=== PATIENT | male | born 1995 | race Caucasian/White ===

== ENCOUNTER 2017-06-22 08:19 | Emergency (ER) | payer OTHER, SELFPAY ==
[2017-06-22 08:21] VITALS: BP 149/80; PULSE 102; RESP 18; TEMP 36.6; O2SAT 97; BMI 40.6
--- NOTE | 2017-06-22 08:32 | XR_ITS ---
XR chest 2V Ordering Physician: Tamara Mason MD Patient Age: 22 years: Male HISTORY: ITS.REASON: chest pain, coughchest pain. Cough. Fever. TECHNIQUE: PA and lateral chest COMPARISON :Previous chest film 10/21/2015 FINDINGS The lungs are well expanded and clear with nothing definitely acute. Heart, john, mediastinal structures are satisfactory chest wall T-spine unremarkable. tram driver leads in place. IMPRESSION: Stable chest No active disease Lungs clear.
--- NOTE | 2017-06-22 08:40 | CA_ITS ---
PROCEDURE: 2-D M-mode and color Doppler study INDICATIONS FOR THE TEST: Chest pain+ COPD Heart Murmur Tobacco Smoking Palpitations Fatigue Syncope Edema Hypertension +Diabetes Mellitus Rheumatic Fever SOB TORRES Obesity+Hyperlipidemia Family History HD Additional History smokeless tobacco PATIENT INFORMATION HEIGHT: 74 WEIGHT: 317 GENDER: Male B/P:121/74 2-D/M-MODE INTERPRETATION: 2-D MEASUREMENTS OBSERVED VALUES IN CMS Right Ventricular Dimension (RVDd) 3.0 Interventricular Septum (Thickness)(IVsd) 1.2 Left Ventricular Internal Dimensions(LVIDd) 5.2 Left Ventricular Posterior Wall (Thickness)(LVPWd) 1.1 Aortic Root 2.8 Aortic Cusp Separation 2.1 Left Atrial Dimensions (LAD) 3.8 2D 1. Left atrium is upper limit of the normal size, left ventricle is normal size, there is no concentric left ventricular hypertrophy, visually estimated ejection fraction 55% with no obvious regional wall motion abnormality. 2.The right atrium is normal size, right ventricle is qualitatively mildly enlarged with normal contractility. 3. The aortic, mitral and tricuspid valve are structurally normal. 4. The pulmonic valve is poorly visualized. 6. No significant pericardial effusion noted. DOPPLER INTERROGATION: Doppler interrogation of the aortic, mitral and tricuspid valvular presence of mild mitral and tricuspid regurgitation, tricuspid and jet velocity insufficient for calculation of the right ventricular systolic pressure, diastolic parameters are within normal range. CONCLUSION: 1. Normal left ventricular size, preserved left ventricular systolic function, visually estimated ejection fraction 55% with no obvious regional wall motion abnormality, diastolic parameters are within normal range. 2. Mild mitral and tricuspid regurgitation. 3. No significant pericardial effusion noted.
--- NOTE | 2017-06-22 08:43 | HMH.EDCP ---
ED Disposition Clinical Impression: Atypical chest pain URI (upper respiratory infection) Qualifiers: URI type: acute pharyngitis Pharyngitis/tonsillitis etiology: unspecified etiology Qualified Code(s): J02.9 - Acute pharyngitis, unspecified Disposition: Home, Self-Care Condition on Discharge: Good Additional Instructions: Take daily low dose aspirin until otherwise specified by cardiology service; see your dependency director in one to two days; call for appointment. Drink lots of fluids, take Tylenol as needed. Continue all current medications. See Davon for follow up on your cough and sore throat next week for recheck, sooner if not improving. Referrals: Davon Concepcion APRN [Primary Care Provider] - - Critical Care Critical Care Time: No Attestation: On , the high probability of a clinically significant, sudden or life threatening deterioration of the following system(s) required my full and direct attention, intervention and personal management. The time I documented below is in addition to time spent performing reported procedures but includes the following listed in this critical care notation. Medical Decision Making - Medical Records Medical records reviewed: Yes: I reviewed the patient's medical records. Vital Signs: 06/22/17 08:21 06/22/17 09:26 Temperature 97.9 F Temperature Source Oral Pulse Rate [Apical] 102 H 86 Respiratory Rate 18 18 Blood Pressure [Right Arm] 149/80 115/57 Blood Pressure Mean [Right Arm] 103 76 Blood Pressure Source [Right Arm] Automatic Cuff Automatic Cuff Blood Pressure Position [Right Arm] Sitting Sitting 02 Sat by Pulse Oximetry 97 Oxygen Delivery Method Room Air - Lab Data Lab results reviewed: Yes: I reviewed the patient's lab results. Lab Results 06/22/17 08:30: WBC 5.3, RBC 5.40, Hgb 15.3, Hct 43.9, MCV 81.4, MCH 28.3, MCHC 34.8, RDW 13.0, Plt Count 255, MPV 7.4, Neut % (Auto) 67.4, Lymph % (Auto) 16.2, [place] % (Auto) 12.2 H, Eos % (Auto) 3.3, Baso % (Auto) 0.9, Neut # (Auto) 3.6, Lymph # (Auto) 0.9, [place] # (Auto) 0.7, Eos # (Auto) 0.2, Baso # (Auto) 0.1 06/22/17 08:30: Total Creatine Kinase 82, CK-MB (CK-2) < 0.5, CK-MB (CK-2) Rel Index 0.6, Troponin I < 0.02 06/22/17 08:30: Influenza Type A Ag Negative, Influenza Type B Ag Negative, Group A Strep Rapid Negative 06/22/17 08:49: Lactic Acid 0.6 ESR added on per request by Jonnathan Fisher and will be checked by Jonnathan Fisher at follow up in Cardiology office. Result diagrams: 06/22/17 08:30 Orders (Tests/Meds): ED MEDICATIONS Discontinued Medications Generic Name Dose Route Start Last Admin Trade Name Marcoq PRN Reason Stop Dose Admin Aspirin 325 mg 06/22/17 09:08 06/22/17 09:19 Aspirin 325mg Tablet PO 06/22/17 09:09 325 mg ONCE ONE Administration Carvedilol 3.125 mg 06/22/17 09:15 06/22/17 09:24 Coreg 3.125mg Tablet PO 07/22/17 09:14 3.125 mg BID SAM Administration Irbesartan 75 mg 06/22/17 09:11 06/22/17 09:24 Avapro 75mg Tablet PO 06/22/17 09:12 75 mg ONCE ONE Administration ORDERS Category Date Time Status XR chest 2V Stat Exams 06/22/17 08:32 Taken ESR [Erythrocyte Sedimentation Rate] Stat Lab 06/22/17 09:52 Ordered Blood Culture Stat Micro 06/22/17 08:49 Received Strep Screen Confirmation Stat Micro 06/22/17 08:30 Received - Radiology Data #1 Image(s): Chest Image Reviewed: Yes I reviewed the patient's radiology image Preliminary Findings: Normal/NAD, No Infiltrates Seen, Normal Lung Inflation Ricky, Normal Heart Size - US Data US Images: Other (cardiac ECHO) ED US Reviewed: Yes: I have reviewed the patient's US results Preliminary Findings: Normal/NAD (Tech states no change from prior echo. Normal, no acute findings. EF 50-55%. No valvular abnormalities. No evidence of pericarditis per my discussion with tach. Final reading is pending.) - ECG Data Tracing #1 I reviewed this ECG and interpreted as documented below: EKG NSR 94; n
--- NOTE | 2017-06-22 08:44 | PC.NURSE ---
[facility] AT [facility] STAFF NOTIFIED OF ORDERS.
[2017-06-22 08:54] LABS: Strep Scrn Group A (Rapid) Negative (Negative)
[2017-06-22 09:01] LABS: Basophils # 0.1 K/mm3 (0-0.2); Basophils % 0.9 % (0.1-2.0); Eosinophils # 0.2 K/mm3 (0.0-0.4); Eosinophils % 3.3 % (0.1-12.0); Hematocrit 43.9 % (42.0-52.0); Hemoglobin 15.3 g/dL (14.1-18.0); Lymphocytes # 0.9 K/mm3 (0.7-4.5); Lymphocytes % 16.2 K/mm3 (10-50); Mean Corpuscular HGB Conc 34.8 g/dL (31.8-35.4); Mean Corpuscular Hemoglobin 28.3 pg (27.0-31.2); Mean Corpuscular Volume 81.4 fl (80-94); Mean Platelet Volume 7.4 fl (7.4-10.4); Monocytes # 0.7 K/mm3 (0.1-1.0); Monocytes % 12.2 % (1.7-9.3); Neutrophils # 3.6 K/mm3 (1.8-7.8); Neutrophils % 67.4 % (37.0-80.0); Platelet Count 255 K/mm3 (142-424); White Blood Count 5.3 K/mm3 (4.8-10.8)
[2017-06-22 09:18] LABS: Lactic Acid 0.6 mmol/L (0.4-2.0)
[2017-06-22 09:26] VITALS: BP 115/57; PULSE 86; RESP 18
[2017-06-22 09:33] LABS: Creatine Kinase 82 U/L (39-308); Troponin I < 0.02 ng/ml (0.00-0.06)
[2017-06-22 09:35] LABS: CKMB Relative Index 0.6 U/L (0-4.0); Creatine Kinase MB < 0.5 mg/ml (0.0-3.6)
--- NOTE | 2017-06-22 09:47 | PC.NURSE ---
GINA casillas contacting AARON BATEMAN
[2017-06-22 10:04] VITALS: BP 108/60; PULSE 90; RESP 18; O2SAT 97
[2017-06-22 10:42] LABS: Erythrocyte Sedimentation Rate 22 mm/hr (0-15)
== END 2017-06-22 10:14 | disposition home or self-care (01) ==
PROVIDERS: Emergency Provider Emergency Medicine; PCP Nurse Practitioner Family
DX: R07.89 Other chest pain (principal); J02.9 Acute pharyngitis, unspecified; I42.9 Cardiomyopathy, unspecified; I10 Essential (primary) hypertension; F17.220 Nicotine dependence, chewing tobacco, uncomplicated; E78.5 Hyperlipidemia, unspecified; Z82.49 Family history of ischemic heart disease and other diseases of the circulatory system; Z79.899 Other long term (current) drug therapy
CPT/HCPCS: 36415; 71046; 82550; 82553; 83605; 84484; 85025; 85651; 87040; 87275; 87276; 87430; 93005; 93041; 93306; 99285

== ENCOUNTER 2017-07-26 17:35 | Emergency (ER) | payer OTHER, SELFPAY ==
[2017-07-26 17:44] VITALS: BP 140/67; PULSE 81; RESP 18; TEMP 37.3; O2SAT 96; BMI 42.2
--- NOTE | 2017-07-26 18:03 | HMH.EDABDPAI ---
ED Disposition Clinical Impression: Abdominal pain of unknown cause Disposition: Home, Self-Care Condition on Discharge: Good Instructions: DI for Acute Abdomen Additional Instructions: 1- clear liquids and soft diet. 2- bentyl 10 mg po q 8 PRN cramps. 3- follow up with Marialuisa Concepcion for a stool studies as an outpatient. 4- to return for fever, vomiting or worse pain. Prescriptions: Dicyclomine HCl [Bentyl 10mg capsule] 10 mg PO Q60MIN PRN #15 cap PRN Reason: Cramping Referrals: Davon Concepcion APRN [Primary Care Provider] - - Critical Care Critical Care Time: No Attestation: On 07/26/17, the high probability of a clinically significant, sudden or life threatening deterioration of the following system(s) required my full and direct attention, intervention and personal management. The time I documented below is in addition to time spent performing reported procedures but includes the following listed in this critical care notation. Medical Decision Making Vital Signs: 07/26/17 17:44 Temperature 99.1 F Temperature Source Oral Pulse Rate [Left Radial] 81 Respiratory Rate 18 Blood Pressure [Right Arm] 140/67 Blood Pressure Mean [Right Arm] 91 Blood Pressure Source [Right Arm] Arterial Line Blood Pressure Position [Right Arm] Sitting 02 Sat by Pulse Oximetry 96 Oxygen Delivery Method Room Air - Lab Data Lab Results 07/26/17 19:15: WBC 10.0, RBC 5.35, Hgb 14.8, Hct 44.3, MCV 82.7, MCH 27.6, MCHC 33.3, RDW 13.5, Plt Count 319, MPV 6.9 L, Neut % (Auto) 68.9, Lymph % (Auto) 20.4, [place] % (Auto) 5.5, Eos % (Auto) 4.7, Baso % (Auto) 0.5, Neut # (Auto) 6.9, Lymph # (Auto) 2.0, [place] # (Auto) 0.6, Eos # (Auto) 0.5 H, Baso # (Auto) 0.1 07/26/17 19:15: Sodium 139, Potassium 3.9, Chloride 102, Carbon Dioxide 30, Anion Gap 10.9, BUN 12, Creatinine 0.93, Estimated Creat Clear 142, Estimated GFR 103, Est GFR ( Amer) 124, Glucose 88, Calcium 8.9, Total Bilirubin 0.4, AST 14 L, ALT 34, Alkaline Phosphatase 120 H, Total Protein 8.6 H, Albumin 4.0, Globulin 4.6 H, Albumin/Globulin Ratio 0.9 L, Lipase 97 Result diagrams: 07/26/17 19:15 07/26/17 19:15 Orders (Tests/Meds): ED MEDICATIONS Discontinued Medications Generic Name Dose Route Start Last Admin Trade Name Rozina PRN Reason Stop Dose Admin Dicyclomine HCl 10 mg 07/26/17 18:09 07/26/17 19:50 Bentyl 10mg Capsule PO 07/26/17 18:10 10 mg ONCE ONE Administration ORDERS Category Date Time Status CT abdomen pelvis wo con Stat Cat Scan 07/26/17 18:08 Taken Urinalysis and Microscopic Stat Lab 07/26/17 18:08 Ordered - Daniel Inquiry Pt receiving controlled substance: No Daniel was queried for this patient: No Medical Decision Making Narrative: Patient underwent negative CT scan normal CBC and CMP negative lipase. I discussed with him the discharge plan. He is to go on clear liquids and soft diet. Will not use antibiotics for the time being. His Bentyl for symptomatic treatment. Up with his PCP Marialuisa Concepcion for outpatient stool studies. He verbalized understanding. Abdominal Pain HPI - General Chief Complaint: Abdominal Pain Stated Complaint: stomach pain Mode of Arrival: Ambulatory Limitations: No Limitations Description of Symptoms (Recalled from ER Triage Doc. by RN): Abd Pain x 4 days, did not take anything , loose mucous like stool - History of Present Illness HPI narrative: 22 years old white male with with the prior cardiac history of dysrhythmia. He developed sudden onset diffuse abdominal pain that is is stabbing/crampy in character involve different quadrants in the abdomen. He denies fever chills nausea vomiting or diarrhea. Hematemesis coffee-ground emesis bleeding per rectum or melanotic stool. He denies having dysuria hematuria frequency. Denies having back pain. He denies being short of breath having palpitations or chest. MD complaint: abdominal pain Onset (ago): day(s) (4 days .)
--- NOTE | 2017-07-26 18:07 | ED_ITS ---
ED Disposition Clinical Impression: Abdominal pain of unknown cause Disposition: Home, Self-Care Condition on Discharge: Good Instructions: DI for Acute Abdomen Additional Instructions: 1- clear liquids and soft diet. 2- bentyl 10 mg po q 8 PRN cramps. 3- follow up with Marialuisa Concepcion for a stool studies as an outpatient. 4- to return for fever, vomiting or worse pain. Prescriptions: Dicyclomine HCl [Bentyl 10mg capsule] 10 mg PO Q60MIN PRN #15 cap PRN Reason: Cramping Referrals: Davon Concepcion APRN [Primary Care Provider] - - Critical Care Critical Care Time: No Attestation: On 07/26/17, the high probability of a clinically significant, sudden or life threatening deterioration of the following system(s) required my full and direct attention, intervention and personal management. The time I documented below is in addition to time spent performing reported procedures but includes the following listed in this critical care notation. Medical Decision Making Vital Signs: 07/26/17 17:44 Temperature 99.1 F Temperature Source Oral Pulse Rate [Left Radial] 81 Respiratory Rate 18 Blood Pressure [Right Arm] 140/67 Blood Pressure Mean [Right Arm] 91 Blood Pressure Source [Right Arm] Arterial Line Blood Pressure Position [Right Arm] Sitting 02 Sat by Pulse Oximetry 96 Oxygen Delivery Method Room Air - Lab Data Lab Results 07/26/17 19:15: WBC 10.0, RBC 5.35, Hgb 14.8, Hct 44.3, MCV 82.7, MCH 27.6, MCHC 33.3, RDW 13.5, Plt Count 319, MPV 6.9 L, Neut % (Auto) 68.9, Lymph % (Auto ) 20.4, [place] % (Auto) 5.5, Eos % (Auto) 4.7, Baso % (Auto) 0.5, Neut # (Auto) 6.9, Lymph # (Auto) 2.0, [place] # (Auto) 0.6, Eos # (Auto) 0.5 H, Baso # (Auto) 0.1 07/26/17 19:15: Sodium 139, Potassium 3.9, Chloride 102, Carbon Dioxide 30, Anion Gap 10.9, BUN 12, Creatinine 0.93, Estimated Creat Clear 142, Estimated GFR 103, Est GFR ( Amer) 124, Glucose 88, Calcium 8.9, Total Bilirubin 0.4, AST 14 L, ALT 34, Alkaline Phosphatase 120 H, Total Protein 8.6 H, Albumin 4.0, Globulin 4.6 H, Albumin/Globulin Ratio 0.9 L, Lipase 97 Result diagrams: 07/26/17 19:15 07/26/17 19:15 Orders (Tests/Meds): ED MEDICATIONS Discontinued Medications Generic Name Dose Route Start Last Admin Trade Name Freq PRN Reason Stop Dose Admin Dicyclomine HCl 10 mg 07/26/17 18:09 07/26/17 19:50 Bentyl 10mg Capsule PO 07/26/17 18:10 10 mg ONCE ONE Administration ORDERS Category Date Time Status CT abdomen pelvis wo con Stat Cat Scan 07/26/17 18:08 Taken Urinalysis and Microscopic Stat Lab 07/26/17 18:08 Ordered - Daniel Inquiry Pt receiving controlled substance: No Daniel was queried for this patient: No Medical Decision Making Narrative: Patient underwent negative CT scan normal CBC and CMP negative lipase. I discussed with him the discharge plan. He is to go on clear liquids and soft diet. Will not use antibiotics for the time being. His Bentyl for symptomatic treatment. Up with his PCP Marialuisa Concepcion for outpatient stool studies. He verbalized understanding. Abdominal Pain HPI - General Chief Complaint: Abdominal Pain Stated Complaint: stomach pain Mode of Arrival: Ambulatory Limitations: No Limitations Description of Symptoms (Recalled from ER Triage Doc. by RN): Abd Pain x 4 days , did not take
--- NOTE | 2017-07-26 18:08 | CT_ITS ---
CT abdomen pelvis wo con CLINICAL INDICATION: Generalized abdominal pain, diffuse abdominal pain ITS.REASON: abdominal pain ORDERING PHYSICIAN: Jus Thomas MD PATIENT AGE: 22 years COMPARISON: None TECHNIQUE: Axial images obtained with sagittal and coronal reformats. PROCEDURE: Oral Contrast: None IV Contrast: None . FINDINGS: Lower thorax: No acute finding ABDOMEN: Liver: No masses or biliary dilatation. Gallbladder: Nondistended. No radio opaque stones. Pancreas: No masses or peripancreatic fluid collections. Spleen: Unremarkable. Adrenals: Unremarkable Kidneys/ureters: No masses. No renal calculi. No hydronephrosis. No perinephric fluid collections. No ureteral dilatation or obvious ureteral calculi. Stomach bowel: Nondistended. No obvious mass or thickening. Appendix: No evidence of appendicitis. PELVIS: Reproductive: Unremarkable Bladder: Nondistended. No obvious stones or masses. ABDOMEN & PELVIS: Peritoneum: No abnormal fluid collections. No obvious inflammatory changes. No free air. Lymph nodes: There are few scattered nonspecific mesenteric lymph nodes. Vasculature: No evidence of abdominal aortic aneurysm. No retroperitoneal hemorrhage evident. Bones: No acute fracture IMPRESSION: No acute abdominal or pelvic findings.
[2017-07-26 19:32] LABS: Basophils # 0.1 K/mm3 (0-0.2); Basophils % 0.5 % (0.1-2.0); Eosinophils # 0.5 K/mm3 (0.0-0.4); Eosinophils % 4.7 % (0.1-12.0); Hematocrit 44.3 % (42.0-52.0); Hemoglobin 14.8 g/dL (14.1-18.0); Lymphocytes % 20.4 K/mm3 (10-50); Mean Corpuscular HGB Conc 33.3 g/dL (31.8-35.4); Mean Corpuscular Hemoglobin 27.6 pg (27.0-31.2); Mean Corpuscular Volume 82.7 fl (80-94); Mean Platelet Volume 6.9 fl (7.4-10.4); Monocytes # 0.6 K/mm3 (0.1-1.0); Monocytes % 5.5 % (1.7-9.3); Neutrophils # 6.9 K/mm3 (1.8-7.8); Neutrophils % 68.9 % (37.0-80.0); Platelet Count 319 K/mm3 (142-424); Red Blood Count 5.35 M/mm3 (4.60-6.20); Red Cell Distribution Width 13.5 % (11.5-17.5)
[2017-07-26 19:43] LABS: Alanine Aminotransferase 34 U/L (12-78); Albumin/Globulin Ratio 0.9 (1.1-1.8); Alkaline Phosphatase 120 U/L (46-116); Anion Gap 10.9 mEq/L (5-15); Aspartate Amino Transferase 14 U/L (15-37); Bilirubin,Total 0.4 mg/dL (0.2-1.0); Blood Urea Nitrogen 12 mg/dL (7-18); Calcium 8.9 mg/dL (8.5-10.1); Carbon Dioxide 30 mmol/L (21.0-32.0); Chloride 102 mmol/L (98-107); Creatinine Clearance Estimated 142 mL/min (0-300); Creatinine,Serum 0.93 mg/dL (0.70-1.30); Estimated Glomerular Filt Rate 103 ml/min (>60); GFR (African American) 124 ML/MIN (>60); Globulin 4.6 gm/dl (1.3-3.2); Glucose 88 mg/dL (74-106); Lipase 97 u/L (73-393); Potassium 3.9 mmoL/L (3.5-5.1); Sodium 139 mmol/L (136-145); Total Protein,Serum 8.6 gm/dL (6.4-8.2)
[2017-07-26 20:02] LABS: Microscopic, Urine URINE MICROSCOPIC (MICROSCOPIC)
[2017-07-26 20:04] LABS: Appearance,Urine CLEAR (Clear); Bilirubin,Urine Negative (Negative); Blood, Urine 1+ (Negative); Color,Urine YELLOW (Yellow); Glucose,Urine (UA) Negative (Negative); Ketones,Urine Negative (Negative); Leukocyte Esterase,Urine Negative (Negative); Nitrate,Urine Negative (Negative); Protein,Urine Negative (Negative); Specific Gravity, Urine 1.015 (1.005-1.030); Urobilinogen,Urine 0.2 EU/dl (0.2)
[2017-07-26 20:18] VITALS: BP 129/91; PULSE 80; RESP 16; TEMP 36.9; O2SAT 100
[2017-07-26 20:48] LABS: WBC,Urine Occasional #/hpf (0-3)
[2017-07-26 20:49] LABS: Bacteria,Urine Trace /lpf; Squamous Epithelial Cell,Urine Occasional #/hpf (0-5)
== END 2017-07-26 20:19 | disposition home or self-care (01) ==
PROVIDERS: Emergency Provider Emergency Medicine; PCP Nurse Practitioner Family
DX: R10.9 Unspecified abdominal pain (principal); E78.5 Hyperlipidemia, unspecified; I10 Essential (primary) hypertension
CPT/HCPCS: 74176; 80053; 81001; 83690; 85025; 99282

== ENCOUNTER → 2017-09-22 10:05 | Outpatient (CLI) | payer OTHER, SELFPAY ==
[2017-09-22 14:25] LABS: Basophils # 0.1 K/mm3 (0-0.2); Basophils % 0.7 % (0.1-2.0); Eosinophils # 0.4 K/mm3 (0.0-0.4); Eosinophils % 6.5 % (0.1-12.0); Hematocrit 47.5 % (42.0-52.0); Lymphocytes # 1.9 K/mm3 (0.7-4.5); Lymphocytes % 27.6 K/mm3 (10-50); Mean Corpuscular HGB Conc 33.6 g/dL (31.8-35.4); Mean Corpuscular Hemoglobin 29.2 pg (27.0-31.2); Mean Corpuscular Volume 86.7 fl (80-94); Mean Platelet Volume 7.6 fl (7.4-10.4); Monocytes # 0.5 K/mm3 (0.1-1.0); Neutrophils % 58.1 % (37.0-80.0); Platelet Count 330 K/mm3 (142-424); Red Blood Count 5.48 M/mm3 (4.60-6.20); Red Cell Distribution Width 13.6 % (11.5-17.5); White Blood Count 6.8 K/mm3 (4.8-10.8)
[2017-09-22 14:41] LABS: Alanine Aminotransferase 34 U/L (12-78); Albumin Level 4.2 gm/dL (3.4-5.0); Alkaline Phosphatase 114 U/L (46-116); Anion Gap 14.6 mEq/L (5-15); Aspartate Amino Transferase 18 U/L (15-37); Bilirubin,Total 0.5 mg/dL (0.2-1.0); Blood Urea Nitrogen 12 mg/dL (7-18); Calcium 9.7 mg/dL (8.5-10.1); Carbon Dioxide 26 mmol/L (21.0-32.0); Chloride 106 mmol/L (98-107); Chol/HDL Ratio 4.9 (1-3.5); Cholesterol 156 mg/dL (140-200); Creatinine,Serum 0.81 mg/dL (0.70-1.30); Estimated Glomerular Filt Rate 120 ml/min (>60); GFR (African American) 146 ML/MIN (>60); Globulin 4.1 gm/dl (1.3-3.2); Glucose 89 mg/dL (74-106); HDL Cholesterol 32 mg/dL (27-67); LDL Cholesterol 93 mg/dL (0-130); Potassium 4.6 mmoL/L (3.5-5.1); Sodium 142 mmol/L (136-145); T4 (Thyroxine) 7.1 ug/dl (4.7-13.3); Thyroid Stimulating Hormone 0.58 uIU/ml (0.358-3.740); Total Protein,Serum 8.3 gm/dL (6.4-8.2); Triglycerides 157 mg/dL (30-200); VLDL Cholesterol 31 mg/dL (0-40)
[2017-09-22 14:45] LABS: Hemoglobin A1C 4.8 % (0.0-7.0)
[2017-09-23 17:42] LABS: Testosterone,Total 226 ng/dL (264-916); Vitamin D 25 Hydroxy 18.9 ng/mL (30.0-100.0)
== END ==
PROVIDERS: Visit Provider Physician Assistant
DX: I10 Essential (primary) hypertension (principal); Z83.3 Family history of diabetes mellitus
CPT/HCPCS: 80053; 80061; 82652; 83036; 84403; 84436; 84443; 85025

== ENCOUNTER → 2018-05-25 16:47 | Outpatient (CLI) | payer OTHER, SELFPAY ==
--- NOTE | 2018-05-25 16:50 | XR_ITS ---
XR abdomen min 2V HISTORY: Periumbilical pain ITS.REASON: ABDOMINAL PAIN ORDERING PHYSICIAN: AARON Garcia PATIENT AGE: 22 years COMPARISON: None FINDINGS: Upright and supine views of the abdomen show a nonspecific nonobstructive bowel gas pattern. There is mild lumbar scoliosis convex left. No acute bony anomalies or abnormal calcifications. IMPRESSION: Mild levoscoliosis otherwise negative
== END ==
PROVIDERS: PCP Physician Assistant; Visit Provider Physician Assistant
DX: R10.9 Unspecified abdominal pain (principal)
CPT/HCPCS: 74019

== ENCOUNTER → 2018-07-21 09:33 | Outpatient (CLI) | payer OTHER, SELFPAY ==
--- NOTE | 2018-07-21 09:35 | CA_ITS ---
PROCEDURE: 2-D M-mode and color Doppler study INDICATIONS FOR THE TEST: Chest pain X COPD Heart Murmur Tobacco Smoking Palpitations Fatigue Syncope Edema HypertensionXDiabetes Mellitus Rheumatic Fever SOB TORRES ObesityXHyperlipidemiaX Family History HD Additional History PATIENT INFORMATION HEIGHT: 73 WEIGHT:319 GENDER: Male B/P:107/68 2-D/M-MODE INTERPRETATION: 2-D MEASUREMENTS OBSERVED VALUES IN CMS Right Ventricular Dimension (RVDd) 2.2 Interventricular Septum (Thickness)(IVsd) .9 Left Ventricular Internal Dimensions(LVIDd) 5.4 Left Ventricular Posterior Wall (Thickness)(LVPWd) 1.2 Aortic Root 3.5 Aortic Cusp Separation 2.4 Left Atrial Dimensions (LAD) 3.1 2D 1. Left atrium is normal size, left ventricle is normal size, there is no concentric left ventricular hypertrophy, visually estimated ejection fraction 55% with no regional wall motion abnormality. 2. The right atrium and right ventricle are normal size and function. 3. The aortic, mitral and tricuspid valvular grossly normal. 4. The pulmonic valve is poorly present. 5. No significant pericardial effusion noted DOPPLER INTERROGATION: Doppler tricuspid valvular presence of mild mitral and tricuspid regurgitation, diastolic parameters are within normal range. Tricuspid regurgitation jet velocity is inadequate for calculation of the right ventricular systolic pressure. CONCLUSION: 1. Normal left ventricular size, visually estimated ejection fraction 55% with no regional wall motion abnormality, diastolic parameters are within normal range. 2. Mild mitral and tricuspid regurgitation 3. No significant pericardial effusion noted.
== END ==
PROVIDERS: PCP Emergency Medicine; Visit Provider Physician Assistant
DX: R07.9 Chest pain, unspecified (principal); I10 Essential (primary) hypertension; E66.01 Morbid (severe) obesity due to excess calories
CPT/HCPCS: 93017; 93306

== ENCOUNTER → 2019-04-11 06:51 | Outpatient (CLI) | payer OTHER, SELFPAY ==
--- NOTE | 2019-04-11 06:56 | CT_ITS ---
PROCEDURE: CT ANGIO CORONARY ARTERY CLINCAL INDICATION: chest pain Incomplete right bundle branch block, chest pain, inferior infarct age indeterminate COMPARISON: No exams were available for comparison TECHNIQUE: IV Contrast: 150 mL Optiray 350 Axial images obtained with sagittal and coronal reformats. All CT scans at the facility use one or more dose reduction, viz: automated exposure control, ma/kV adjustment per patient size (including targeted exams where dose is matched to indication, i.e. head), or iterative reconstruction technique. FINDINGS: Gated CT coronary angiogram performed. No preoperative medication needed for bradycardia. No immediate complications. The left main coronary artery has an unremarkable appearance. The LAD and circumflex and RCA are also unremarkable. RCA is the dominant supply to the inferior wall. Posterior lateral branch the left ventricle is identified with an unremarkable appearance. The most distal aspect of the coronary arteries are not well delineated due to their small size and motion and cannot be adequately assessed. IMPRESSION: Negative CT coronary arteries Dictated by: Edgar Garcia MD 04/12/2019 12:23 Electronically signed by Edgar Garcia MD in [place] 04/16/2019 10:00
--- NOTE | 2019-04-11 12:48 | PC.NURSE ---
0723- Pt to preop per radiology, scheduled for CTA. b/p 139/67, p 68, r 18. 0745- 155/71, p: 61, sao2 96% on ra. #18g angiocath inserted pt's l ac x3rd try. Radiology notified of pt's v/s and iv site. 0800- pt transferred to radiology per wheelchair accompanied per radiology staff.
== END ==
PROVIDERS: PCP Nurse Practitioner Family; Visit Provider Nurse Practitioner Family
DX: R07.89 Other chest pain (principal); R06.09 Other forms of dyspnea; E66.01 Morbid (severe) obesity due to excess calories; I10 Essential (primary) hypertension
CPT/HCPCS: 75574; Q9967

== ENCOUNTER → 2019-05-15 08:37 | Outpatient (CLI) | payer OTHER, SELFPAY ==
--- NOTE | 2019-05-15 08:38 | US_ITS ---
PROCEDURE: US ABDOMEN LIMITED CLINICAL INDICATION: RUQ Pain after eating COMPARISON: No exams were available for comparison FINDINGS: PANCREAS: Unremarkable. No obvious mass or abnormal fluid collection. No ductal dilatation LIVER: No focal liver lesions demonstrated. Homogeneous echogenicity. No intrahepatic biliary ductal dilatation evident. There is appropriate direction of blood flow within a non dilated portal vein. Overall there is increased echogenicity of the liver consistent with hepatic steatosis. RIGHT KIDNEY: Unremarkable. Normal size and echogenicity. No hydronephrosis GALLBLADDER: No gallstones, gallbladder wall thickening, pericholecystic fluid, or biliary dilatation. IMPRESSION: Fatty liver otherwise negative right upper quadrant ultrasound Dictated by: Edgar Garcia MD 05/16/2019 12:41 Electronically signed by Edgar Garcia MD in [facility] 05/16/2019 12:41
== END ==
PROVIDERS: PCP Physician Assistant; Visit Provider Physician Assistant
DX: R10.11 Right upper quadrant pain (principal)
CPT/HCPCS: 76705

== ENCOUNTER → 2020-04-21 19:04 | Outpatient (CLI) | payer OTHER, SELFPAY ==
[2020-04-21 19:18] LABS: Basophils # 0.1 K/mm3 (0-0.2); Basophils % 0.7 % (0.1-2.0); Eosinophils # 0.5 K/mm3 (0.0-0.4); Eosinophils % 5.6 % (0.1-12.0); Hemoglobin 16.1 g/dL (14.1-18.0); Lymphocytes # 2.3 K/mm3 (0.7-4.5); Mean Corpuscular HGB Conc 33.5 g/dL (31.8-35.4); Mean Corpuscular Hemoglobin 28.5 pg (27.0-31.2); Mean Corpuscular Volume 85.1 fl (80-94); Mean Platelet Volume 8.8 fl (7.4-10.4); Monocytes # 0.5 K/mm3 (0.1-1.0); Monocytes % 5.7 % (1.7-9.3); Neutrophils # 5.1 K/mm3 (1.8-7.8); Platelet Count 345 K/mm3 (142-424); Red Blood Count 5.64 M/mm3 (4.60-6.20); Red Cell Distribution Width 13.4 % (11.5-17.5); White Blood Count 8.4 K/mm3 (4.8-10.8)
[2020-04-21 19:40] LABS: Alanine Aminotransferase 22 U/L (12-78); Albumin Level 4.4 g/dl (3.5-5.0); Albumin/Globulin Ratio 1.3 (1.1-1.8); Alkaline Phosphatase 99 U/L (38-126); Anion Gap 17.4 mEq/L (5-15); Aspartate Amino Transferase 25 U/L (17-59); Bilirubin,Total 0.7 mg/dl (0.2-1.3); Blood Urea Nitrogen 13 mg/dl (9-20); Calcium 9.8 mg/dl (8.4-10.2); Carbon Dioxide 23 mmol/L (22.0-30.0); Chloride 104 mmol/L (98-107); Chol/HDL Ratio 5.1 (1-3.5); Cholesterol 158 mg/dl (140-200); Estimated Glomerular Filt Rate 120 ml/min (>60); GFR (African American) 145 ML/MIN (>60); Globulin 3.3 g/dL (1.3-3.2); Glucose 111 mg/dl (74-100); HDL Cholesterol 31 mg/dl (40-60); Potassium 4.4 mmoL/L (3.5-5.1); Sodium 140 mmol/L (136-145); Total Protein,Serum 7.7 g/dl (6.3-8.2); Triglycerides 154 mg/dl (30-150); VLDL Cholesterol 31 mg/dL (0-40)
[2020-04-21 19:51] LABS: Direct LDL Cholesterol 105.71 mg/dL (100-129)
[2020-04-21 19:57] LABS: Free T4 (Free Thyroxine) 1.18 ng/dl (0.78-2.19)
[2020-04-21 19:58] LABS: 25-OH Vitamin D, Total 29.5 ng/mL (30-100)
[2020-04-21 20:10] LABS: Thyroid Stimulating Hormone 0.55 uIU/mL (0.465-4.68)
== END ==
PROVIDERS: Visit Provider Physician Assistant
DX: I10 Essential (primary) hypertension (principal); E55.9 Vitamin D deficiency, unspecified; E66.01 Morbid (severe) obesity due to excess calories
CPT/HCPCS: 80053; 80061; 82306; 84439; 84443; 85025

== ENCOUNTER 2020-08-14 23:51 | Emergency (ER) | payer OTHER, SELFPAY ==
[2020-08-14 23:52] VITALS: BP 142/83; PULSE 97; RESP 18; TEMP 36.6; O2SAT 97; BMI 40.8
--- NOTE | 2020-08-15 00:21 | HMH.EDGENADL ---
ED Disposition Clinical Impression: Kidney stone Disposition: Home, Self-Care Condition on Discharge: Good Instructions: Kidney Stones -- Adult Prescriptions: Ketorolac Tromethamine [Toradol 10mg tablet] 10 mg PO Q6H 5 Days #20 tab Transmission Status: Pending to [id number] Ondansetron [Zofran 4mg ODT] 4 mg PO TIDP PRN #15 tab PRN Reason: Nausea Transmission Status: Pending to [id number] Referrals: Davon Concepcion APRN [Primary Care Provider] - - Critical Care Critical Care Time: No Attestation: On 08/14/20, the high probability of a clinically significant, sudden or life threatening deterioration of the following system(s) required my full and direct attention, intervention and personal management. The time I documented below is in addition to time spent performing reported procedures but includes the following listed in this critical care notation. Medical Decision Making - Medical Records Medical records reviewed: Yes: I reviewed the patient's medical records. - Daniel Inquiry Pt receiving controlled substance: No Vital Signs: 08/14/20 23:52 Temperature 97.9 F Temperature Source Oral Pulse Rate [Right Radial] 97 H Respiratory Rate 18 Blood Pressure [Right Arm] 142/83 H Blood Pressure Mean [Right Arm] 102 Blood Pressure Source [Right Arm] Automatic Cuff Blood Pressure Position [Right Arm] Sitting 02 Sat by Pulse Oximetry 97 Oxygen Delivery Method Room Air - Lab Data Lab Results 08/15/20 00:22: Urine Color Yellow, Urine Appearance Clear, Urine pH 6.0, Ur Specific [place] >= 1.030, Urine Protein Negative, Urine Glucose (UA) Negative, Urine Ketones Negative, Urine Blood 3+, Urine Nitrate Negative, Urine Bilirubin Negative, Urine Urobilinogen 0.2, Ur Leukocyte Esterase Negative 08/15/20 00:22: Sodium 141, Potassium 4.1, Chloride 107, Carbon Dioxide 27, Anion Gap 11.1, BUN 17, Creatinine 1.00, Estimated Creat Clear 227, Estimated GFR 92, Est GFR ( Amer) 111, Glucose 92, Calcium 9.5 Result diagrams: 08/15/20 00:22 Orders (Tests/Meds): ED MEDICATIONS Generic Name Dose Route Start Last Admin Trade Name Freq PRN Reason Stop Dose Admin Sodium Chloride 1,000 mls @ 999 mls/hr 08/15/20 00:15 08/15/20 00:15 Sod Chlor 0.9% 1000ml Bag IV 08/15/20 01:15 999 mls/hr .Q1H1M SAM Administration Discontinued Medications Generic Name Dose Route Start Last Admin Trade Name Marcoq PRN Reason Stop Dose Admin Ketorolac Tromethamine 30 mg 08/15/20 00:08 08/15/20 00:15 Ketorolac 30mg/Ml Vial IV 08/15/20 00:09 30 mg ONCE ONE Administration ORDERS Category Date Time Status Urinalysis and Microscopic Stat Lab 08/15/20 00:22 Results Medical Decision Narrative: 25-year-old male presents with right-sided abdominal pain. Bedside ultrasound does not show any evidence of cholelithiasis or acute cholecystitis with normal anterior wall. He has no Carlson sign or tenderness over the gallbladder as well. No concern for perforation or ischemia as he does not have acute abdomen on exam. No concern for obstruction either. The pain is possibly related to an acute kidney stone, urinalysis and laboratory evaluation obtained. Plan to assess with renal ultrasound as well. Bedside renal ultrasound shows mild hydronephrosis with no obstructing stone. Creatinine was within normal limits and urinalysis showed hematuria. Exam history and labs consistent with kidney stone. Given strict return precautions for worsening pain vomiting or any other concerns and discharged General Adult HPI - General Chief complaint: PAIN Stated complaint: Sharp pain in right side bottom of rib cage Time Seen by Provider: 08/15/20 00:10 Mode of Arrival: Ambulatory Limitations: No Limitations Description of Symptoms (Recalled from ER Triage Doc. by RN): Pt c/o right side rib pain, sharp in nature. He states it started around 5pm while driving home. Pt denies injury or any other
[2020-08-15 00:35] LABS: Microscopic, Urine URINE MICROSCOPIC (MICROSCOPIC)
[2020-08-15 00:41] LABS: Chloride 107 mmol/L (98-107); Potassium 4.1 mmoL/L (3.5-5.1); Sodium 141 mmol/L (136-145)
[2020-08-15 00:44] LABS: Anion Gap 11.1 mEq/L (5-15); Blood Urea Nitrogen 17 mg/dl (9-20); Calcium 9.5 mg/dl (8.4-10.2); Carbon Dioxide 27 mmol/L (22.0-30.0); Creatinine Clearance Estimated 227 mL/min (50-200); Estimated Glomerular Filt Rate 92 ml/min (>60); GFR (African American) 111 ML/MIN (>60); Glucose 92 mg/dl (74-100)
[2020-08-15 00:50] LABS: Appearance,Urine CLEAR (Clear); Bilirubin,Urine Negative (Negative); Blood, Urine 3+ (Negative); Color,Urine YELLOW (Yellow); Glucose,Urine (UA) Negative (Negative); Ketones,Urine Negative (Negative); Leukocyte Esterase,Urine Negative (Negative); Nitrate,Urine Negative (Negative); Protein,Urine Negative (Negative); Specific Gravity, Urine >= 1.030 (1.005-1.030); Urobilinogen,Urine 0.2 EU/dl (0.2)
[2020-08-15 01:00] LABS: Bacteria,Urine 1+ /lpf; Mucus,Urine 1+ /lpf
[2020-08-15 01:07] VITALS: BP 128/72; PULSE 82; RESP 16; TEMP 36.4; O2SAT 99
== END 2020-08-15 01:11 | disposition home or self-care (01) ==
PROVIDERS: Emergency Provider Emergency Medicine; PCP Nurse Practitioner Family
DX: N20.0 Calculus of kidney (principal); E78.5 Hyperlipidemia, unspecified; I10 Essential (primary) hypertension; F17.290 Nicotine dependence, other tobacco product, uncomplicated
CPT/HCPCS: 80048; 81001; 96365; 96375; 99282

== ENCOUNTER → 2020-08-25 14:04 | Outpatient (CLI) | payer OTHER, SELFPAY | PROVIDERS: Visit Provider Emergency Medicine | DX: R82.90 Unspecified abnormal findings in urine (principal) | CPT/HCPCS: 87086 ==

== ENCOUNTER → 2020-08-29 09:05 | Outpatient (CLI) | payer OTHER, SELFPAY ==
--- NOTE | 2020-08-29 09:05 | CT_ITS ---
PROCEDURE: CT ABDOMEN PELVIS WO CON CLINICAL INDICATION: renal calculus Bilateral flank pain COMPARISON: CT ABDPELWO CT abdomen pelvis wo con from 06/08/2018 TECHNIQUE: Axial images obtained with sagittal and coronal reformats. All CT scans at the facility use one or more dose reduction, viz: automated exposure control, ma/kV adjustment per patient size (including targeted exams where dose is matched to indication, i.e. head), or iterative reconstruction technique. FINDINGS: LOWER THORAX: No acute finding ABDOMEN & PELVIS: The liver has an unremarkable appearance. There is borderline splenomegaly at 14 cm. No radiopaque gallstones apparent. Adrenal glands are unremarkable. In the pancreatic tail there is a solid-appearing nodular region measuring 2.6 cm. There are mesenteric lymph nodes. Small lymph node is present along the head of the pancreas at 14 mm unchanged. Kidneys: No renal or ureteral calculi. No hydronephrosis. No obvious renal mass. Evaluation of the kidneys limited without IV contrast. Unremarkable appendix. No intestinal obstruction or free air. Mild degenerative changes lumbar spine and thoracic spine. There is a tiny umbilical hernia containing fat IMPRESSION: 1. No evidence of renal or ureteral calculi. 2. There is fullness of the pancreatic tail having a solid appearance measuring 2.6 cm. This is probably not significantly changed however, further evaluation with MRI is suggested to confirm the presence or absence of a true lesion. There are few small peripancreatic lymph nodes which are nonspecific and not significantly changed. Small nodes are present also in the mesenteries. Dictated by: Edgar Garcia MD 08/30/2020 11:12 Edgar Garcia MD in [place] 08/30/2020 11:12
== END ==
PROVIDERS: PCP Nurse Practitioner Family; Visit Provider Emergency Medicine
DX: N20.0 Calculus of kidney (principal)
CPT/HCPCS: 74176

== ENCOUNTER 2020-11-24 08:03 | Emergency (ER) | payer OTHER, SELFPAY ==
[2020-11-24 08:04] VITALS: BP 119/74; PULSE 82; RESP 16; TEMP 37; O2SAT 98; BMI 41.1
[2020-11-24 08:55] LABS: Strep Scrn Group A (Rapid) Negative (Negative)
--- NOTE | 2020-11-24 08:58 | HMH.EDGENADL ---
ED Disposition Clinical Impression: Acute viral syndrome Pharyngitis Qualifiers: Pharyngitis/tonsillitis etiology: other specified organisms Qualified Code(s): J02.8 - Acute pharyngitis due to other specified organisms Disposition: Home, Self-Care Condition on Discharge: Good Instructions: DI for Viral Pharyngitis Prescriptions: Ibuprofen [Ibuprofen 800mg Tablet] 800 mg PO TIDP PRN #20 tab PRN Reason: Moderate Pain Transmission Status: Pending to [facility] Referrals: Karyn Rivera PA [Primary Care Provider] - - Critical Care Critical Care Time: No Attestation: On 11/24/20, the high probability of a clinically significant, sudden or life threatening deterioration of the following system(s) required my full and direct attention, intervention and personal management. The time I documented below is in addition to time spent performing reported procedures but includes the following listed in this critical care notation. Medical Decision Making - Medical Records Medical records reviewed: Yes: I reviewed the patient's medical records. - Daniel Inquiry Pt receiving controlled substance: No Vital Signs: 11/24/20 08:04 Temperature 98.6 F Temperature Source Oral Pulse Rate [Radial] 82 Respiratory Rate 16 Blood Pressure [Right Arm] 119/74 Blood Pressure Mean [Right Arm] 89 Blood Pressure Position [Right Arm] Sitting 02 Sat by Pulse Oximetry 98 - Lab Data Lab Results 11/24/20 08:00: Group A Strep Rapid Negative Orders (Tests/Meds): ED MEDICATIONS Discontinued Medications Generic Name Dose Route Start Last Admin Trade Name Freq PRN Reason Stop Dose Admin Ketorolac Tromethamine 30 mg 11/24/20 08:24 11/24/20 09:08 Ketorolac 30mg/Ml Vial IM 11/24/20 08:25 30 mg ONCE ONE Administration Lidocaine HCl 15 ml 11/24/20 08:25 11/24/20 09:08 Lidocaine 2% Viscous Roxana 15ml Udc PO 11/24/20 08:26 15 ml ONCE ONE Administration ORDERS Category Date Time Status Strep Screen Confirmation Stat Micro 11/24/20 08:00 Received - Reevaluation(s) Time: 09:35 Reevaluation #1: On reevaluation, patient is feeling better. Repeat exam is benign. Patient is tolerating oral intake. Strep was negative. Patient will be provided symptomatic management. Need to follow-up with PCP in 48 hours. Given strict return precautions. Verbalized understanding. Medical Decision Narrative: 25-year-old male presented to the emergency department with some sore throat. Findings are consistent with pharyngitis. Swab obtained. Patient treated symptomatically. General Adult HPI - General Chief complaint: PAIN Stated complaint: sore throat Time Seen by Provider: 11/24/20 08:10 Mode of Arrival: Ambulatory Limitations: No Limitations Description of Symptoms (Recalled from ER Triage Doc. by RN): to ed per pvt car with c/o sorethroat x 3 days. denies fever, chills, nause - History of Present Illness HPI narrative: Is a 25-year-old male presented to the emergency department with some sore throat. Patient has had the symptoms for the last 3 days. States that he had positive sick contact for his nephew who had similar symptoms. Patient states that the pain is worse when he swallows. He has not had any associated cough. Nonproductive nature hemoptysis. Patient denies any neck pain. No fevers or chills. Not have any headache or change in vision. No focal weakness. No abdominal pain or vomiting. No diarrhea. - Related Data Previous Rx's Medication Instructions Recorded amoxicillin 500 mg tablet 500 mg PO BID 10 Days #20 tab 10/23/20 benzonatate 100 mg capsule 100 mg PO TID PRN #14 cap 10/25/20 Ibuprofen [Ibuprofen 800mg 800 mg PO TIDP PRN #20 tab 11/24/20 Tablet] Allergies Allergy/AdvReac Type Severity Reaction Status Date / Time STRAWBERRIES (FOOD) Allergy Unknown I-HIVES Uncoded 10/23/20 13:48 [facility] History - Hepatitis A Screen Drug u
[2020-11-24 09:59] VITALS: BP 110/78; PULSE 78; RESP 16; TEMP 36.6; O2SAT 98
== END 2020-11-24 10:03 | disposition home or self-care (01) ==
PROVIDERS: Emergency Provider Emergency Medicine; PCP Physician Assistant
DX: B34.9 Viral infection, unspecified (principal); J02.8 Acute pharyngitis due to other specified organisms
CPT/HCPCS: 87430; 99282

== ENCOUNTER 2020-12-07 10:55 | Emergency (ER) | payer OTHER, SELFPAY ==
[2020-12-07 10:55] VITALS: BP 120/91; PULSE 80; RESP 18; TEMP 36.5; O2SAT 96; BMI 42.2
--- NOTE | 2020-12-07 11:08 | HMH.EDUTC ---
[facility] [place] Clinical Impression: Otitis media Qualifiers: Otitis media type: unspecified Laterality: bilateral Qualified Code(s): H66.93 - Otitis media, unspecified, bilateral Disposition: Home, Self-Care Condition on Discharge: Good Instructions: Middle Ear Infection, Ear Infections (Alternative Therapy), Amoxicillin, Prednisone Additional Instructions: *Monitor Temp, Over the counter Motrin or Tylenol as directed/as needed Tylenol every 4 hours and Motrin every 6 hours (as long as your family doctor has told you that you can take it) for fever or pain. and straight to ER if unable to lower temp less than 101.0 after medication given *Warm fluids like tea with honey may help to soothe the throat and open up nasal passages and allow fluid to drain *Sleep elevated *Humidifier/Vaporizer *Flonase 2 sprays in each nostril daily but be aware that it may take 2-3 days before you notice improvement Take antibiotics as prescribed Follow up IMMEDIATELY for new or worsening symptoms or no Noticeable improvement over the next 48-72 hours. 911 for difficulty breathing or swallowing Prescriptions: Amoxicillin [Amoxicillin 875MG Tab] 875 mg PO Q12H #20 tab Transmission Status: [facility] Fluticasone Propionate [Flonase 50mcg nasal spray 16gm] 1 spr NS DAILY #1 bottle Transmission Status: [facility] predniSONE [Prednisone 20mg Tab] 20 mg PO BID 5 Days #10 tab Transmission Status: [facility] Referrals: Karyn Rivera PA [Primary Care Provider] - As needed Time of Disposition: 11:16 Medical Decision Making - Daniel Inquiry Pt receiving controlled substance: No Daniel was queried for this patient: No Vital Signs: 12/07/20 10:55 Temperature 97.7 F Temperature Source Oral Pulse Rate [Right Brachial] 80 Respiratory Rate 18 Blood Pressure [Right Arm] 120/91 H Blood Pressure Mean [Right Arm] 100 Blood Pressure Source [Right Arm] Automatic Cuff Blood Pressure Position [Right Arm] Sitting 02 Sat by Pulse Oximetry 96 Oxygen Delivery Method Room Air [facility] [place] - General Stated complaint: pressure/cant hear out of R ear pain L ear Time Seen by Provider: 12/07/20 11:08 Mode of Arrival: Ambulatory Source of Information: Patient Limitations: No Limitations Description of Symptoms (Recalled from Triage Doc. by RN): PATIENT C/O BILATERAL EAR PAIN WITH DECREASED HEARING IN RIGHT EAR X 1 WEEK HEENT Symptoms (Recalled from RN notes): Yes Resp Symptoms (Recalled from RN notes): No Skin Symptoms (Recalled from RN notes): No MS Symptoms (Recalled from RN notes): No Functional Status (Recalled from RN notes): WNL - History of Present Illness Provider Complaint: Patient states that he has been having pain in both ears for over a week and having decreased hearing and feeling of fullness in his right ear States that he has tries warm water and everything to get it to open up but it wont and today it was hurting worse so he came in to get it checked - Related Data Previous Rx's Medication Instructions Recorded Amoxicillin [Amoxicillin 875MG 875 mg PO Q12H #20 tab 12/07/20 Tab] Fluticasone Propionate [Flonase 1 spr NS DAILY #1 bottle 12/07/20 50mcg nasal spray 16gm] predniSONE [Prednisone 20mg 20 mg PO BID 5 Days #10 tab 12/07/20 Tab] Allergies Allergy/AdvReac Type Severity Reaction Status Date / Time STRAWBERRIES (FOOD) Allergy Unknown I-HIVES Uncoded 10/23/20 13:48 - Worker's Comp Is this a Worker's Comp case?: No [facility] History - Hepatitis A Screen Drug use history?: No High risk sexual behaviors?: No History of sexually transmitted infection?: No Currently employed?: No Childcare worker?: No Do you have indoor plumbing?: Yes Do you have electricity?: Yes Attestation statement:: This patient has been screened for Hepatitis A risk factors. I have reviewed the patient's past medical history: Yes Medical History: Rep
[2020-12-07 11:11] VITALS: BP 120/91; PULSE 80; RESP 18; TEMP 36.5; O2SAT 96
== END 2020-12-07 11:25 | disposition home or self-care (01) ==
PROVIDERS: Emergency Provider Nurse Practitioner; PCP Physician Assistant
DX: H66.93 Otitis media, unspecified, bilateral (principal); E78.5 Hyperlipidemia, unspecified; I10 Essential (primary) hypertension
CPT/HCPCS: 99202; G0463

== ENCOUNTER → 2020-12-22 12:43 | Outpatient (POV) | payer OTHER, SELFPAY | PROVIDERS: Visit Provider Nurse Practitioner Family | DX: Z00.00 Encounter for general adult medical examination without abnormal findings (principal) ==

== ENCOUNTER → 2020-12-22 14:28 | Outpatient (CLI) | payer OTHER, SELFPAY ==
[2020-12-22 14:44] LABS: Basophils # 0.1 K/mm3 (0-0.2); Basophils % 0.8 % (0.1-2.0); Eosinophils # 0.5 K/mm3 (0.0-0.4); Eosinophils % 4.7 % (0.1-12.0); Hematocrit 44.2 % (42.0-52.0); Lymphocytes # 2.5 K/mm3 (0.7-4.5); Lymphocytes % 23.9 % (10-50); Mean Corpuscular Hemoglobin 27.9 pg (27.0-31.2); Mean Platelet Volume 7.2 fl (7.4-10.4); Monocytes # 0.5 K/mm3 (0.1-1.0); Monocytes % 4.5 % (1.7-9.3); Neutrophils # 6.9 K/mm3 (1.8-7.8); Neutrophils % 66.1 % (37.0-80.0); Platelet Count 334 K/mm3 (142-424); Red Blood Count 5.38 M/mm3 (4.60-6.20); Red Cell Distribution Width 13.9 % (11.5-17.5); White Blood Count 10.4 K/mm3 (4.8-10.8)
[2020-12-22 16:31] LABS: Triiodothryronine (T3) Uptake 33 % (23.5-40.5)
[2020-12-22 16:32] LABS: T4 (Thyroxine) 9.8 ug/dl (5.53-11.0)
[2020-12-22 16:48] LABS: Thyroid Stimulating Hormone 0.45 uIU/mL (0.465-4.68)
[2020-12-22 19:21] LABS: Free Thyroxine Index 3.2 ug/dL (5.93-13.13)
[2020-12-22 20:08] LABS: Alanine Aminotransferase 44 U/L (12-78); Albumin Level 4.6 g/dl (3.5-5.0); Albumin/Globulin Ratio 1.4 (1.1-1.8); Alkaline Phosphatase 97 U/L (38-126); Amylase 49 U/L (30-110); Anion Gap 16.1 mEq/L (5-15); Aspartate Amino Transferase 30 U/L (17-59); Bilirubin,Total 0.4 mg/dl (0.2-1.3); Blood Urea Nitrogen 14 mg/dl (9-20); Calcium 9.2 mg/dl (8.4-10.2); Carbon Dioxide 27 mmol/L (22.0-30.0); Chloride 104 mmol/L (98-107); Estimated Glomerular Filt Rate 119 ml/min (>60); GFR (African American) 144 ML/MIN (>60); Globulin 3.3 g/dL (1.3-3.2); Glucose 84 mg/dl (74-100); Lipase 62 U/L (23-300); Potassium 5.1 mmoL/L (3.5-5.1); Sodium 142 mmol/L (136-145); Total Protein,Serum 7.9 g/dl (6.3-8.2)
[2020-12-24 09:01] LABS: CA 19-9 <2 U/mL (0-35)
== END ==
PROVIDERS: Nurse Practitioner Family; Visit Provider Urology
DX: I10 Essential (primary) hypertension (principal); K21.9 Gastro-esophageal reflux disease without esophagitis; E66.01 Morbid (severe) obesity due to excess calories; R06.09 Other forms of dyspnea; R07.89 Other chest pain
CPT/HCPCS: 36415; 80053; 82150; 83690; 84436; 84443; 84479; 85025; 86316

== ENCOUNTER → 2021-01-15 08:22 | Outpatient (CLI) | payer OTHER, SELFPAY ==
[2021-01-15 08:41] LABS: Basophils # 0.1 K/mm3 (0-0.2); Eosinophils # 0.5 K/mm3 (0.0-0.4); Eosinophils % 6.3 % (0.1-12.0); Hematocrit 44.9 % (42.0-52.0); Hemoglobin 15.2 g/dL (14.1-18.0); Lymphocytes % 26.5 % (10-50); Mean Corpuscular HGB Conc 33.9 g/dL (31.8-35.4); Mean Corpuscular Hemoglobin 27.5 pg (27.0-31.2); Monocytes # 0.6 K/mm3 (0.1-1.0); Monocytes % 8.3 % (1.7-9.3); Neutrophils # 4.2 K/mm3 (1.8-7.8); Neutrophils % 57.9 % (37.0-80.0); Platelet Count 298 K/mm3 (142-424); Red Blood Count 5.54 M/mm3 (4.60-6.20); Red Cell Distribution Width 14.2 % (11.5-17.5); White Blood Count 7.3 K/mm3 (4.8-10.8)
[2021-01-15 09:10] LABS: Chloride 105 mmol/L (98-107); Potassium 4.7 mmoL/L (3.5-5.1); Sodium 140 mmol/L (136-145)
[2021-01-15 09:13] LABS: Alanine Aminotransferase 29 U/L (12-78); Albumin Level 4.5 g/dl (3.5-5.0); Albumin/Globulin Ratio 1.4 (1.1-1.8); Alkaline Phosphatase 103 U/L (38-126); Anion Gap 13.7 mEq/L (5-15); Aspartate Amino Transferase 28 U/L (17-59); Bilirubin,Total 0.4 mg/dl (0.2-1.3); Blood Urea Nitrogen 16 mg/dl (9-20); Carbon Dioxide 26 mmol/L (22.0-30.0); Estimated Glomerular Filt Rate 104 ml/min (>60); GFR (African American) 125 ML/MIN (>60); Globulin 3.2 g/dL (1.3-3.2); Total Protein,Serum 7.7 g/dl (6.3-8.2)
[2021-01-15 09:14] LABS: Calcium 9.5 mg/dl (8.4-10.2); Glucose 91 mg/dl (74-100)
[2021-01-15 09:31] LABS: T4 (Thyroxine) 9.1 ug/dl (5.53-11.0)
[2021-01-15 09:44] LABS: Thyroid Stimulating Hormone 0.39 uIU/mL (0.465-4.68)
[2021-01-16 09:15] LABS: Testosterone,Total 232 ng/dL (264-916); Thyroid Peroxidase Antibodies 9 IU/mL (0-34)
[2021-01-19 17:09] LABS: Thyroid Stimulating Immunoglob <0.10 IU/L (0.00-0.55)
== END ==
PROVIDERS: Visit Provider Physician Assistant
DX: R68.82 Decreased libido (principal); R79.89 Other specified abnormal findings of blood chemistry; R93.5 Abnormal findings on diagnostic imaging of other abdominal regions, including retroperitoneum
CPT/HCPCS: 80053; 84403; 84436; 84443; 84445; 85025; 86376

== ENCOUNTER → 2021-01-20 08:45 | Outpatient (CLI) | payer OTHER, SELFPAY | PROVIDERS: PCP Physician Assistant; Visit Provider Nurse Practitioner Family | DX: K86.89 Other specified diseases of pancreas (principal) ==

== ENCOUNTER → 2021-01-23 12:32 | Outpatient (CLI) | payer OTHER, SELFPAY | PROVIDERS: PCP Nurse Practitioner Family; Visit Provider Emergency Medicine | DX: Z20.822 Contact with and (suspected) exposure to COVID-19 (principal) | CPT/HCPCS: U0003 ==

== ENCOUNTER 2021-03-22 09:09 | Emergency (ER) | payer OTHER, SELFPAY ==
[2021-03-22 09:23] VITALS: BP 125/80; PULSE 86; RESP 16; TEMP 36.6; O2SAT 98; BMI 42.2
[2021-03-22 09:27] VITALS: BP 125/80; PULSE 86; RESP 16; TEMP 36.6
[2021-03-22 09:29] LABS: UTC Strep Screen (Rapid) Positive (Negative)
--- NOTE | 2021-03-22 09:46 | HMH.EDUTC ---
[facility] [place] Impression: Strep throat Disposition: Home, Self-Care Condition on Discharge: Good Instructions: Strep Throat, DI for Strep Throat Additional Instructions: Drink plenty of fluids. Take tylenol or ibuprofen for pain or fever. Take the medications as directed. Follow up with your regular doctor. GO TO THE ER FOR ANY WORSENING SYMPTOMS Quarantine until you know the results of your covid-19 test. If it is positive, the health department should call you and give you further instructions about your length of Quarantine and other things. Notify your school or workplace of your results and follow their instructions regarding return to work/school. Prescriptions: Brompheniramine/Pseudoephed/Dm [Bromfed Dm Cough Syrup] 5 ml PO Q6HP PRN #240 ml PRN Reason: Cough Transmission Status: Received by [email or web address] Amoxicillin/Potassium Clav [Augmentin 875-125 Tablet] 1 tab PO Q12H 10 Days #20 tab Transmission Status: Received by [email or web address] predniSONE [Deltasone 10mg tablet] 10 mg PO BID 3 Days #6 tab Transmission Status: Received by [email or web address] Referrals: Davon Concepcion APRN [Primary Care Provider] - Time of Disposition: 09:50 Medical Decision Making - Medical Records Medical records reviewed: No: I reviewed the patient's medical records. - Daniel Inquiry Pt receiving controlled substance: No Vital Signs: 03/22/21 09:23 03/22/21 09:27 Temperature 97.8 F 97.8 F Temperature Source Oral Pulse Rate 86 Pulse Rate [Left] 86 Respiratory Rate 16 16 Blood Pressure 125/80 Blood Pressure [Right Arm] 125/80 Blood Pressure Mean [Right Arm] 95 02 Sat by Pulse Oximetry 98 - Lab Data Lab results reviewed: Yes: I reviewed the patient's lab results. Lab Results 03/22/21 09:25: Strep Scn Rapid Clinic Positive A [facility] [place] - General Stated complaint: sore throat,ruuny nose,congestion Time Seen by Provider: 03/22/21 09:47 Mode of Arrival: Ambulatory Source of Information: Patient Limitations: No Limitations Description of Symptoms (Recalled from Triage Doc. by RN): pt c/o a sore scratchy throat HEENT Symptoms (Recalled from RN notes): Yes (sore throat) Resp Symptoms (Recalled from RN notes): No Skin Symptoms (Recalled from RN notes): No MS Symptoms (Recalled from RN notes): No Functional Status (Recalled from RN notes): na - History of Present Illness Provider Complaint: He c/o sore throat for the past 2 days. He denies any fever or chills. He denies any exposure to covid-19. - Related Data Home Medications Medication Instructions Recorded Confirmed clomiphene citrate 50 mg tablet 50 mg PO tab 02/09/21 02/09/21 Previous Rx's Medication Instructions Recorded Amoxicillin/Potassium Clav 1 tab PO Q12H 10 Days #20 tab 03/22/21 [Augmentin 875-125 Tablet] Brompheniramine/Pseudoephed/Dm 5 ml PO Q6HP PRN #240 ml 03/22/21 [Bromfed Dm Cough Syrup] predniSONE [Deltasone 10mg tablet] 10 mg PO BID 3 Days #6 tab 03/22/21 Allergies Allergy/AdvReac Type Severity Reaction Status Date / Time STRAWBERRIES (FOOD) Allergy Unknown I-HIVES Uncoded 02/02/21 12:53 - Worker's Comp Is this a Worker's Comp case?: No [facility] History - Hepatitis A Screen Drug use history?: No High risk sexual behaviors?: No History of sexually transmitted infection?: No Currently employed?: No Childcare worker?: No Do you have indoor plumbing?: Yes Do you have electricity?: Yes Attestation statement:: This patient has been screened for Hepatitis A risk factors. I have reviewed the patient's past medical history: Yes Medical History: Reports:: Hyperlipidemia, Hypertension Denies:: Cancer, Diabetes Mellitus Type 1, Diabetes Mellitus Type 2, MRSA Other Medical History: Reports: Other Comment: myocarditis; cardiomyopathy Other Surgeries: Yes: No Previous Surgery, Other Amputation: No Fractures: Yes (right arm repaired) - Social History Cassandra
== END 2021-03-22 09:54 | disposition home or self-care (01) ==
PROVIDERS: Emergency Provider Nurse Practitioner Family; PCP Nurse Practitioner Family
DX: J02.0 Streptococcal pharyngitis (principal)
CPT/HCPCS: 87880; 99202; G0463

== ENCOUNTER → 2021-04-13 15:27 | Outpatient (CLI) | payer OTHER, SELFPAY ==
[2021-04-13 17:13] LABS: Thyroid Stimulating Hormone 0.15 uIU/mL (0.465-4.68)
[2021-04-15 12:47] LABS: Thyroid Peroxidase Antibodies 13 IU/mL (0-34)
[2021-04-16 15:10] LABS: Calcitonin <2.0 pg/mL (0.0-8.4)
[2021-04-16 17:10] LABS: Thyroid Stimulating Immunoglob <0.10 IU/L (0.00-0.55)
== END ==
PROVIDERS: Visit Provider Otolaryngology
DX: E01.0 Iodine-deficiency related diffuse (endemic) goiter (principal)
CPT/HCPCS: 36415; 82308; 84443; 84445; 86376

== ENCOUNTER → 2021-06-24 11:31 | Outpatient (CLI) | payer OTHER, SELFPAY | PROVIDERS: Visit Provider Nurse Practitioner | DX: Z20.822 Contact with and (suspected) exposure to COVID-19 (principal) | CPT/HCPCS: C9803; U0003; U0005 ==

== ENCOUNTER 2021-06-26 15:30 | Emergency (ER) | payer OTHER, SELFPAY ==
[2021-06-26 17:07] VITALS: BP 135/91; PULSE 94; RESP 18; TEMP 36.8; O2SAT 98; BMI 39.5
[2021-06-26 17:21] LABS: UTC Influenza A Antigen Negative (Negative); UTC Influenza B Antigen Negative (Negative)
[2021-06-26 17:22] LABS: UTC Strep Screen (Rapid) Negative (Negative)
--- NOTE | 2021-06-26 17:41 | HMH.EDUTC ---
[facility] [place] Disposition Clinical Impression: Pharyngitis Qualifiers: Pharyngitis/tonsillitis etiology: unspecified etiology Qualified Code(s): J02.9 - Acute pharyngitis, unspecified Disposition: Home, Self-Care Condition on Discharge: Good Instructions: DI for Strep Throat Additional Instructions: Drink plenty of fluids. Take tylenol or ibuprofen for pain or fever. Take the medications as directed. Follow up with your regular doctor. GO TO THE ER FOR ANY WORSENING SYMPTOMS Prescriptions: Brompheniramine/Pseudoephed/Dm [Bromfed Dm Cough Syrup] 5 ml PO Q6HP PRN #240 ml PRN Reason: Cough [facility] Ondansetron [Zofran 4mg ODT] 4 mg PO Q8HP PRN #20 tab PRN Reason: Nausea Transmission Status: Received by [facility] predniSONE [Prednisone 20mg Tab] 20 mg PO BID 4 Days #8 tab Transmission Status: Received by [facility] Azithromycin [Z-Juan 250mg Tab*] 250 mg PO UD DOSE PK #6 tab Transmission Status: Received by [facility] Referrals: Davon Concepcion APRN [Primary Care Provider] - Time of Disposition: 17:52 Medical Decision Making - Medical Records Medical records reviewed: No: I reviewed the patient's medical records. - Daniel Inquiry Pt receiving controlled substance: No Vital Signs: 06/26/21 17:07 06/26/21 17:55 Temperature 98.3 F 98.3 F Temperature Source Oral Pulse Rate 94 H Pulse Rate [Left] 94 H Respiratory Rate 18 18 Blood Pressure 135/91 H Blood Pressure [Right Arm] 135/91 H Blood Pressure Mean [Right Arm] 105 02 Sat by Pulse Oximetry 98 - Lab Data Lab results reviewed: Yes: I reviewed the patient's lab results. Lab Results 06/26/21 17:13: Strep Scn Rapid Clinic Negative 06/26/21 17:14: Influenza Type A Ag Negative, Influenza Type B Ag Negative Orders (Tests/Meds): ORDERS Category Date Time Status Strep Screen Confirmation Routine Micro 06/26/21 17:13 Received [facility] [place] HPI - General Stated complaint: sore throat,cough,DE LEON, Ears Time Seen by Provider: 06/26/21 17:41 Mode of Arrival: Ambulatory Source of Information: Patient Limitations: No Limitations Description of Symptoms (Recalled from Triage Doc. by RN): pt c/o a cough, dizziness, bilateral ear aches, sore throat and chest tightness with coughing. x2 days. pt tested negative for covid two days ago. HEENT Symptoms (Recalled from RN notes): Yes Resp Symptoms (Recalled from RN notes): Yes Skin Symptoms (Recalled from RN notes): No MS Symptoms (Recalled from RN notes): No Functional Status (Recalled from RN notes): wnl - History of Present Illness Provider Complaint: He states that for the past 3 days he has had sore throat, sinus congestion, chills, and he has felt bad. He states that he feels like he has strep throat. He has been vaccinated against covid-19. He had a negative covid-19 pcr test here 2 days ago. - Related Data Previous Rx's Medication Instructions Recorded Azithromycin [Z-Juan 250mg Tab*] 250 mg PO UD DOSE PK #6 tab 06/26/21 Brompheniramine/Pseudoephed/Dm 5 ml PO Q6HP PRN #240 ml 06/26/21 [Bromfed Dm Cough Syrup] Ondansetron [Zofran 4mg ODT] 4 mg PO Q8HP PRN #20 tab 06/26/21 predniSONE [Prednisone 20mg 20 mg PO BID 4 Days #8 tab 06/26/21 Tab] Allergies Allergy/AdvReac Type Severity Reaction Status Date / Time STRAWBERRIES (FOOD) Allergy Unknown I-HIVES Uncoded 02/02/21 12:53 - Worker's Comp Is this a Worker's Comp case?: No [facility] History - Hepatitis A Screen Drug use history?: No High risk sexual behaviors?: No History of sexually transmitted infection?: No Currently employed?: No Childcare worker?: No Do you have indoor plumbing?: Yes Do you have electricity?: Yes Attestation statement:: This patient has been screened for Hepatitis A risk factors. I have reviewed the patient's past medical history: Yes Medical History: Reports:: Hyperlipidemia, Hypertension Denie
[2021-06-26 17:55] VITALS: BP 135/91; PULSE 94; RESP 18; TEMP 36.8
== END 2021-06-26 18:00 | disposition home or self-care (01) ==
PROVIDERS: Emergency Provider Nurse Practitioner Family; PCP Nurse Practitioner Family
DX: J02.9 Acute pharyngitis, unspecified (principal); R42 Dizziness and giddiness; I10 Essential (primary) hypertension; E78.5 Hyperlipidemia, unspecified; F17.210 Nicotine dependence, cigarettes, uncomplicated
CPT/HCPCS: 87804; 87880; 99203; G0463

== ENCOUNTER → 2021-07-22 15:06 | Outpatient (CLI) | payer OTHER, SELFPAY ==
[2021-07-22 15:37] LABS: Basophils # 0.1 K/mm3 (0-0.2); Basophils % 1.1 % (0.1-2.0); Eosinophils # 0.3 K/mm3 (0.0-0.4); Eosinophils % 4.8 % (0.1-12.0); Hematocrit 46.1 % (42.0-52.0); Hemoglobin 15.4 g/dL (14.1-18.0); Lymphocytes # 1.7 K/mm3 (0.7-4.5); Lymphocytes % 29.5 % (10-50); Mean Corpuscular HGB Conc 33.4 g/dL (31.8-35.4); Mean Corpuscular Hemoglobin 28.2 pg (27.0-31.2); Mean Corpuscular Volume 84.4 fl (80-94); Mean Platelet Volume 7.6 fl (7.4-10.4); Monocytes # 0.4 K/mm3 (0.1-1.0); Monocytes % 7.1 % (1.7-9.3); Neutrophils # 3.4 K/mm3 (1.8-7.8); Neutrophils % 57.5 % (37.0-80.0); Platelet Count 344 K/mm3 (142-424); Red Blood Count 5.46 M/mm3 (4.60-6.20); Red Cell Distribution Width 13.9 % (11.5-17.5); White Blood Count 5.9 K/mm3 (4.8-10.8)
[2021-07-22 16:54] LABS: Alanine Aminotransferase 44 U/L (12-78); Albumin Level 4.7 g/dl (3.5-5.0); Albumin/Globulin Ratio 1.6 (1.1-1.8); Alkaline Phosphatase 89 U/L (38-126); Amylase 36 U/L (30-110); Anion Gap 13.2 mEq/L (5-15); Aspartate Amino Transferase 42 U/L (17-59); Bilirubin,Total 0.5 mg/dl (0.2-1.3); Blood Urea Nitrogen 15 mg/dl (9-20); Calcium 9.9 mg/dl (8.4-10.2); Carbon Dioxide 27 mmol/L (22.0-30.0); Chloride 104 mmol/L (98-107); Chol/HDL Ratio 5.3 (1-3.5); Cholesterol 154 mg/dl (140-200); Estimated Glomerular Filt Rate 103 ml/min (>60); GFR (African American) 124 ML/MIN (>60); Glucose 104 mg/dl (74-100); HDL Cholesterol 29 mg/dl (40-60); Lipase 45 U/L (23-300); Potassium 5.2 mmoL/L (3.5-5.1); Sodium 139 mmol/L (136-145); Total Protein,Serum 7.7 g/dl (6.3-8.2); Triglycerides 132 mg/dl (30-150); VLDL Cholesterol 26 mg/dL (0-40)
[2021-07-22 17:05] LABS: Direct LDL Cholesterol 114.96 mg/dL (100-129)
[2021-07-22 17:11] LABS: 25-OH Vitamin D, Total 26.7 ng/mL (30-100)
[2021-07-22 17:25] LABS: Thyroid Stimulating Hormone 0.33 uIU/mL (0.465-4.68)
== END ==
PROVIDERS: PCP Physician Assistant; Visit Provider Physician Assistant
DX: R10.11 Right upper quadrant pain (principal); K86.89 Other specified diseases of pancreas; E55.9 Vitamin D deficiency, unspecified
CPT/HCPCS: 80053; 80061; 82150; 82306; 83690; 84443; 85025

== ENCOUNTER → 2021-07-23 13:42 | Outpatient (CLI) | payer OTHER, SELFPAY ==
[2021-07-23 15:38] LABS: Free T4 (Free Thyroxine) 1.42 ng/dl (0.78-2.19)
[2021-07-25 10:12] LABS: Thyroid Peroxidase Antibodies <8 IU/mL (0-34); Triiodothyronine (T3) Free 4.1 pg/mL (2.0-4.4)
[2021-07-27 14:30] LABS: Thyroid Stimulating Immunoglob <0.10 IU/L (0.00-0.55)
== END ==
PROVIDERS: PCP Physician Assistant; Visit Provider Physician Assistant
DX: E06.1 Subacute thyroiditis (principal)
CPT/HCPCS: 36415; 84439; 84443; 84445; 84481; 86376

== ENCOUNTER → 2021-07-30 08:13 | Outpatient (CLI) | payer OTHER, SELFPAY ==
--- NOTE | 2021-07-30 08:13 | US_ITS ---
FINAL REPORT CLINICAL HISTORY: ruq PAIN FINDINGS: Sonographic images of the right upper quadrant were obtained. The pancreas is partially obscured. There is fatty infiltration of the liver. There is sludge in the gallbladder with no stones. There is no evidence of biliary ductal dilatation.The common duct measures 4mm. Limited images of the right kidney are unremarkable. IMPRESSION: 1. Fatty liver. 2. Sludge in the gallbladder. Reviewed, Interpreted and Dictated by Chandra Hernandez III, MD Transcribed by Madeline Langley Authenticated by Chandra Hernandez III, MD on 07/30/2021 09:54:09 AM [facility]
--- NOTE | 2021-07-30 08:13 | US_ITS ---
FINAL REPORT TECHNIQUE: Sonographic images of the thyroid were obtained. CLINICAL HISTORY: subacute thyroiditis-- low thyroid bloodwork levels FINDINGS: THYROID ULTRASOUND The right thyroid gland measures 4.2 x 1.2 x 1.8 cm. The parenchyma shows normal echogenicity. No dominant mass is seen. The left thyroid gland measures 4.1 x 1.1 x 2.0 cm. The parenchyma shows normal echogenicity. No dominant mass is seen. IMPRESSION: Unremarkable thyroid evaluation Reviewed, Interpreted and Dictated by Chandra Hernandez III, MD Transcribed by Madeline Langley Authenticated by Chandra Hernandez III, MD on 07/30/2021 09:54:10 AM [facility]
--- NOTE | 2021-07-30 08:55 | MR_ITS ---
FINAL REPORT CLINICAL HISTORY: RUQ Pain. RUQ ABDOMEN PAIN X4YRS. ABNORMAL CT 3-19-21. 29ML PROHANCE GIVEN. FINDINGS: Multiplanar MR imaging of the abdomen was performed without and with contrast. MRCP with 3D reformatted imaging was performed. There is motion on many of the images which decreases sensitivity of the exam. Images of the liver reveal no evidence of mass. There is no evidence of biliary ductal dilatation. The gallbladder has an unremarkable appearance. The spleen appears normal. There is an ovoid mass medial to the spleen measuring 2.3 x 2.2 cm. This has signal characteristics the same as the spleen on all sequences and is felt to represent a splenule as a variant. This presumed splenule abuts the tail of the pancreas. No pancreatic mass is identified. No abnormal contrast enhancement is seen on the postcontrast images. IMPRESSION: Presumed splenule abutting the tail of the pancreas with no pancreatic mass identified. Reviewed, Interpreted and Dictated by Chandra Hernandez III, MD Transcribed by Madeline Langley Authenticated by Chandra Hernandez III, MD on 07/30/2021 01:44:40 PM [facility]
== END ==
PROVIDERS: PCP Physician Assistant; Visit Provider Physician Assistant
DX: R10.11 Right upper quadrant pain (principal); K86.89 Other specified diseases of pancreas; R79.89 Other specified abnormal findings of blood chemistry
CPT/HCPCS: 74183; 76376; 76536; 76705; A9576

== ENCOUNTER 2021-08-03 10:17 | Emergency (ER) | payer OTHER, SELFPAY ==
[2021-08-03 10:25] VITALS: BP 142/88; PULSE 101; RESP 16; TEMP 36.6; O2SAT 94; BMI 43.9
[2021-08-03 10:34] LABS: UTC Strep Screen (Rapid) Positive (Negative)
--- NOTE | 2021-08-03 10:34 | HMH.EDUTC ---
[facility] [place] Disposition Clinical Impression: Strep throat Disposition: Home, Self-Care Condition on Discharge: Good Instructions: Strep Throat, DI for Strep Throat Additional Instructions: Make sure you drink plenty of fluids. Water or a sports electrolyte drinks (like gatorade) would be best. It is easy to get dehydrated if it hurts to swallow and/or you're running a fever. Take tylenol or ibuprofen for pain or fever. Take the medications as directed. Follow up with your regular doctor. GO TO THE ER FOR ANY WORSENING SYMPTOMS Throw your tooth brush away and get a new one. Prescriptions: Brompheniramine/Pseudoephed/Dm [Bromfed Dm Cough Syrup] 5 ml PO Q6HP PRN #240 ml PRN Reason: Cough Transmission Status: Received by [facility] Amoxicillin/Potassium Clav [Augmentin 875-125 Tablet] 1 tab PO Q12H 10 Days #20 tab Transmission Status: Received by [facility] methylPREDNISolone [Medrol] 4 mg PO DIRECTED 6 Days #21 packet Transmission Status: Received by [facility] Referrals: Davon Concepcion APRN [Primary Care Provider] - Time of Disposition: 10:49 Medical Decision Making - Medical Records Medical records reviewed: No: I reviewed the patient's medical records. - Daniel Inquiry Pt receiving controlled substance: No Vital Signs: 08/03/21 10:25 08/03/21 10:54 Temperature 97.9 F 97.9 F Temperature Source Oral Pulse Rate 101 H Pulse Rate [Right Brachial] 101 H Respiratory Rate 16 16 Blood Pressure 142/88 H Blood Pressure [Right Arm] 142/88 H Blood Pressure Mean [Right Arm] 106 Blood Pressure Source Automatic Cuff Blood Pressure Source [Right Arm] Automatic Cuff Blood Pressure Position Sitting Blood Pressure Position [Right Arm] Sitting 02 Sat by Pulse Oximetry 94 L Oxygen Delivery Method Room Air - Lab Data Lab results reviewed: Yes: I reviewed the patient's lab results. Lab Results 08/03/21 10:26: Strep Scn Rapid Clinic Positive A [facility] [place] HPI - General Stated complaint: sore throat, cough Time Seen by Provider: 08/03/21 10:34 Mode of Arrival: Ambulatory Source of Information: Patient Limitations: No Limitations Description of Symptoms (Recalled from Triage Doc. by RN): sore throat. cough HEENT Symptoms (Recalled from RN notes): Yes Resp Symptoms (Recalled from RN notes): No Skin Symptoms (Recalled from RN notes): No MS Symptoms (Recalled from RN notes): No Functional Status (Recalled from RN notes): n/a - History of Present Illness Provider Complaint: He c/o sore throat for the past 2 days. He has ran a low grade fever, had bilateral ear pain, and a dry cough. He denies any shortness of breath. He denies any known exposure to covid-19. - Related Data Previous Rx's Medication Instructions Recorded cholecalciferol (vitamin D3) 1,250 1,250 mcg PO WEEKLY #8 cap 07/23/21 mcg (50,000 unit) capsule cholecalciferol (vitamin D3) 25 25 mcg PO DAILY #90 cap 07/23/21 mcg (1,000 unit) capsule Amoxicillin/Potassium Clav 1 tab PO Q12H 10 Days #20 tab 08/03/21 [Augmentin 875-125 Tablet] Brompheniramine/Pseudoephed/Dm 5 ml PO Q6HP PRN #240 ml 08/03/21 [Bromfed Dm Cough Syrup] methylPREDNISolone [Medrol] 4 mg PO DIRECTED 6 Days #21 08/03/21 packet Allergies Allergy/AdvReac Type Severity Reaction Status Date / Time STRAWBERRIES (FOOD) Allergy Unknown I-HIVES Uncoded 07/22/21 14:20 - Worker's Comp Is this a Worker's Comp case?: No Is this an H Worker's Comp?: No Is this a [place] Worker's Comp?: No [facility] History - Hepatitis A Screen Drug use history?: No High risk sexual behaviors?: No History of sexually transmitted infection?: No Currently employed?: No Childcare worker?: No Do you have indoor plumbing?: Yes Do you have electricity?: Yes Attestation statement:: This patient has been screened for Hepatitis A risk factors. I have reviewed the patient's past medical history: Yes Medical History: Reports:: Hy
[2021-08-03 10:54] VITALS: BP 142/88; PULSE 101; RESP 16; TEMP 36.6
== END 2021-08-03 10:56 | disposition home or self-care (01) ==
PROVIDERS: Emergency Provider Nurse Practitioner Family; PCP Nurse Practitioner Family
DX: J02.0 Streptococcal pharyngitis (principal); E78.5 Hyperlipidemia, unspecified; I10 Essential (primary) hypertension
CPT/HCPCS: 87880; 99202; G0463

== ENCOUNTER → 2021-08-12 09:36 | Outpatient (CLI) | payer OTHER, SELFPAY ==
--- NOTE | 2021-08-12 09:43 | NM_ITS ---
FINAL REPORT CLINICAL HISTORY: GALLBLADDER SLUDGE, 10:50am 8.07mci tc choletec 12:00 ensure sb=10min no pian with ensure FINDINGS: Sequential anterior projection images of the abdomen were obtained after the intravenous injection of 8.207 mCi technetium 99m Choletec. There is normal uptake of radiotracer by the liver. The bile ducts and bowel are visualized by 10 minutes. Gallbladder activity is seen by 15 minutes. After 1 hour, Ensure was ingested for calculation of gallbladder ejection fraction. The gallbladder ejection fraction is 34 %, which is borderline. IMPRESSION: No evidence of cystic duct or bile duct obstruction. Borderline gallbladder ejection fraction of 34 %. Reviewed, Interpreted and Dictated by Chandra Hernandez III, MD Transcribed by Brigido Fowler Authenticated by Chandra Hernandez III, MD on 08/12/2021 03:03:29 PM [facility]
== END ==
PROVIDERS: PCP Nurse Practitioner Family; Visit Provider Physician Assistant
DX: K82.9 Disease of gallbladder, unspecified (principal)
CPT/HCPCS: 78226; A9537

== ENCOUNTER 2021-09-28 12:50 | Emergency (ER) | payer OTHER, SELFPAY ==
[2021-09-28 13:43] VITALS: BP 138/91; PULSE 91; RESP 19; TEMP 36.6; O2SAT 98; BMI 42.7
[2021-09-28 13:57] LABS: Strep Scrn Group A (Rapid) Positive (Negative)
--- NOTE | 2021-09-28 14:02 | HMH.EDUTC ---
[facility] [place] Disposition Clinical Impression: Strep throat Disposition: Home, Self-Care Condition on Discharge: Good Instructions: Strep Throat, DI for Strep Throat Additional Instructions: Drink plenty of fluids. Take tylenol or ibuprofen for pain or fever. Take the medications as directed. Follow up with your regular doctor. GO TO THE ER FOR ANY WORSENING SYMPTOMS Throw your tooth brush away and get a new one. Prescriptions: Brompheniramine/Pseudoephed/Dm [Bromfed Dm Cough Syrup] 5 ml PO Q6HP PRN #240 ml PRN Reason: Cough Transmission Status: Received by [facility] Amoxicillin/Potassium Clav [Amox-Clav 875-125 mg Tablet] 1 tab PO BID #20 tab Transmission Status: Received by [facility] methylPREDNISolone [Medrol] 4 mg PO DIRECTED 6 Days #21 packet Transmission Status: Received by [facility] Referrals: Davon Concepcion APRN [Primary Care Provider] - Time of Disposition: 14:21 Medical Decision Making - Medical Records Medical records reviewed: No: I reviewed the patient's medical records. - Daniel Inquiry Pt receiving controlled substance: No Vital Signs: 09/28/21 13:43 09/28/21 14:34 Temperature 97.8 F 97.8 F Temperature Source Oral Pulse Rate 91 H Pulse Rate [Left] 91 H Respiratory Rate 19 19 Blood Pressure 138/91 H Blood Pressure [Right Arm] 138/91 H Blood Pressure Mean [Right Arm] 106 02 Sat by Pulse Oximetry 98 - Lab Data Lab results reviewed: Yes: I reviewed the patient's lab results. Lab Results 09/28/21 13:36: Group A Strep Rapid Positive A [facility] [place] HPI - General Stated complaint: sore throat, ear pain, cough, congestion Time Seen by Provider: 09/28/21 14:20 Mode of Arrival: Ambulatory Source of Information: Patient Limitations: No Limitations Description of Symptoms (Recalled from Triage Doc. by RN): pt c/o a cough, sore throat and ears aching x2 wks. HEENT Symptoms (Recalled from RN notes): Yes Resp Symptoms (Recalled from RN notes): Yes Skin Symptoms (Recalled from RN notes): No MS Symptoms (Recalled from RN notes): No Functional Status (Recalled from RN notes): wnl - History of Present Illness Provider Complaint: He c/o sore throat, fever, and malaise for the past 3 days. - Related Data Previous Rx's Medication Instructions Recorded Amoxicillin/Potassium Clav 1 tab PO BID #20 tab 09/28/21 [Amox-Clav 875-125 mg Tablet] Brompheniramine/Pseudoephed/Dm 5 ml PO Q6HP PRN #240 ml 09/28/21 [Bromfed Dm Cough Syrup] methylPREDNISolone [Medrol] 4 mg PO DIRECTED 6 Days #21 09/28/21 packet Allergies Allergy/AdvReac Type Severity Reaction Status Date / Time STRAWBERRIES (FOOD) Allergy Unknown I-HIVES Uncoded 08/17/21 09:48 - Worker's Comp Is this a Worker's Comp case?: No [facility] History - Hepatitis A Screen Drug use history?: No High risk sexual behaviors?: No History of sexually transmitted infection?: No Currently employed?: No Childcare worker?: No Do you have indoor plumbing?: Yes Do you have electricity?: Yes Attestation statement:: This patient has been screened for Hepatitis A risk factors. I have reviewed the patient's past medical history: Yes Medical History: Reports:: Hyperlipidemia, Hypertension Denies:: Cancer, Diabetes Mellitus Type 1, Diabetes Mellitus Type 2, MRSA Other Medical History: Reports: Other Comment: myocarditis; cardiomyopathy Other Surgeries: Yes: No Previous Surgery, Other Amputation: No Fractures: Yes (right arm repaired) - Social History Smoking Status: Current every day smoker Tobacco Type: smokeless tobacco Alcohol Intake: never Alcohol Intake Frequency:: holidays/special occasions only Substance Use Type: denies use Occupational Status: other Housing: house Household Members: family Family Hx:: Hypertension Comment: per prior consultation note with AARON Garcia, with cardiology, dad had hx of PM placement when in his 50's. ROS Obtained: Yes All sys
[2021-09-28 14:34] VITALS: BP 138/91; PULSE 91; RESP 19; TEMP 36.6
== END 2021-09-28 14:35 | disposition home or self-care (01) ==
PROVIDERS: Emergency Provider Nurse Practitioner Family; PCP Nurse Practitioner Family
DX: J02.0 Streptococcal pharyngitis (principal); B95.0 Streptococcus, group A, as the cause of diseases classified elsewhere; R07.89 Other chest pain; H92.09 Otalgia, unspecified ear; I10 Essential (primary) hypertension; I51.4 Myocarditis, unspecified; I42.9 Cardiomyopathy, unspecified; K59.00 Constipation, unspecified; E78.5 Hyperlipidemia, unspecified; E55.9 Vitamin D deficiency, unspecified; E29.1 Testicular hypofunction; F17.210 Nicotine dependence, cigarettes, uncomplicated; Z79.52 Long term (current) use of systemic steroids; Z91.018 Allergy to other foods; Z95.0 Presence of cardiac pacemaker; Z82.49 Family history of ischemic heart disease and other diseases of the circulatory system
CPT/HCPCS: 87430; 99213; G0463

== ENCOUNTER 2021-10-23 08:58 | Emergency (ER) | payer OTHER, SELFPAY ==
[2021-10-23 09:00] VITALS: BP 140/87; PULSE 97; RESP 19; TEMP 36.9; O2SAT 99; BMI 43.7
--- NOTE | 2021-10-23 09:31 | HMH.EDUTC ---
[facility] [place] Disposition Clinical Impression: Sinusitis Qualifiers: Sinusitis location: unspecified location Chronicity: acute Recurrence: non-recurrent Qualified Code(s): J01.90 - Acute sinusitis, unspecified Otitis media Qualifiers: Otitis media type: suppurative Chronicity: acute Laterality: bilateral Recurrence: non-recurrent Spontaneous tympanic membrane rupture: without spontaneous rupture Qualified Code(s): H66.003 - Acute suppurative otitis media without spontaneous rupture of ear drum, bilateral Disposition: Home, Self-Care Condition on Discharge: Good Instructions: Middle Ear Infection, DI for Sinusitis Additional Instructions: Drink plenty of fluids. Take tylenol or ibuprofen for pain or fever. Take the medications as directed. Follow up with your regular doctor. GO TO THE ER FOR ANY WORSENING SYMPTOMS Prescriptions: Brompheniramine/Pseudoephed/Dm [Bromfed Dm Cough Syrup] 5 ml PO Q6HP PRN #240 ml PRN Reason: Cough Transmission Status: Received by [facility] methylPREDNISolone [Medrol] 4 mg PO DIRECTED 6 Days #21 packet Transmission Status: Received by [facility] guaiFENesin [Mucinex 600mg tablet] 1 - 2 tab PO BIDP PRN #30 tab PRN Reason: Congestion Transmission Status: Received by [facility] Azithromycin [Z-Juan 250mg Tab*] 250 mg PO UD DOSE PK #6 tab Transmission Status: Received by [facility] Referrals: Davon Concepcion APRN [Primary Care Provider] - Time of Disposition: 09:53 Medical Decision Making - Medical Records Medical records reviewed: No: I reviewed the patient's medical records. - Daniel Inquiry Pt receiving controlled substance: No Vital Signs: 10/23/21 09:00 10/23/21 09:56 Temperature 98.4 F 98.4 F Temperature Source Oral Pulse Rate 97 H Pulse Rate [Right Brachial] 97 H Respiratory Rate 19 19 Blood Pressure 140/87 Blood Pressure [Right Arm] 140/87 Blood Pressure Mean [Right Arm] 104 Blood Pressure Source [Right Arm] Automatic Cuff Blood Pressure Position [Right Arm] Sitting 02 Sat by Pulse Oximetry 99 Oxygen Delivery Method Room Air - Lab Data Lab results reviewed: Yes: I reviewed the patient's lab results. Lab Results 10/23/21 09:10: Group A Strep Rapid Negative Orders (Tests/Meds): ORDERS Category Date Time Status Strep Screen Confirmation Stat Micro 10/23/21 09:10 Received [facility] [place] HPI - General Stated complaint: sore throat,cough,runny nose Time Seen by Provider: 10/23/21 09:33 - History of Present Illness Provider Complaint: He c/o sinus congestion, chest congston, cough, low grade fever and feeling bad for the past 4days. - Related Data Previous Rx's Medication Instructions Recorded Azithromycin [Z-Juan 250mg Tab*] 250 mg PO UD DOSE PK #6 tab 10/23/21 Brompheniramine/Pseudoephed/Dm 5 ml PO Q6HP PRN #240 ml 10/23/21 [Bromfed Dm Cough Syrup] guaiFENesin [Mucinex 600mg tablet] 1 - 2 tab PO BIDP PRN #30 tab 10/23/21 methylPREDNISolone [Medrol] 4 mg PO DIRECTED 6 Days #21 10/23/21 packet Allergies Allergy/AdvReac Type Severity Reaction Status Date / Time strawberry Allergy Verified 10/23/21 09:32 [facility] History - Hepatitis A Screen Attestation statement:: This patient has been screened for Hepatitis A risk factors. I have reviewed the patient's past medical history: Yes Medical History: Reports:: Hyperlipidemia, Hypertension Denies:: Cancer, Diabetes Mellitus Type 1, Diabetes Mellitus Type 2, MRSA Other Medical History: Reports: Other Comment: myocarditis; cardiomyopathy Other Surgeries: Yes: No Previous Surgery, Other Amputation: No Fractures: Yes (right arm repaired) - Social History Smoking Status: Current every day smoker Tobacco Type: smokeless tobacco Alcohol Intake: never Alcohol Intake Frequency:: holidays/special occasions only Substance Use Type: denies use Occupational Status: other Housing: house Household Members: family Family Hx:
[2021-10-23 09:37] LABS: Strep Scrn Group A (Rapid) Negative (Negative)
[2021-10-23 09:56] VITALS: BP 140/87; PULSE 97; RESP 19; TEMP 36.9; O2SAT 99
== END 2021-10-23 09:58 | disposition home or self-care (01) ==
PROVIDERS: Emergency Provider Nurse Practitioner Family; PCP Nurse Practitioner Family
DX: J01.90 Acute sinusitis, unspecified (principal); H66.003 Acute suppurative otitis media without spontaneous rupture of ear drum, bilateral
CPT/HCPCS: 87430; 99212; G0463

== ENCOUNTER 2022-02-06 12:18 | Emergency (ER) | payer OTHER, SELFPAY ==
--- NOTE | 2022-02-06 12:34 | EXP.UTC ---
Discharge Plan Disposition Patient Disposition: Home, Self-Care Condition: Good Prescriptions Prescriptions: New prednisone [prednisone] 20 mg tablet 20 mg PO BID 5 Days Qty: 10 0RF pseudoephedrine HCl [12 Hour Decongestant] 120 mg Tablet Extended Release 120 mg PO Q12H Qty: 20 0RF amoxicillin-pot clavulanate 875-125 mg Tablet 1 tab PO Q12H Qty: 20 0RF No Action azithromycin 250 MG tablet 250 mg PO UD DOSE PK Qty: 6 0RF Rx Instructions: Take two (2) tablets today, then one (1) tablet days #2 thru #5 methylprednisolone 4 MG tablets,dose pack 4 mg PO DIRECTED 6 Days Qty: 21 0RF ycmuxxkitatlhhx-vnxprnmgq-PG 118 ML syrup 5 ml PO Q6HP PRN (Reason: Cough) Qty: 240 0RF guaifenesin 600 MG tablet extended release 12hr 1 - 2 tab PO BIDP PRN (Reason: Congestion) Qty: 30 0RF Referrals Follow up/Referrals: Fidel Wilks MD [Primary Care Provider] - See instructions Activity Restrictions/Add. Instructions Additional Instructions/Restrictions: Take all medicine as prescribed until gone. Follow up if not improving Clinical Impressions Clinical Impression: Bilateral otitis media Instructions Patient Instructions: DI for Otitis Media (Middle Ear Infection)-Child Discharge ED Provider: Karyn Rivera [facility] [place] General Stated complaint: sore throat stomach pain Time Seen by Provider: 02/06/22 14:26 History of Present Illness Provider Complaint: Bilateral ear pain, sore throat, abdominal pain X 5 days. No fever. No vomiting or diarrhea. Onset (ago): day(s) (5) Relieving factors: none Exacerbating factors: none Associated symptoms: denies other symptoms Treatments prior to arrival: none Related Data Previous Rx's Medication Instructions Recorded azithromycin 250 mg tablet 250 mg PO UD DOSE PK #6 tabs 10/23/21 ykchejfcpbuavth-yyuixihqsfuuuqt-AC 5 ml PO Q6HP PRN Cough #240 mL 10/23/21 2 mg-30 mg-10 mg/5 mL oral syrup guaifenesin 600 mg tablet, 1 - 2 tab PO BIDP PRN Congestion 10/23/21 extended release 12 hr #30 tabs methylprednisolone 4 mg tablets in 4 mg PO DIRECTED 6 days #21 10/23/21 a dose pack packets amoxicillin 875 mg-potassium 1 tab PO Q12H #20 tabs 02/06/22 clavulanate 125 mg tablet prednisone 20 mg tablet 20 mg PO BID 5 days #10 tabs 02/06/22 pseudoephedrine HCl 120 mg 120 mg PO Q12H #20 tabs 02/06/22 tablet,extended release (12 Hour Decongestant ER) Allergies Allergy/AdvReac Type Severity Reaction Status Date / Time strawberry Allergy Verified 02/06/22 14:20 [facility] Medical History (Updated 02/06/22 @ 14:35 by AARON Clark) Atypical chest pain Constipation Dyspnea Flank pain Gastroesophageal reflux disease Obesity due to excess calories with serious comorbidity Obesity, morbid, BMI 40.0-49.9 Testosterone deficiency (~09/25/17) Vitamin D deficiency (~09/25/17) Social History Smoking Status: Current every day smoker tobacco type: smokeless tobacco alcohol intake: never counseling provided: none substance use type: denies use current occupational status: other household members: family housing: house ROS Obtained: Yes All systems reviewed & no additional complaints except as documented Constitutional Constitutional: Denies fever(s) ENT Ears, Nose, Mouth, and Throat: Reports otalgia and Reports sore throat Gastrointestinal Gastrointestingal: Reports abdominal pain Physical Exam General General appearance: alert and in no apparent distress Head Head exam: atraumatic, normocephalic and normal inspection Eye Eye exam: Present normal appearance, PERRL and EOMI ENT ENT exam: Present normal exam, normal oropharynx, mucous membranes moist and normal external ear exam Expanded ENT Exam TM/Canal exam: Bilateral TM: erythema and bulging Throat exam: Present other (PND) Neck Neck exam: Present normal inspection, full ROM and trachea midli
[2022-02-06 14:18] VITALS: BP 136/86; PULSE 82; RESP 15; TEMP 36.8; O2SAT 97; BMI 42.2
[2022-02-06 14:22] LABS: UTC Strep Screen (Rapid) Negative (Negative)
[2022-02-06 14:40] VITALS: BP 136/86; PULSE 82; RESP 15; TEMP 36.8
== END 2022-02-06 14:44 | disposition home or self-care (01) ==
PROVIDERS: Emergency Provider Physician Assistant; PCP Emergency Medicine
DX: H66.93 Otitis media, unspecified, bilateral (principal); J02.9 Acute pharyngitis, unspecified; R10.9 Unspecified abdominal pain
CPT/HCPCS: 87880; 99212; G0463

== ENCOUNTER 2022-04-17 17:42 | Emergency (ER) | payer OTHER, SELFPAY ==
[2022-04-17 18:51] VITALS: BP 142/88; PULSE 76; RESP 19; TEMP 36.8; O2SAT 99; BMI 42.0
--- NOTE | 2022-04-17 18:51 | EXP.UTC ---
Discharge Plan Disposition Patient Disposition: Home, Self-Care Condition: Good Prescriptions Prescriptions: New amoxicillin [amoxicillin] 500 mg tablet 500 mg PO TID 10 Days Qty: 30 0RF methylprednisolone 4 mg Tablets,Dose Pack 4 mg PO DIRECTED Qty: 21 0RF imscmirhivjksdh-zmgzizugm-EI [Bromfed DM] 2-30-10 mg/5 mL Syrup 5 ml PO Q6H PRN (Reason: Cough) Qty: 240 0RF No Action sumatriptan succinate [Imitrex] 100 mg tablet See Rx Instructions PO .COMPLEX Qty: 9 10RF Rx Instructions: take 1 tab at onset of headache; if no relief, may repeat 1 tab after at least 2 hrs; max = 2 tabs/24 hrs PO fluoxetine [Prozac] 20 mg capsule 20 mg PO DAILY Qty: 90 3RF Referrals Follow up/Referrals: Davon Concepcion APRN [Primary Care Provider] - See instructions Activity Restrictions/Add. Instructions Additional Instructions/Restrictions: Drink plenty of fluids. Take tylenol or ibuprofen for pain or fever. Take the medications as directed. Follow up with your regular doctor. GO TO THE ER FOR ANY WORSENING SYMPTOMS Clinical Impressions Clinical Impression: Pharyngitis, Otitis media Instructions Patient Instructions: Middle Ear Infection Discharge ED Provider: Keny Edge [facility] General Stated complaint: cough,ears Time Seen by Provider: 04/17/22 18:58 History of Present Illness Provider Complaint: He states that for the past 2 days he has had worsening bilateral ear pain and sore throat. He denies any fever or chills. He refuses testing for flu, strep or covid-19. Related Data Previous Rx's Medication Instructions Recorded fluoxetine 20 mg capsule (Prozac) 20 mg PO DAILY #90 caps 03/05/22 sumatriptan succinate 100 mg See Rx Instructions PO .COMPLEX #9 03/05/22 tablet (Imitrex) tabs amoxicillin 500 mg tablet 500 mg PO TID 10 days #30 tabs 04/17/22 flaignagnsjeeez-kztvbkosnfrjtja-EO 5 ml PO Q6H PRN Cough #240 mL 04/17/22 2 mg-30 mg-10 mg/5 mL oral syrup (Bromfed DM) methylprednisolone 4 mg tablets in 4 mg PO DIRECTED #21 tabs 04/17/22 a dose pack Allergies Allergy/AdvReac Type Severity Reaction Status Date / Time strawberry Allergy Verified 04/17/22 18:54 PFSH PFSH Medical History Atypical chest pain Constipation Dyspnea Flank pain Gastroesophageal reflux disease Obesity due to excess calories with serious comorbidity Obesity, morbid, BMI 40.0-49.9 Testosterone deficiency (~09/25/17) Vitamin D deficiency (~09/25/17) Social History Smoking Status: Current every day smoker tobacco type: smokeless tobacco alcohol intake: never counseling provided: none substance use type: denies use current occupational status: other Travel in the last 8 weeks: None household members: family housing: house ROS Obtained: Yes All systems reviewed & no additional complaints except as documented Constitutional Constitutional: Reports chills and Reports fever(s) Eyes Eyes: Denies eye discharge ENT Ears, Nose, Mouth, and Throat: Reports as per HPI Cardiovascular Cardiovascular: Denies chest pain Respiratory Respiratory: Denies chest congestion and Reports cough Gastrointestinal Gastrointestingal: Reports nausea; Denies abdominal pain, constipation, cramping, diarrhea or vomiting Musculoskeletal Musculoskeletal: Denies arthralgias Integumentary/Breasts Skin/Breast: Denies rash Neurologic Neurologic: Denies paresthesias Physical Exam General General appearance: alert and in no apparent distress Head Head exam: atraumatic, normocephalic and normal inspection Eye Eye exam: Present normal appearance, PERRL and EOMI ENT ENT exam: Present mucous membranes moist and normal external ear exam Expanded ENT Exam TM/Canal exam: Bilateral TM: erythema and bulging Nose exam: Absent sinus tenderness Mouth exam: Present normal external inspection; Absent
[2022-04-17 19:20] VITALS: BP 142/88; PULSE 76; RESP 19; TEMP 36.8
== END 2022-04-17 19:21 | disposition home or self-care (01) ==
PROVIDERS: Emergency Provider Nurse Practitioner Family; PCP Nurse Practitioner Family
DX: J02.9 Acute pharyngitis, unspecified (principal); H66.90 Otitis media, unspecified, unspecified ear
CPT/HCPCS: 99212; G0463

== ENCOUNTER → 2022-07-18 23:01 | Outpatient (CLI) | payer OTHER, SELFPAY ==
[2022-07-18 23:12] LABS: Coronavirus 19, PCR Not Detected (NotDetected); Influenza A, PCR Not Detected (NotDetected); Influenza B, PCR Not Detected (NotDetected)
== END ==
PROVIDERS: PCP Emergency Medicine; Visit Provider Emergency Medicine
DX: Z20.822 Contact with and (suspected) exposure to COVID-19 (principal)
CPT/HCPCS: C9803; U0003; U0005

== ENCOUNTER → 2023-01-13 18:36 | Outpatient (CLI) | payer OTHER, SELFPAY | PROVIDERS: PCP Student in an Organized Health Care Education/Training Program; Visit Provider Student in an Organized Health Care Education/Training Program | DX: J02.9 Acute pharyngitis, unspecified (principal) ==

== ENCOUNTER → 2023-01-25 15:37 | Outpatient (CLI) | payer OTHER, SELFPAY ==
[2023-01-25 16:19] LABS: Basophils # 0.1 K/mm3 (0-0.2); Basophils % 0.4 % (0.1-2.0); Eosinophils # 0.4 K/mm3 (0.0-0.4); Eosinophils % 3.5 % (0.1-12.0); Hematocrit 47.3 % (42.0-52.0); Hemoglobin 15.3 g/dL (14.1-18.0); Lymphocytes # 2.4 K/mm3 (0.7-4.5); Mean Corpuscular HGB Conc 32.3 g/dL (31.8-35.4); Mean Corpuscular Hemoglobin 27.5 pg (27.0-31.2); Mean Corpuscular Volume 85.2 fl (80-94); Mean Platelet Volume 7.7 fl (7.4-10.4); Monocytes # 0.7 K/mm3 (0.1-1.0); Monocytes % 5.5 % (1.7-9.3); Neutrophils # 8.8 K/mm3 (1.8-7.8); Neutrophils % 71.6 % (37.0-80.0); Platelet Count 335 K/mm3 (142-424); Red Blood Count 5.55 M/mm3 (4.60-6.20); Red Cell Distribution Width 13.8 % (11.5-17.5); White Blood Count 12.3 K/mm3 (4.8-10.8)
[2023-01-25 16:51] LABS: Alanine Aminotransferase 26 U/L (12-78); Albumin Level 4.5 g/dl (3.5-5.0); Albumin/Globulin Ratio 1.3 (1.1-1.8); Alkaline Phosphatase 100 U/L (38-126); Anion Gap 13.9 mEq/L (5-15); Aspartate Amino Transferase 26 U/L (17-59); Bilirubin,Total 0.2 mg/dl (0.2-1.3); Blood Urea Nitrogen 17 mg/dl (9-20); Calcium 9.2 mg/dl (8.4-10.2); Carbon Dioxide 27 mmol/L (22.0-30.0); Chloride 106 mmol/L (98-107); Cholesterol 167 mg/dl (140-200); Estimated Glomerular Filt Rate 102 ml/min (>60); GFR (African American) 123 ML/MIN (>60); Globulin 3.5 g/dL (1.3-3.2); Glucose 94 mg/dl (74-100); HDL Cholesterol 28 mg/dl (40-60); Potassium 4.9 mmoL/L (3.5-5.1); Sodium 142 mmol/L (136-145); Triglycerides 266 mg/dl (30-150); VLDL Cholesterol 53 mg/dL (0-40)
[2023-01-25 17:02] LABS: Direct LDL Cholesterol 103.15 mg/dL (100-129)
[2023-01-25 17:06] LABS: 25-OH Vitamin D, Total 17.8 ng/mL (30-100)
[2023-01-25 17:22] LABS: Thyroid Stimulating Hormone 0.29 uIU/mL (0.465-4.68)
== END ==
PROVIDERS: PCP Physician Assistant; Visit Provider Physician Assistant
DX: I10 Essential (primary) hypertension (principal); E55.9 Vitamin D deficiency, unspecified; Z79.899 Other long term (current) drug therapy
CPT/HCPCS: 36415; 80053; 80061; 82306; 84443; 85025

== ENCOUNTER 2023-01-27 21:09 | Emergency (ER) | payer OTHER, SELFPAY ==
[2023-01-27 21:10] VITALS: BP 135/80; PULSE 99; RESP 21; TEMP 36.9; O2SAT 97; BMI 43.8
[2023-01-27 21:31] VITALS: BP 127/83; PULSE 76; RESP 19; O2SAT 96
--- NOTE | 2023-01-27 21:59 | PC.NURSE ---
pt. assisted to bathroom, family at bedside, no other needs at this time
--- NOTE | 2023-01-27 22:43 | HMH.EDGENADL ---
Discharge Plan Disposition Patient Disposition: Home, Self-Care Condition: Good Prescriptions Prescriptions: No Action sumatriptan succinate [Imitrex] 100 mg tablet See Rx Instructions PO .COMPLEX Qty: 9 10RF Rx Instructions: take 1 tab at onset of headache; if no relief, may repeat 1 tab after at least 2 hrs; max = 2 tabs/24 hrs PO pantoprazole 40 mg tablet,delayed release (DR/EC) 40 mg PO DAILY Qty: 30 2RF Referrals Follow up/Referrals: Karyn Rivera PA [Primary Care Provider] - See instructions Activity Restrictions/Add. Instructions Additional Instructions/Restrictions: Please follow-up with your primary care provider. Please return to the emergency department if you develop any new or worsening symptoms or become concerned for your health. Clinical Impressions Clinical Impression: Encounter for medical assessment, Medication side effects present Discharge ED Provider: Pilo Bush General Adult HPI General Chief complaint: Allergic Reaction Stated complaint: Possible reaction to medication Time Seen by Provider: 01/27/23 22:15 Mode of Arrival: Ambulatory Source of Information: Patient Limitations: No Limitations Description of Symptoms (Recalled from ER Triage Doc. by RN): Pt ambulatory to ED via POV. States he saw PCP Karyn on 01/26/23 for migraines. Prescribed 100 mg of sumatriptan for issue. Pt took first dose of medication at 2000 this evening and around 2100 patient became diaphoretic, and states my chest and head feel funny. My maigraine is still there. No SOA at present, blurry vision, photosensitivity or uniateral weakness. History of Present Illness HPI narrative: 27-year-old male, history of migraines, presents with reaction to medication. He reports that he took his first dose of sumatriptan this evening and had several symptoms including feeling funny, dizzy, chest discomfort. On my evaluation patient reports that his symptoms have totally resolved. Reports no other symptoms, reports no significant cardiac history. Related Data Previous Rx's Medication Instructions Recorded pantoprazole 40 mg tablet,delayed 40 mg PO DAILY #30 tabs 01/25/23 release sumatriptan succinate 100 mg See Rx Instructions PO .COMPLEX #9 01/25/23 tablet (Imitrex) tabs Allergies Allergy/AdvReac Type Severity Reaction Status Date / Time strawberry Allergy Verified 01/25/23 15:03 [facility] Disclaimer: The information contained in this section may have been updated after the patient was seen, as this information can be updated by other users. Medical History Atypical chest pain Constipation Dyspnea Flank pain Gastroesophageal reflux disease Obesity due to excess calories with serious comorbidity Obesity, morbid, BMI 40.0-49.9 Testosterone deficiency (~09/25/17) Vitamin D deficiency (~09/25/17) Social History Smoking Status: Unknown if ever smoked alcohol intake: never counseling provided: none substance use type: denies use current occupational status: other Travel in the last 8 weeks: None household members: family housing: house ROS Obtained: Yes All systems reviewed & no additional complaints except as documented Physical Exam General General appearance: alert and in no apparent distress Head Head exam: atraumatic and normocephalic Eye Eye exam: Present normal appearance, PERRL and EOMI ENT ENT exam: Present normal oropharynx and normal external ear exam Neck Neck exam: Present normal inspection and full ROM Chest Chest inspection: Present normal inspection and symmetric chest wall rise; Absent tenderness Respiratory Respiratory exam: Present normal lung sounds bilaterally; Absent respiratory distress Cardiovascular Cardiovascular exam: Present regular rate and normal rhythm Abdominal Exam Abdominal exam: Present soft; Absent distention, tenderne
[2023-01-27 22:44] VITALS: BP 126/67; PULSE 87; RESP 18; TEMP 37.1; O2SAT 97
== END 2023-01-27 22:56 | disposition home or self-care (01) ==
PROVIDERS: Emergency Provider Emergency Medicine; PCP Physician Assistant
DX: R07.89 Other chest pain (principal); R42 Dizziness and giddiness; R61 Generalized hyperhidrosis; T50.995A Adverse effect of other drugs, medicaments and biological substances, initial encounter
CPT/HCPCS: 99282

== ENCOUNTER → 2023-01-28 21:16 | Outpatient (CLI) | payer OTHER, SELFPAY ==
[2023-01-28 22:02] LABS: Coronavirus 19, PCR Not Detected (NotDetected); Influenza A, PCR Not Detected (NotDetected); Influenza B, PCR Not Detected (NotDetected)
== END ==
PROVIDERS: PCP Emergency Medicine; Visit Provider Emergency Medicine
DX: Z20.822 Contact with and (suspected) exposure to COVID-19 (principal)
CPT/HCPCS: 87635; 87636

== ENCOUNTER 2023-02-14 10:32 | Emergency (ER) | payer OTHER, SELFPAY ==
--- NOTE | 2023-02-14 10:38 | EXP.UTC ---
Discharge Plan Disposition Patient Disposition: Home, Self-Care Condition: Good Prescriptions Prescriptions: New amoxicillin [amoxicillin] 875 mg tablet 875 mg PO Q12H Qty: 20 0RF [id number] [Bromfed DM] 2-30-10 mg/5 mL Syrup 5 ml PO Q6H PRN (Reason: Cough) Qty: 240 0RF Referrals Follow up/Referrals: Karyn Rivera PA [Primary Care Provider] - See instructions Activity Restrictions/Add. Instructions Additional Instructions/Restrictions: Drink plenty of fluids. Take tylenol or ibuprofen for pain or fever. Take the medications as directed. Follow up with your regular doctor. GO TO THE ER FOR ANY WORSENING SYMPTOMS Throw your tooth brush away and get a new one. Clinical Impressions Clinical Impression: Strep throat Instructions Patient Instructions: Strep Throat, DI for Strep Throat Discharge ED Provider: Keny Edge [facility] [place] HPI General Stated complaint: left ear pain, sore throat, congestion Time Seen by Provider: 02/14/23 10:38 History of Present Illness Provider Complaint: He states that he has had a very sore throat for the past 1 day. Related Data Previous Rx's Medication Instructions Recorded amoxicillin 875 mg tablet 875 mg PO Q12H #20 tabs 02/14/23 [id number]-pmvoibmlqsqstyd-GF 5 ml PO Q6H PRN Cough #240 mL 02/14/23 2 mg-30 mg-10 mg/5 mL oral syrup (Bromfed DM) Allergies Allergy/AdvReac Type Severity Reaction Status Date / Time strawberry Allergy Verified 02/14/23 10:53 [facility] Disclaimer: The information contained in this section may have been updated after the patient was seen, as this information can be updated by other users. Medical History (Updated 02/14/23 @ 11:01 by Keny Edge APRN) Atypical chest pain Constipation Daytime somnolence Dyspnea Flank pain Gastroesophageal reflux disease Kidney stone Obesity due to excess calories with serious comorbidity Obesity, morbid, BMI 40.0-49.9 Pericarditis Snoring Testosterone deficiency (~09/25/17) Vitamin D deficiency (~09/25/17) Social History Smoking Status: Unknown if ever smoked alcohol intake: never counseling provided: none substance use type: denies use current occupational status: other Travel in the last 8 weeks: None household members: family housing: house ROS Obtained: Yes All systems reviewed & no additional complaints except as documented Constitutional Constitutional: Reports chills and Reports fever(s) Eyes Eyes: Denies eye discharge ENT Ears, Nose, Mouth, and Throat: Reports as per HPI Cardiovascular Cardiovascular: Denies chest pain Respiratory Respiratory: Denies chest congestion and Reports cough Gastrointestinal Gastrointestingal: Reports nausea; Denies abdominal pain, constipation, cramping, diarrhea or vomiting Musculoskeletal Musculoskeletal: Denies arthralgias Integumentary/Breasts Skin/Breast: Denies rash Neurologic Neurologic: Denies paresthesias Physical Exam General General appearance: alert and in no apparent distress Head Head exam: atraumatic, normocephalic and normal inspection Eye Eye exam: Present normal appearance, PERRL and EOMI ENT ENT exam: Present mucous membranes moist and normal external ear exam Expanded ENT Exam TM/Canal exam: Bilateral TM: erythema and bulging Nose exam: Absent sinus tenderness Mouth exam: Present normal external inspection; Absent drooling Teeth exam: Present normal inspection Throat exam: Present tonsillar erythema, tonsillomegaly and tonsillar exudate Neck Neck exam: Present normal inspection, full ROM and trachea midline; Absent tenderness, meningismus or lymphadenopathy Chest Chest inspection: Present normal inspection and symmetric chest wall rise; Absent tenderness Respiratory Respiratory exam: Present normal lung sounds bilaterally; Absent respiratory distress, wheezes or stridor Cardiovascular Cardiovascular
[2023-02-14 10:50] LABS: UTC Strep Screen (Rapid) Positive (Negative)
[2023-02-14 10:51] VITALS: BP 135/80; PULSE 97; RESP 16; TEMP 36.8; O2SAT 98; BMI 43.7
[2023-02-14 11:07] VITALS: BP 135/80; PULSE 97; RESP 16; TEMP 36.8
== END 2023-02-14 11:09 | disposition home or self-care (01) ==
PROVIDERS: Emergency Provider Nurse Practitioner Family; PCP Physician Assistant
DX: J02.0 Streptococcal pharyngitis (principal); K21.9 Gastro-esophageal reflux disease without esophagitis; E66.01 Morbid (severe) obesity due to excess calories; E55.9 Vitamin D deficiency, unspecified; E34.9 Endocrine disorder, unspecified; Z68.41 Body mass index [BMI] 40.0-44.9, adult
CPT/HCPCS: 87880; 99212; 99214; G0463

== ENCOUNTER 2023-05-22 14:01 | Emergency (ER) | payer OTHER, SELFPAY ==
[2023-05-22 14:20] VITALS: BP 138/86; PULSE 101; RESP 18; TEMP 36.9; O2SAT 100; BMI 30.3
--- NOTE | 2023-05-22 14:41 | EXP.UTC ---
Discharge Plan Disposition Patient Disposition: Home, Self-Care Condition: Good Prescriptions Prescriptions: New amoxicillin 875 mg tablet 875 mg PO Q12H Qty: 20 0RF Referrals Follow up/Referrals: Davon Concepcion APRN [Primary Care Provider] - See instructions Activity Restrictions/Add. Instructions Additional Instructions/Restrictions: *Monitor Temp, Over the counter Motrin or Tylenol as directed/as needed Tylenol every 4 hours and Motrin every 6 hours (as long as your family doctor has told you that you can take it) for fever or pain. and straight to ER if unable to lower temp less than 101.0 after medication given *Warm salt water gargles may help to soothe the throat *Throat Lozenges? *Warm fluids like tea with honey may help to soothe the throat? *Sleep elevated *Humidifier/Vaporizer Take medication as prescribed Your throat swab was sent for culture. Those results are typically sent to your primary care. Be sure to follow up in 2-3 days with your family doctor/primary care physician if no improvement so they can review those result and treat if necessary. If you don?t have a primary care doctor, I recommend you get one but in the mean time, you will have to return to a walk in clinic Follow up IMMEDIATELY for new or worsening symptoms or no Noticeable improvement over the next 48-72 hours. 911 for difficulty breathing or swallowing Clinical Impressions Clinical Impression: Otitis media Qualifiers: Otitis media type: unspecified Laterality: left Qualified Code(s): H66.92 - Otitis media, unspecified, left ear Instructions Patient Instructions: DI for Otitis Media (Middle Ear Infection)-Child Discharge ED Provider: Paty Guerrero [facility] General Stated complaint: sore throat and earache Mode of Arrival: Ambulatory Source of Information: Patient Limitations: No Limitations Time Seen by Provider: 05/22/23 14:42 Description of Symptoms (Recalled from Triage Doc. by RN): PATIENT C/O SORE THROAT AND BILATERAL EAR PAIN X 3 DAYS HEENT Symptoms (Recalled from RN notes): Yes Resp Symptoms (Recalled from RN notes): No Skin Symptoms (Recalled from RN notes): No MS Symptoms (Recalled from RN notes): No Functional Status (Recalled from RN notes): WNL History of Present Illness Provider Complaint: Patient states that for the last three day he has been having bilateral ear pain and sore throat States that today it was hurting worse so he came in to get checked Related Data Previous Rx's Medication Instructions Recorded amoxicillin 875 mg tablet 875 mg PO Q12H #20 tabs 05/22/23 Allergies Allergy/AdvReac Type Severity Reaction Status Date / Time strawberry Allergy Verified 02/28/23 14:34 Worker's Comp Is this a Worker's Comp case?: No [facility] Disclaimer: The information contained in this section may have been updated after the patient was seen, as this information can be updated by other users. Medical History Atypical chest pain Constipation Daytime somnolence Dyspnea Flank pain Gastroesophageal reflux disease Kidney stone Obesity due to excess calories with serious comorbidity Obesity, morbid, BMI 40.0-49.9 Pericarditis Snoring Testosterone deficiency (~09/25/17) Vitamin D deficiency (~09/25/17) Social History Smoking Status: Unknown if ever smoked alcohol intake: never counseling provided: none substance use type: denies use current occupational status: other Travel in the last 8 weeks: None household members: family housing: house ROS Obtained: Yes All systems reviewed & no additional complaints except as documented and Yes Systems reviewed as appropriate & no additional complaints except as documented Constitutional Constitutional: Reports system reviewed and no additional complaints, except as documented and Reports as pe
[2023-05-22 14:45] LABS: UTC Strep Screen (Rapid) Negative (Negative)
[2023-05-22 14:51] VITALS: BP 138/86; PULSE 101; RESP 18; TEMP 36.9; O2SAT 100
== END 2023-05-22 14:58 | disposition home or self-care (01) ==
PROVIDERS: Emergency Provider Nurse Practitioner; PCP Nurse Practitioner Family
DX: H66.92 Otitis media, unspecified, left ear (principal); R07.0 Pain in throat; K21.9 Gastro-esophageal reflux disease without esophagitis
CPT/HCPCS: 87880; 99212; 99214; G0463

== ENCOUNTER 2023-06-23 22:58 | Emergency (ER) | payer OTHER, SELFPAY ==
[2023-06-23 23:05] VITALS: BP 151/93; PULSE 114; RESP 16; TEMP 37; O2SAT 98; BMI 43.5
[2023-06-23] MEDS: LACTATED RINGERS 1000ML 1,000 ML 999 ML IV (23:40)
[2023-06-23] MEDS: ACETAMINOPHEN 1,000MG/100ML VIAL 1000 MG IV (23:41)
[2023-06-23] MEDS: FAMOTIDINE 20MG/2ML VIAL 20 MG IV (23:41)
[2023-06-23] MEDS: ONDANSETRON 4MG/2ML VIAL 4 MG IV (23:41)
[2023-06-23 23:55] LABS: Basophils # 0.1 K/mm3 (0-0.2); Basophils % 0.6 % (0.1-2.0); Eosinophils # 0.5 K/mm3 (0.0-0.4); Eosinophils % 4.4 % (0.1-12.0); Hematocrit 48.3 % (42.0-52.0); Hemoglobin 16.1 g/dL (14.1-18.0); Lymphocytes # 2.4 K/mm3 (0.7-4.5); Lymphocytes % 20.8 % (10-50); Mean Corpuscular HGB Conc 33.4 g/dL (31.8-35.4); Mean Corpuscular Hemoglobin 28.4 pg (27.0-31.2); Mean Corpuscular Volume 85.2 fl (80-94); Mean Platelet Volume 7.7 fl (7.4-10.4); Monocytes # 0.5 K/mm3 (0.1-1.0); Monocytes % 4.4 % (1.7-9.3); Neutrophils % 69.8 % (37.0-80.0); Platelet Count 332 K/mm3 (142-424); Red Blood Count 5.67 M/mm3 (4.60-6.20); Red Cell Distribution Width 13.9 % (11.5-17.5); White Blood Count 11.5 K/mm3 (4.8-10.8)
--- NOTE | 2023-06-23 23:56 | ED_ITS ---
Discharge Plan Disposition Patient Disposition: Home, Self-Care Condition: Good Prescriptions Prescriptions: New pantoprazole 40 mg tablet,delayed release (DR/EC) 40 mg PO DAILY Qty: 30 0RF Referrals Follow up/Referrals: Davon Concepcion APRN [Primary Care Provider] - See instructions Activity Restrictions/Add. Instructions Additional Instructions/Restrictions: You were evaluated in the emergency department today. Please clam picker your prescription at the pharmacy and take as prescribed. Follow-up with your primary care provider for reassessment over the next 3 days. Return to the emergency department for new or worsening symptoms. Clinical Impressions Clinical Impression: Abdominal pain Qualifiers: Abdominal location: epigastric Qualified Code(s): R10.13 - Epigastric pain Instructions Patient Instructions: DI for Acute Abdominal Pain Discharge ED Provider: Juanis Humphrey General Adult HPI General Chief complaint: Abdominal Pain Stated complaint: pain in belly button Time Seen by Provider: 06/23/23 23:06 Mode of Arrival: Family Vehicle Source of Information: Patient Limitations: No Limitations Description of Symptoms (Recalled from ER Triage Doc. by RN): 28 yo male presents with cc of periumbilical pain that he describes as sharp unless he presses in on the area. afebrile. onset 1 day ago. Last bm today and normal for him. denies dysuria. denies n/v. denies change in appetite. Patient is alert, oriented; no previous med history per his report. No recent illness. No associative actions with onset. History of Present Illness HPI narrative: This patient is a 28-year-old male who reports history of gallbladder issues, constipation, and obesity presenting to the emergency department for evaluation with concern for epigastric and left upper quadrant abdominal pain that started yesterday. He denies any fevers, chills, nausea, vomiting, changes in bowel movements, or other concerns. His last bowel movement was today after not having a bowel movement for approximately 4 days. He still able to eat and drink without issues. No other concerns noted at this time. Related Data Previous Rx's Medication Instructions Recorded pantoprazole 40 mg tablet,delayed 40 mg PO DAILY #30 tabs 06/24/23 release Allergies Allergy/AdvReac Type Severity Reaction Status Date / Time strawberry Allergy Verified 02/28/23 14:34 [facility] Disclaimer: The information contained in this section may have been updated after the patient was seen, as this information can be updated by other users. Medical History Atypical chest pain Constipation Daytime somnolence Dyspnea Flank pain Gastroesophageal reflux disease Kidney stone Obesity due to excess calories with serious comorbidity Obesity, morbid, BMI 40.0-49.9 Pericarditis Snoring Testosterone deficiency (~09/25/17) Vitamin D deficiency (~09/25/17) Social History Smoking Status: Unknown if ever smoked alcohol intake: never counseling provided: none substance use type: denies use current occupational status: other Travel in the last 8 weeks: None household members: family housing: house ROS Obtained: Yes All systems reviewed & no additional complaints except as documented Physical Exam General General appearance: alert, in no apparent distress and obese Head Head exam: atraumatic and normocephalic Eye Eye exam: Present normal appearance, PERRL and EOMI ENT ENT exam: Present normal exam, normal oropharynx, mucous membranes moist and normal external ear exam Neck Neck exam: Present normal inspection, full ROM and trachea midline; Absent tenderness Chest Chest inspection: Present normal inspection and symmetric chest wall rise; Absent tenderness Respiratory Respiratory exam: Present normal lung sounds bilaterally; Absent respiratory distress, wheezes, stridor or accessory muscle use Cardiovascular Cardiovascular exam: Present regular rate and normal rhythm Abdominal Exam Abdominal exam: Present soft, tenderness (Epigastric, left upper quadrant. Mild, only to deep palpation) and normal bowel sounds; Absent distention, guarding, rebound or rigidity Extremities Exam Extremities exam: Present normal inspection, full ROM and normal capillary refill; Absent tenderness or edema Back Exam Back exam: Present normal inspection and full ROM; Absent tenderness Neurological Exam Neurological exam: Present alert, oriented X3, CN II-XII intact and normal gait; Absent motor sensory deficit Psychiatric Psychiatric exam: Present normal affect and normal mood Skin Skin exam: Present warm and dry Medical Decision Making Medical Records Medical records reviewed: Yes I reviewed the patient's medical records. Daniel Inquiry Pt receiving controlled substance: No Vital Signs: 06/23/23 23:05 06/24/23 01:06 Temperature 98.6 F 98.6 F Temperature Source Oral Oral Pulse Rate 80 Pulse Rate [Right Brachial] 114 H Respiratory Rate 16 15 Blood Pressure 141/78 H Blood Pressure [Right Arm] 151/93 H Blood Pressure Mean [Right Arm] 112 Blood Pressure Source Automatic Cuff Blood Pressure Source [Right Arm] Automatic Cuff Blood Pressure Position Sitting Blood Pressure Position [Right Arm] Sitting 02 Sat by Pulse Oximetry 98 Oxygen Delivery Method Room Air Room Air Lab Data Lab results reviewed: Yes I reviewed the patient's lab results. Lab Results 06/23/23 22:38: WBC 11.5 H, RBC 5.67, Hgb 16.1, Hct 48.3, MCV 85.2, MCH 28.4, MCHC 33.4, RDW 13.9, Plt Count 332, MPV 7.7, Neut % (Auto) 69.8, Lymph % (Auto) 20.8, [place] % (Auto) 4.4, Eos % (Auto) 4.4, Baso % (Auto) 0.6, Neut # (Auto) 8.0 H, Lymph # (Auto) 2.4, [place] # (Auto) 0.5, Eos # (Auto) 0.5 H, Baso # (Auto) 0.1, Sodium 140, Potassium 4.3, Chloride 105, Carbon Dioxide 25, Anion Gap 14.3, BUN 12, Creatinine 1.00, Estimated Creat Clear 125, Estimated GFR 90, Est GFR ( Amer) 108, Glucose 114 H, Calcium 8.7, Total Bilirubin 0.4, AST 39, ALT 41, Alkaline Phosphatase 109, Total Protein 8.0, Albumin 4.3, Globulin 3.7 H, Albumin/Globulin Ratio 1.2, Lipase 55 06/23/23 22:38 06/23/23 22:38 Orders (Tests/Meds): ED MEDICATIONS Discontinued Medications Generic Name Dose Route Start Last Admin Trade Name Marcoq PRN Reason Stop Dose Admin Acetaminophen 1,000 mg 06/23/23 23:28 06/23/23 23:41 Acetaminophen 1,000mg/100ml Vial IV 06/23/23 23:29 1,000 mg ONCE ONE Administration Famotidine 20 mg 06/23/23 23:28 06/23/23 23:41 Famotidine 20mg/2ml Vial IV 06/23/23 23:29 20 mg ONCE ONE Administration Lactated Ringer's 1,000 mls @ 999 mls/hr 06/23/23 23:28 06/23/23 23:40 Lactated Ringer's 1000 Ml Bag IV 06/24/23 00:28 999 mls/hr .Q1H1M ONE Administration Ondansetron HCl 4 mg 06/23/23 23:28 06/23/23 23:41 Ondansetron 4mg/2ml Vial IV 06/23/23 23:29 4 mg ONCE ONE Administration Sodium Chloride 8 ml 06/23/23 23:28 Sodium Chloride 0.9% 10ml Vial IV 07/23/23 23:27 NEEDED PRN dilute pepcid ORDERS Category Date Time Status Complete Blood Count Auto Diff Stat Lab 06/23/23 22:38 Completed Comprehensive Metabolic Panel Stat Lab 06/23/23 22:38 Completed Lipase Stat Lab 06/23/23 22:38 Completed Medical Decision Narrative: In summary, this patient is a 28-year-old male presenting to the Emergency Department for evaluation of epigastric/left upper quadrant abdominal pain. Differential diagnoses considered include but are not limited to gastritis, pancreatitis, constipation, cholecystitis, peptic ulcer disease. Ruling out the most morbid conditions drove assessment. It should be noted patient's history includes obesity which is not at goal therapy. This complicates all aspects of care by increasing patient's risk for morbidity. On exam, the patient is well-appearing. He said no fevers, chills, nausea, vomiting, changes in appetite, or other concerns. Exam is reassuring with only mild epigastric/left upper quadrant tenderness to deep palpation. Workup included CBC, CMP, lipase. Patient was given a bolus of IV fluids as well as IV Pepcid, Zofran, and acetaminophen for symptomatic improvement. On reassessment, the patient is resting comfortably. Labs do not demonstrate any acutely concerning abnormalities. I considered obtaining imaging, including CT scan of the abdomen and pelvis, however based on reassuring exam and workup, I do not feel that this would casino change attendant. Patient notes that he is supposed to be on medication for acid reflux but he is not able to get it. Given this, this could be causing his symptoms. He may have gastritis/peptic ulcer disease. He was given prescription for pantoprazole, instructions for close follow-up with his primary care provider, strict return precautions. He was discharged in stable condition with strict return precautions after all questions were answered. Critical Care Critical Care Time Critical Care Time: No
[2023-06-23 23:59] LABS: Chloride 105 mmol/L (98-107); Potassium 4.3 mmoL/L (3.5-5.1); Sodium 140 mmol/L (136-145)
[2023-06-24 00:02] LABS: Alanine Aminotransferase 41 U/L (12-78); Albumin Level 4.3 g/dl (3.5-5.0); Albumin/Globulin Ratio 1.2 (1.1-1.8); Alkaline Phosphatase 109 U/L (38-126); Anion Gap 14.3 mEq/L (5-15); Aspartate Amino Transferase 39 U/L (17-59); Bilirubin,Total 0.4 mg/dl (0.2-1.3); Blood Urea Nitrogen 12 mg/dl (9-20); Calcium 8.7 mg/dl (8.4-10.2); Carbon Dioxide 25 mmol/L (22.0-30.0); Creatinine Clearance Estimated 125 mL/min (50-200); Estimated Glomerular Filt Rate 90 ml/min (>60); GFR (African American) 108 ML/MIN (>60); Globulin 3.7 g/dL (1.3-3.2); Glucose 114 mg/dl (74-100); Lipase 55 U/L (23-300)
[2023-06-24 01:06] VITALS: BP 141/78; PULSE 80; RESP 15; TEMP 37; O2SAT 100
--- NOTE | 2023-06-30 08:19 | PC.NURSE ---
DISCUSSED WOUND CULTURE WITH DR DAY, PT DISCHARGED ON BACTRIM, NO NEW ORDERS
== END 2023-06-24 01:07 | disposition home or self-care (01) ==
PROVIDERS: Emergency Provider Emergency Medicine; PCP Nurse Practitioner Family
DX: R10.13 Epigastric pain (principal); R10.33 Periumbilical pain; K21.9 Gastro-esophageal reflux disease without esophagitis
CPT/HCPCS: 80053; 83690; 85025; 96361; 96374; 96375; 99284; J0131; J2405

== ENCOUNTER 2023-06-25 23:07 | Emergency (ER) | payer OTHER, SELFPAY ==
[2023-06-25 23:09] VITALS: BP 141/85; PULSE 99; RESP 18; TEMP 36.9; O2SAT 99; BMI 43.5
--- NOTE | 2023-06-25 23:16 | CT_ITS ---
PROCEDURE INFORMATION: Exam: CT Abdomen And Pelvis With Contrast Exam date and time: 06/25/2023 11:45 PM Age: 28 years old Clinical indication: Abdominal pain; Additional info: Drainage/wound in umbilicus, abd pain TECHNIQUE: Imaging protocol: Computed tomography of the abdomen and pelvis with contrast. Radiation optimization: All CT scans at this facility use at least one of these dose optimization techniques: automated exposure control; mA and/or kV adjustment per patient size (includes targeted exams where dose is matched to clinical indication); or iterative reconstruction. Contrast material: ISOVUE; Contrast volume: 75 ml; Contrast route: IV; COMPARISON: MR ABDOMEN WO/W CON 07/30/2021 9:13 AM FINDINGS: Liver: Normal. No mass. Gallbladder and bile ducts: Normal. No calcified stones. No ductal dilation. Pancreas: Normal. No ductal dilation. 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 The lesion previously measured 2.6 x 1.8 cm and now measures 1.8 x 2.1 cm sagittal image 1002/82 Adrenal glands: Normal. No mass. Kidneys and ureters: Normal. No hydronephrosis. Stomach and bowel: Nonspecific bowel gas pattern. Appendix: Normal appendix Intraperitoneal space: Unremarkable. No free air. No significant fluid collection. Vasculature: Unremarkable. No abdominal aortic aneurysm. Lymph nodes: No free air or fluid or adenopathy. Urinary bladder: Unremarkable as visualized. Reproductive: Unremarkable as visualized. Bones/joints: Unremarkable. No acute fracture. Soft tissues: No focal fluid collections in the umbilical region to suggest abscess. Small fat filled umbilical hernia. IMPRESSION: 1. No free air or fluid or adenopathy. 2. No focal fluid collections in the umbilical region to suggest abscess. Small fat filled umbilical hernia. 3. 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 The lesion previously measured 2.6 x 1.8 cm and now measures 1.8 x 2.1 cm sagittal image 1002/82 4. Nonspecific bowel gas pattern. 5. Normal appendix
--- NOTE | 2023-06-25 23:20 | HMH.EDGENADL ---
Discharge Plan Disposition Patient Disposition: Home, Self-Care Condition: Good Prescriptions Prescriptions: New sulfamethoxazole-trimethoprim [Bactrim DS] 800-160 mg tablet 1 tab PO BID 10 Days Qty: 20 0RF No Action pantoprazole 40 mg tablet,delayed release (DR/EC) 40 mg PO DAILY Qty: 30 0RF Referrals Follow up/Referrals: Chandra Mcbride MD [Staff Physician] - See instructions Davon Concepcion APRN [Primary Care Provider] - See instructions Activity Restrictions/Add. Instructions Additional Instructions/Restrictions: You were evaluated in the emergency department today. Please follow-up closely with your primary care provider as well as with general surgery for further evaluation and management. This does not mean that she had to have surgery, they typically will monitor hernias and issues with the abdomen. credit support counselor your prescription for antibiotics and take the full course as prescribed. Take Tylenol and ibuprofen every 4-6 hours as needed for pain. Return to the emergency department for new or worsening symptoms. Clinical Impressions Clinical Impression: Umbilical discharge, Abdominal pain, Abdominal wall cellulitis, Hernia, umbilical Instructions Patient Instructions: DI for Abdominal Pain-Adult, DI for Acute Abdominal Pain Discharge ED Provider: Juanis Humphrey General Adult HPI General Chief complaint: Abdominal Pain Stated complaint: Naval painful with drainage Time Seen by Provider: 06/25/23 23:11 History of Present Illness HPI narrative: This patient is a 28-year-old male with history of obesity presenting to the emergency department for evaluation with concern for serosanguineous drainage from his umbilicus. Patient was evaluated here 2 days ago by myself for epigastric/left upper quadrant abdominal pain with no fevers, nausea, vomiting, or changes in bowel movements. Labs and exam were reassuring at that time, and patient was discharged home. Since going home, he has had continued pain and he notes that he woke up prior to arrival with drainage from his bellybutton. He notes that he has improvement in his pain with pushing on his bellybutton, so he tried to do that, and there was a puddle of fluid. He denies any fevers, nausea, vomiting, change in bowel movements, or other concerns. He did have a bowel movement today which was normal for him. No prior abdominal surgeries Related Data Previous Rx's Medication Instructions Recorded pantoprazole 40 mg tablet,delayed 40 mg PO DAILY #30 tabs 01/12/24 release sulfamethoxazole 800 1 tab PO BID 10 days #20 tabs 06/26/23 mg-trimethoprim 160 mg tablet (Bactrim DS) Allergies Allergy/AdvReac Type Severity Reaction Status Date / Time strawberry Allergy Verified 02/28/23 14:34 [facility] Disclaimer: The information contained in this section may have been updated after the patient was seen, as this information can be updated by other users. Medical History Atypical chest pain Constipation Daytime somnolence Dyspnea Flank pain Gastroesophageal reflux disease Kidney stone Obesity due to excess calories with serious comorbidity Obesity, morbid, BMI 40.0-49.9 Pericarditis Snoring Testosterone deficiency (~09/25/17) Vitamin D deficiency (~09/25/17) Social History Smoking Status: Never smoker alcohol intake: never counseling provided: none substance use type: denies use current occupational status: other Travel in the last 8 weeks: None household members: family housing: house ROS Obtained: Yes All systems reviewed & no additional complaints except as documented Physical Exam General General appearance: alert and in no apparent distress Head Head exam: atraumatic and normocephalic Eye Eye exam: Present normal appearance, PERRL and EOMI ENT ENT exam: Present normal exam, normal oropharynx, mucous membranes moist and normal external ear exam Neck Neck exam: Present normal inspection, full ROM and trachea midline; Absent tenderness Chest Chest inspection: Present normal inspection and symmetric chest wall rise; Absent tenderness Respiratory Respiratory exam: Present normal lung sounds bilaterally; Absent respiratory distress, wheezes, stridor or accessory muscle use Cardiovascular Cardiovascular exam: Present regular rate and normal rhythm Abdominal Exam Abdominal exam: Present soft, tenderness (Epigastric, mild) and other (Foul-smelling umbilicus with serosanguineous drainage. Difficulty visualizing the entire umbilicus given body habitus, but there is redness and irritation deep in the umbilicus, no obvious hernia or protrusion of intraabdominal contents); Absent distention or guarding Extremities Exam Extremities exam: Present normal inspection, full ROM and normal capillary refill; Absent tenderness or edema Back Exam Back exam: Present normal inspection and full ROM; Absent tenderness Neurological Exam Neurological exam: Present alert, oriented X3, CN II-XII intact and normal gait; Absent motor sensory deficit Psychiatric Psychiatric exam: Present normal affect and normal mood Skin Skin exam: Present warm and dry Medical Decision Making Medical Records Medical records reviewed: Yes I reviewed the patient's medical records. Daniel Inquiry Pt receiving controlled substance: No Vital Signs: 06/25/23 23:09 06/26/23 01:06 Temperature 98.4 F 98.2 F Temperature Source Oral Oral Pulse Rate 80 Pulse Rate [Right Radial] 99 H Respiratory Rate 18 17 Blood Pressure 124/77 Blood Pressure [Right Arm] 141/85 H Blood Pressure Mean [Right Arm] 103 Blood Pressure Source Automatic Cuff Blood Pressure Source [Right Arm] Automatic Cuff Blood Pressure Position Sitting Blood Pressure Position [Right Arm] Sitting 02 Sat by Pulse Oximetry 99 Oxygen Delivery Method Room Air Room Air Lab Data Lab results reviewed: Yes I reviewed the patient's lab results. Lab Results 06/25/23 23:22: WBC 11.3 H, RBC 5.72, Hgb 16.6, Hct 48.2, MCV 84.2, MCH 28.9, MCHC 34.4, RDW 14.0, Plt Count 329, MPV 8.4, Neut % (Auto) 65.1, Lymph % (Auto) 24.6, [place] % (Auto) 5.4, Eos % (Auto) 4.3, Baso % (Auto) 0.6, Neut # (Auto) 7.3, Lymph # (Auto) 2.8, [place] # (Auto) 0.6, Eos # (Auto) 0.5 H, Baso # (Auto) 0.1, Sodium 140, Potassium 4.1, Chloride 107, Carbon Dioxide 25, Anion Gap 12.1, BUN 11, Creatinine 0.90, Estimated Creat Clear 139, Estimated GFR 101, Est GFR ( Amer) 122, Glucose 102 H, Lactate 1.3, Calcium 8.7, Total Bilirubin 0.5, AST 33, ALT 35, Alkaline Phosphatase 107, Total Protein 7.9, Albumin 4.3, Globulin 3.6 H, Albumin/Globulin Ratio 1.2, Lipase 52 06/25/23 23:22 06/25/23 23:22 Orders (Tests/Meds): ED MEDICATIONS Discontinued Medications Generic Name Dose Route Start Last Admin Trade Name Freq PRN Reason Stop Dose Admin Iopamidol 75 ml 06/25/23 23:53 06/25/23 23:54 Iopamidol-370 (76%);100ml Bottle IV 06/25/23 23:54 75 ml ONCE ONE Administration Sodium Chloride 10 ml 06/25/23 23:53 06/25/23 23:54 Sodium Chloride 0.9% 10ml Syr (Rad Only) IV 06/25/23 23:54 10 ml ONCE ONE Administration Trimethoprim/Sulfamethoxazole 1 each 06/26/23 00:51 06/26/23 01:00 Sulfa/Trimethoprim 1 Tablet PO 06/26/23 00:52 1 each ONCE ONE Administration ORDERS Category Date Time Status CT abdomen pelvis w con Stat Cat Scan 06/25/23 23:16 Completed Complete Blood Count Auto Diff Stat Lab 06/25/23 23:22 Completed Comprehensive Metabolic Panel Stat Lab 06/25/23 23:22 Completed Lactic Acid Stat Lab 06/25/23 23:22 Completed Lipase Stat Lab 06/25/23 23:22 Completed Wound Culture and Gram Stain Stat Micro 06/25/23 23:16 Received Medical Decision Narrative: In summary, this patient is a 28-year-old male presenting to the Emergency Department for evaluation of abdominal pain and drainage from his umbilicus. Differential diagnoses considered include but are not limited to omphalitis, patent urachus, urachal cyst, cellulitis, hernia. Ruling out the most morbid conditions drove assessment. It should be noted patient's history includes obesity which is not at goal therapy. This complicates all aspects of care by increasing patient's risk for morbidity. I reviewed patient's past medical records and noted his valuation here 06/23/2022 and reassuring exam and labs at that time. On exam, the patient is nontoxic-appearing. Vitals are reassuring. Abdominal exam is benign. He does have minimal serosanguineous drainage from his umbilicus with some redness and irritation. No obvious hernia or evisceration. Workup included CBC, CMP, lipase, lactic acid, and CT abdomen pelvis with IV contrast. I independently interpreted CT scan prior to the radiologist read and noted no obvious acute abscess, fluid collection, or other concerns. Patient does have a very small fat-containing umbilical hernia. Please see their read for final interpretation. Labs were obtained that demonstrated no significant changes from labs 2 days ago. On reassessment, patient is resting comfortably. I feel that his symptoms are most likely related to abdominal wall cellulitis about his umbilicus. He was given prescription for Bactrim and instructions for close follow-up with his primary care provider as well as with general surgery for monitoring of his hernia and his abdominal wall cellulitis. He was given instructions for supportive management, strict return precautions, and he was discharged in stable condition after all questions were answered. Critical Care Critical Care Time Critical Care Time: No
[2023-06-25 23:32] LABS: Basophils # 0.1 K/mm3 (0-0.2); Basophils % 0.6 % (0.1-2.0); Eosinophils # 0.5 K/mm3 (0.0-0.4); Eosinophils % 4.3 % (0.1-12.0); Hematocrit 48.2 % (42.0-52.0); Hemoglobin 16.6 g/dL (14.1-18.0); Lymphocytes # 2.8 K/mm3 (0.7-4.5); Lymphocytes % 24.6 % (10-50); Mean Corpuscular HGB Conc 34.4 g/dL (31.8-35.4); Mean Corpuscular Hemoglobin 28.9 pg (27.0-31.2); Mean Corpuscular Volume 84.2 fl (80-94); Mean Platelet Volume 8.4 fl (7.4-10.4); Monocytes # 0.6 K/mm3 (0.1-1.0); Monocytes % 5.4 % (1.7-9.3); Neutrophils # 7.3 K/mm3 (1.8-7.8); Neutrophils % 65.1 % (37.0-80.0); Platelet Count 329 K/mm3 (142-424); Red Blood Count 5.72 M/mm3 (4.60-6.20); White Blood Count 11.3 K/mm3 (4.8-10.8)
[2023-06-25 23:37] LABS: Chloride 107 mmol/L (98-107); Potassium 4.1 mmoL/L (3.5-5.1); Sodium 140 mmol/L (136-145)
[2023-06-25 23:40] LABS: Alanine Aminotransferase 35 U/L (12-78); Albumin Level 4.3 g/dl (3.5-5.0); Albumin/Globulin Ratio 1.2 (1.1-1.8); Alkaline Phosphatase 107 U/L (38-126); Anion Gap 12.1 mEq/L (5-15); Aspartate Amino Transferase 33 U/L (17-59); Bilirubin,Total 0.5 mg/dl (0.2-1.3); Blood Urea Nitrogen 11 mg/dl (9-20); Calcium 8.7 mg/dl (8.4-10.2); Carbon Dioxide 25 mmol/L (22.0-30.0); Creatinine Clearance Estimated 139 mL/min (50-200); Estimated Glomerular Filt Rate 101 ml/min (>60); GFR (African American) 122 ML/MIN (>60); Globulin 3.6 g/dL (1.3-3.2); Glucose 102 mg/dl (74-100); Lactic Acid 1.3 mmol/L (0.7-2.1); Lipase 52 U/L (23-300); Total Protein,Serum 7.9 g/dl (6.3-8.2)
[2023-06-25] MEDS: SODIUM CHLORIDE 0.9% 10ML SYR (RAD ONLY) 10 ML IV (23:54)
[2023-06-25] MEDS: IOPAMIDOL-370 (76%);100ML BOTTLE 75 ML IV (23:54)
[2023-06-26] MEDS: SULFA/TRIMETHOPRIM 1 TABLET 1 EACH PO (01:00)
[2023-06-26 01:06] VITALS: BP 124/77; PULSE 80; RESP 17; TEMP 36.8; O2SAT 97
--- NOTE | 2023-06-28 12:50 | PC.NURSE ---
Wound culture results showed to , no further orders at this time.
== END 2023-06-26 01:07 | disposition home or self-care (01) ==
PROVIDERS: Emergency Provider Emergency Medicine; PCP Nurse Practitioner Family
DX: R10.13 Epigastric pain (principal); L03.311 Cellulitis of abdominal wall; B96.89 Other specified bacterial agents as the cause of diseases classified elsewhere; R19.8 Other specified symptoms and signs involving the digestive system and abdomen; K42.9 Umbilical hernia without obstruction or gangrene; K21.9 Gastro-esophageal reflux disease without esophagitis; E66.01 Morbid (severe) obesity due to excess calories; Z68.41 Body mass index [BMI] 40.0-44.9, adult
CPT/HCPCS: 74177; 80053; 83605; 83690; 85025; 87070; 87205; 99284; Q9967

== ENCOUNTER 2023-07-07 21:06 | Outpatient (CLI) | payer OTHER, SELFPAY ==
[2023-07-07 18:59] LABS: Adenovirus,PCR Not Detected (NotDetected); Coronavirus 229E Not Detected (NotDetected); Coronavirus NL63 Not Detected (NotDetected); Coronavirus OC43 Not Detected (NotDetected); Coronovirus HKU1,PCR Not Detected (NotDetected); Human Metapneumovirus Not Detected (NotDetected); Influenza A, PCR Not Detected (NotDetected); Influenza AH1, 2009 Not Detected (NotDetected); Influenza AH1, PCR Not Detected (NotDetected); Influenza AH3,PCR Not Detected (NotDetected); Influenza B, PCR Not Detected (NotDetected); Parainfluenza 1, PCR Not Detected (NotDetected); Parainfluenza 2, PCR Not Detected (NotDetected); Parainfluenza 3, PCR Not Detected (NotDetected); Parainfluenza 4, PCR Not Detected (NotDetected); Respiratory Syncytial Virus Not Detected (NotDetected); Rhinovirus/Enterovirus Not Detected (NotDetected)
[2023-07-08 12:38] LABS: Coronavirus 19, PCR Detected (NotDetected)
== END 2023-07-07 23:59 ==
LOC: LAB.DROPOF 21:06
PROVIDERS: PCP Student in an Organized Health Care Education/Training Program; Visit Provider Student in an Organized Health Care Education/Training Program
DX: R05.9 Cough, unspecified (principal); U07.1 COVID-19; J02.9 Acute pharyngitis, unspecified; R09.89 Other specified symptoms and signs involving the circulatory and respiratory systems
CPT/HCPCS: 87070; 87581; 87632; 87635; 87798

== ENCOUNTER 2023-07-16 20:42 | Emergency (ER) | payer OTHER, SELFPAY ==
[2023-07-16 20:43] VITALS: BP 123/85; PULSE 110; RESP 16; TEMP 36.8; O2SAT 98; BMI 33.9
--- NOTE | 2023-07-16 20:56 | HMH.EDGENADL ---
Discharge Plan Disposition Patient Disposition: Home, Self-Care Prescriptions Prescriptions: New lidocaine 5 % adhesive patch,medicated 1 patch topical DAILY Qty: 15 0RF Rx Instructions: leave on most painful area for up to 12 hrs No Action lpqrzaxdxfewres-aulejrzav-DI [Bromfed DM] 2-30-10 mg/5 mL syrup 5 ml PO Q4-6H PRN (Reason: cold symptoms) Qty: 118 0RF pantoprazole 40 mg tablet,delayed release (DR/EC) 40 mg PO DAILY Qty: 30 0RF Referrals Follow up/Referrals: Davon Concepcion APRN [Primary Care Provider] - See instructions Activity Restrictions/Add. Instructions Additional Instructions/Restrictions: Take Tylenol 1000 mg every 6 hours (4 times daily) and ibuprofen 400 mg every 6 hours (4 times daily) as needed with food and water to prevent GI upset and kidney damage. Clinical Impressions Clinical Impression: Intercostal muscle strain Qualifiers: Encounter type: initial encounter Qualified Code(s): S29.011A - Strain of muscle and tendon of front wall of thorax, initial encounter Instructions Patient Instructions: DI for Low Back Pain Discharge ED Provider: Teo Courtney General Adult HPI General Chief complaint: Back Pain/Injury Stated complaint: right side pain Time Seen by Provider: 07/16/23 20:48 History of Present Illness HPI narrative: 28-year-old male no relevant medical history presenting with posterior lateral chest wall pain on the right. Patient states that he was moving boxes all afternoon. A couple hours afterward, he was drinking pop when he had an immediate pain in his right posterior ribs. Had pain like this in the past, but it went away on its own. He has not taken anything for the pain. He states that application of pressure hurts sometimes it makes it better sometimes, twisting makes it worse. Denies bowel or bladder dysfunction, left-sided symptoms. Related Data Previous Rx's Medication Instructions Recorded pantoprazole 40 mg tablet,delayed 40 mg PO DAILY #30 tabs 06/24/23 release poftiypalgsbrhy-yqkuvvequejennm-FS 5 ml PO Q4-6H PRN cold symptoms 07/07/23 2 mg-30 mg-10 mg/5 mL oral syrup #118 mL (Bromfed DM) lidocaine 5 % topical patch 1 patch topical DAILY #15 ea 07/16/23 Allergies Allergy/AdvReac Type Severity Reaction Status Date / Time strawberry Allergy Verified 07/07/23 13:17 [facility] Disclaimer: The information contained in this section may have been updated after the patient was seen, as this information can be updated by other users. Medical History Atypical chest pain Constipation Daytime somnolence Dyspnea Flank pain Gastroesophageal reflux disease Kidney stone Obesity due to excess calories with serious comorbidity Obesity, morbid, BMI 40.0-49.9 Pericarditis Snoring Testosterone deficiency (~09/25/17) Vitamin D deficiency (~09/25/17) Surgical History No significant past surgical history Family History Other No significant family history Social History Smoking Status: Never smoker alcohol intake: never counseling provided: none substance use type: denies use current occupational status: other Travel in the last 8 weeks: None household members: family housing: house ROS Obtained: Yes All systems reviewed & no additional complaints except as documented Physical Exam General General appearance: alert, in no apparent distress and obese Head Head exam: atraumatic and normocephalic Eye Eye exam: Present normal appearance, PERRL and EOMI ENT ENT exam: Present mucous membranes moist Neck Neck exam: Present normal inspection, full ROM and trachea midline Chest Chest inspection: Present tenderness (R posterior chest wall, no overlyying changes) Respiratory Respiratory exam: Absent respiratory distress, wheezes, stridor, accessory muscle use or prolonged expiratory phase Cardiovascular Cardiovascular exam: Present normal rhythm Abdominal Exam Abdominal exam: Present soft; Absent distention, tenderness, guarding, rebound or rigidity Extremities Exam Extremities exam: Absent edema Neurological Exam Neurological exam: Present alert, oriented X3, CN II-XII intact and normal gait; Absent motor sensory deficit Skin Skin exam: Present warm and dry; Absent diaphoresis or erythema Medical Decision Making Medical Records Medical records reviewed: Yes I reviewed the patient's medical records. Daniel Inquiry Pt receiving controlled substance: No Daniel was queried for this patient: No Vital Signs: 07/16/23 20:43 Temperature 98.3 F Temperature Source Oral Pulse Rate [Right] 110 H Respiratory Rate 16 Blood Pressure [Right Arm] 123/85 Blood Pressure Mean [Right Arm] 97 Blood Pressure Source [Right Arm] Automatic Cuff Blood Pressure Position [Right Arm] Sitting 02 Sat by Pulse Oximetry 98 Oxygen Delivery Method Room Air Orders (Tests/Meds): ED MEDICATIONS Discontinued Medications Generic Name Dose Route Start Last Admin Trade Name Rozina PRN Reason Stop Dose Admin Acetaminophen 1,000 mg 07/16/23 20:55 07/16/23 21:06 Acetaminophen 500mg Tab PO 07/16/23 20:56 1,000 mg ONCE ONE Administration Dexamethasone 10 mg 07/16/23 20:55 07/16/23 21:06 Dexamethasone 4mg Tablet PO 07/16/23 20:56 10 mg ONCE ONE Administration Ibuprofen 600 mg 07/16/23 20:55 07/16/23 21:07 Ibuprofen 600 Mg Tablet PO 07/16/23 20:56 600 mg ONCE ONE Administration Lidocaine 1 each 07/16/23 20:55 07/16/23 21:05 Lidocaine 5% Transdermal Patch TP 07/16/23 20:56 1 each ONCE ONE Administration Medical Decision Narrative: 28-year-old male no relevant medical history presenting with posterior lateral chest wall pain on the right. Patient states that he was moving boxes all afternoon. A couple hours afterward, he was drinking pop when he had an immediate pain in his right posterior ribs. Had pain like this in the past, but it went away on its own. He has not taken anything for the pain. He states that application of pressure hurts sometimes it makes it better sometimes, twisting makes it worse. Denies bowel or bladder dysfunction, left-sided symptoms. Patient History was obtained via conversation with patient. On arrival, patient hemodynamically stable, alert, oriented x4, appropriate, GCS 15, moving all extremities spontaneously, pupils equal and reactive to light. Full physical exam performed and significant for patient with focal posterior chest wall pain as well as worsening pain that shoots around to abdomen with application of pressure. No overlying skin changes Differential includes radiculopathy, intercostal muscle sprain, among others. Patient was given lidocaine patch, Tylenol, Motrin, Decadron for symptomatic management and correction of underlying abnormalities. On reevaluation, patient feeling much better. Given patient presentation, workup, history, this most likely represents intercostal muscle strain. Because patient at baseline without signs or symptoms of clinical decompensation, deemed appropriate for discharge. Results were relayed to patient who voiced understanding and were agreeable to outpatient management and follow up. At the time of discharge the patient was hemodynamically stable, tolerating PO, and mobilizing appropriately. Critical Care Critical Care Time Critical Care Time: No
[2023-07-16] MEDS: LIDOCAINE 5% TRANSDERMAL PATCH 1 EACH TP (21:05)
[2023-07-16] MEDS: ACETAMINOPHEN 500MG TAB 1000 MG PO (21:06)
[2023-07-16] MEDS: DEXAMETHASONE 4MG TABLET 10 MG PO (21:06)
[2023-07-16] MEDS: IBUPROFEN 600 MG TABLET PO (21:07)
[2023-07-16 21:46] VITALS: BP 133/85; PULSE 92; RESP 18; TEMP 36.8; O2SAT 97
== END 2023-07-16 21:47 | disposition home or self-care (01) ==
PROVIDERS: Emergency Provider Emergency Medicine; PCP Nurse Practitioner Family
DX: S29.011A Strain of muscle and tendon of front wall of thorax, initial encounter (principal); X50.0XXA Overexertion from strenuous movement or load, initial encounter
CPT/HCPCS: 99283

== ENCOUNTER 2023-07-23 18:15 | Emergency (ER) | payer OTHER, SELFPAY ==
[2023-07-23 19:00] VITALS: BP 136/93; PULSE 99; RESP 19; TEMP 37.1; O2SAT 96; BMI 42.8
--- NOTE | 2023-07-23 19:01 | EXP.UTC ---
Discharge Plan Disposition Patient Disposition: Home, Self-Care Condition: Good Prescriptions Prescriptions: New amoxicillin [amoxicillin] 875 mg tablet 875 mg PO Q12H Qty: 20 0RF kzukmagoaouhyls-swhwqrrpa-TL [Bromfed DM] 2-30-10 mg/5 mL Syrup 5 ml PO Q6H PRN (Reason: Cough) Qty: 240 0RF methylprednisolone 4 mg Tablets,Dose Pack 4 mg PO DIRECTED 6 Days Qty: 21 0RF Rx Instructions: Take 1 pack as directed for 6 days Referrals Follow up/Referrals: Provider,Referral, MD [Primary Care Provider] - See instructions Activity Restrictions/Add. Instructions Additional Instructions/Restrictions: Drink plenty of fluids. Take tylenol or ibuprofen for pain or fever. Take the medications as directed. Follow up with your regular doctor. GO TO THE ER FOR ANY WORSENING SYMPTOMS Clinical Impressions Clinical Impression: Pharyngitis, Otitis media Instructions Patient Instructions: Strep Throat, Middle Ear Infection, DI for Strep Throat Discharge ED Provider: Keny Edge [facility] General Stated complaint: Ears hurting and throat Time Seen by Provider: 07/23/23 19:01 History of Present Illness Provider Complaint: He states that for the past 3 days he has had sore throat and bilateral ear pain. Related Data Previous Rx's Medication Instructions Recorded amoxicillin 875 mg tablet 875 mg PO Q12H #20 tabs 07/23/23 zfwszppjeflprno-synbxsevprovhuy-PE 5 ml PO Q6H PRN Cough #240 mL 07/23/23 2 mg-30 mg-10 mg/5 mL oral syrup (Bromfed DM) methylprednisolone 4 mg tablets in 4 mg PO DIRECTED 6 days #21 tabs 07/23/23 a dose pack Allergies Allergy/AdvReac Type Severity Reaction Status Date / Time strawberry Allergy Verified 07/07/23 13:17 [facility] Disclaimer: The information contained in this section may have been updated after the patient was seen, as this information can be updated by other users. Medical History Atypical chest pain Constipation Daytime somnolence Dyspnea Flank pain Gastroesophageal reflux disease Kidney stone Obesity due to excess calories with serious comorbidity Obesity, morbid, BMI 40.0-49.9 Pericarditis Snoring Testosterone deficiency (~09/25/17) Vitamin D deficiency (~09/25/17) Surgical History No significant past surgical history Family History Other No significant family history Social History Smoking Status: Never smoker alcohol intake: never counseling provided: none substance use type: denies use current occupational status: other Travel in the last 8 weeks: None household members: family housing: house ROS Obtained: Yes All systems reviewed & no additional complaints except as documented Constitutional Constitutional: Denies chills, Reports fever(s) and Reports poor appetite Eyes Eyes: Denies eye discharge ENT Ears, Nose, Mouth, and Throat: Denies ear discharge, Reports otalgia, Denies hearing loss, Denies sinus pain and Reports sore throat Cardiovascular Cardiovascular: Denies chest pain and Denies dyspnea Respiratory Respiratory: Denies chest congestion, Reports cough and Denies dyspnea Gastrointestinal Gastrointestingal: Denies abdominal pain, diarrhea, nausea or vomiting Musculoskeletal Musculoskeletal: Denies arthralgias Integumentary/Breasts Skin/Breast: Denies rash Physical Exam General General appearance: alert and in no apparent distress Head Head exam: atraumatic, normocephalic and normal inspection Eye Eye exam: Present normal appearance, PERRL and EOMI ENT ENT exam: Present mucous membranes moist and normal external ear exam Expanded ENT Exam TM/Canal exam: Bilateral TM: erythema and bulging Nose exam: Absent sinus tenderness Mouth exam: Present normal external inspection; Absent drooling Teeth exam: Present normal inspection Throat exam: Present tonsillar erythema, tonsillomegaly and tonsillar exudate Neck Neck exam: Present normal inspection, full ROM and trachea midline; Absent tenderness, meningismus or lymphadenopathy Chest Chest inspection: Present normal inspection and symmetric chest wall rise; Absent tenderness Respiratory Respiratory exam: Present normal lung sounds bilaterally; Absent respiratory distress, wheezes or stridor Cardiovascular Cardiovascular exam: Present regular rate and normal rhythm; Absent systolic murmur or diastolic murmur Abdominal Exam Abdominal exam: Present soft and normal bowel sounds; Absent distention, tenderness, guarding, rebound or rigidity Extremities Exam Extremities exam: Present normal inspection and normal capillary refill; Absent calf tenderness Back Exam Back exam: Present normal inspection and full ROM; Absent tenderness, CVA tenderness (R) or CVA tenderness (L) Neurological Exam Neurological exam: Present alert, oriented X3 and CN II-XII intact Psychiatric Psychiatric exam: Present normal affect and normal mood Skin Skin exam: Present warm, dry, intact and normal color Medical Decision Making Medical Records Medical records reviewed: No I reviewed the patient's medical records. Daniel Inquiry Pt receiving controlled substance: No Lab Data Lab results reviewed: Yes I reviewed the patient's lab results.
[2023-07-23 19:25] LABS: UTC Strep Screen (Rapid) Negative (Negative)
[2023-07-23 19:26] LABS: UTC Influenza A Antigen Negative (Negative); UTC Influenza B Antigen Negative (Negative)
[2023-07-23 19:37] VITALS: BP 136/93; PULSE 99; RESP 19; TEMP 37.1; O2SAT 96
== END 2023-07-23 19:41 | disposition home or self-care (01) ==
PROVIDERS: Emergency Provider Nurse Practitioner Family
DX: H66.93 Otitis media, unspecified, bilateral (principal); J02.9 Acute pharyngitis, unspecified; K21.9 Gastro-esophageal reflux disease without esophagitis
CPT/HCPCS: 87804; 87880; 99212; 99214; G0463

== ENCOUNTER 2023-09-08 18:25 | Outpatient (CLI) | payer OTHER, SELFPAY ==
[2023-09-08 18:25] LABS: Basophils # 0.1 K/mm3 (0-0.2); Eosinophils # 0.4 K/mm3 (0.0-0.4); Eosinophils % 3.9 % (0.1-12.0); Hematocrit 47.3 % (42.0-52.0); Hemoglobin 15.5 g/dL (14.1-18.0); Lymphocytes # 2.1 K/mm3 (0.7-4.5); Lymphocytes % 21.8 % (10-50); Mean Corpuscular HGB Conc 32.7 g/dL (31.8-35.4); Mean Corpuscular Hemoglobin 29.3 pg (27.0-31.2); Mean Corpuscular Volume 89.4 fl (80-94); Mean Platelet Volume 8.5 fl (7.4-10.4); Monocytes # 0.5 K/mm3 (0.1-1.0); Monocytes % 5.5 % (1.7-9.3); Neutrophils # 6.5 K/mm3 (1.8-7.8); Neutrophils % 67.8 % (37.0-80.0); Platelet Count 332 K/mm3 (142-424); Red Blood Count 5.29 M/mm3 (4.60-6.20); Red Cell Distribution Width 13.8 % (11.5-17.5); White Blood Count 9.5 K/mm3 (4.8-10.8)
[2023-09-08 18:52] LABS: Alanine Aminotransferase 36 U/L (12-78); Albumin Level 4.7 g/dl (3.5-5.0); Albumin/Globulin Ratio 1.6 (1.1-1.8); Alkaline Phosphatase 100 U/L (38-126); Anion Gap 13.4 mEq/L (5-15); Aspartate Amino Transferase 35 U/L (17-59); Bilirubin,Total 0.7 mg/dl (0.2-1.3); Blood Urea Nitrogen 13 mg/dl (9-20); Calcium 9.7 mg/dl (8.4-10.2); Carbon Dioxide 24 mmol/L (22.0-30.0); Chloride 106 mmol/L (98-107); Chol/HDL Ratio 6.4 (1-3.5); Cholesterol 166 mg/dl (140-200); Estimated Glomerular Filt Rate 116 ml/min (>60); GFR (African American) 140 ML/MIN (>60); Glucose 80 mg/dl (74-100); HDL Cholesterol 26 mg/dl (40-60); Potassium 4.4 mmoL/L (3.5-5.1); Sodium 139 mmol/L (136-145); Total Protein,Serum 7.7 g/dl (6.3-8.2); Triglycerides 135 mg/dl (30-150); VLDL Cholesterol 27 mg/dL (0-40)
[2023-09-08 19:03] LABS: Direct LDL Cholesterol 104.37 mg/dL (100-129)
[2023-09-08 19:04] LABS: 25-OH Vitamin D, Total 24.9 ng/mL (30-100)
[2023-09-08 19:21] LABS: Thyroid Stimulating Hormone 0.22 uIU/mL (0.465-4.68)
[2023-09-10 08:36] LABS: Testosterone,Total 223 ng/dL (264-916)
== END 2023-09-08 23:59 ==
LOC: LAB.DROPOF 18:25
PROVIDERS: PCP Physician Assistant; Visit Provider Physician Assistant
DX: E34.9 Endocrine disorder, unspecified (principal); E55.9 Vitamin D deficiency, unspecified; Z68.41 Body mass index [BMI] 40.0-44.9, adult
CPT/HCPCS: 80053; 80061; 82306; 84403; 84443; 85025

== ENCOUNTER 2023-09-12 14:46 | Outpatient (CLI) | payer OTHER, SELFPAY ==
[2023-09-12 16:24] LABS: Free Thyroxine Index 3.3 ug/dL (5.93-13.13); T4 (Thyroxine) 9.2 ug/dl (5.53-11.0); Triiodothryronine (T3) Uptake 36 % (23.5-40.5)
[2023-09-12 16:38] LABS: Thyroid Stimulating Hormone 0.19 uIU/mL (0.465-4.68)
[2023-09-13 08:58] LABS: Thyroid Peroxidase Antibodies <9 IU/mL (0-34)
== END 2023-09-12 23:59 ==
PROVIDERS: PCP Physician Assistant; Visit Provider Physician Assistant
DX: R79.89 Other specified abnormal findings of blood chemistry (principal)
CPT/HCPCS: 36415; 84436; 84443; 84479; 86376

== ENCOUNTER 2023-09-19 08:44 | Outpatient (CLI) | payer OTHER, SELFPAY ==
--- NOTE | 2023-09-19 09:00 | US_ITS ---
FINAL REPORT CLINICAL HISTORY: low tsh COMPARISON: 07/30/2021 FINDINGS: THYROID ULTRASOUND: The right lobe of the thyroid measures 5 x 1.9 x 1.7 cm in size. No focal mass or nodule is identified. The left lobe of the thyroid measures 5 x 1.5 x 1.8 cm in size. No focal mass or nodule is identified. The isthmus of the thyroid gland measures 3 mm in thickness, and is unremarkable in appearance. IMPRESSION: Unremarkable thyroid ultrasound without evidence of focal mass or nodule. Reviewed, Interpreted and Dictated by Chandra Hernandez III, MD Transcribed by Keena Luis Authenticated and [facility]
== END 2023-09-19 23:59 ==
LOC: RAD 08:45
PROVIDERS: PCP Physician Assistant; Visit Provider Physician Assistant
DX: R79.89 Other specified abnormal findings of blood chemistry (principal)
CPT/HCPCS: 76536

== ENCOUNTER 2023-10-24 09:40 | Outpatient (CLI) | payer OTHER, SELFPAY ==
[2023-10-24 11:52] LABS: Thyroid Stimulating Hormone 0.48 uIU/mL (0.465-4.68)
[2023-10-24 12:20] LABS: Hemoglobin A1C 5.1 % (4.0-6.0)
[2023-10-24 15:25] LABS: Microscopic, Urine URINE MICROSCOPIC (MICROSCOPIC)
[2023-10-24 15:57] LABS: Appearance,Urine CLOUDY (Clear); Bilirubin,Urine Negative (Negative); Blood, Urine 1+ (Negative); Color,Urine YELLOW (Yellow); Glucose,Urine (UA) Negative (Negative); Ketones,Urine Negative (Negative); Leukocyte Esterase,Urine Negative (Negative); Nitrate,Urine Negative (Negative); PH,Urine 5.5 (5.0-8.5); Protein,Urine Negative (Negative); Specific Gravity, Urine >= 1.030 (1.005-1.030); Urobilinogen,Urine 0.2 EU/dl (0.2)
[2023-10-24 16:17] LABS: Amorphous Sediment,Urine 4+ /lpf; Bacteria,Urine 1+ /lpf; RBC,Urine Occasional #/hpf (0-3); Squamous Epithelial Cell,Urine Occasional #/hpf (0-5); WBC,Urine Occasional #/hpf (0-3)
[2023-10-25 08:36] LABS: Estradiol 15.1 pg/mL (7.6-42.6); FSH 2.3 mIU/mL (1.5-12.4); LH 3.9 mIU/mL (1.7-8.6); Prolactin 9.5 ng/mL (3.6-31.5); Sex Hormone Binding Globulin 20.9 nmol/L (16.5-55.9); Testosterone,Total 191 ng/dL (264-916)
[2023-10-29 01:13] LABS: Testosterone,Free 10.3 pg/mL (9.3-26.5)
[2023-11-03 09:11] LABS: Dihydrotestosterone DHT 21
== END 2023-10-24 23:59 | disposition home or self-care (01) ==
LOC: LAB 09:40
PROVIDERS: PCP Physician Assistant; Visit Provider Urology
DX: R31.9 Hematuria, unspecified (principal); N52.9 Male erectile dysfunction, unspecified; E34.9 Endocrine disorder, unspecified
CPT/HCPCS: 36415; 81001; 82626; 82670; 83001; 83002; 83036; 84146; 84270; 84402; 84403; 84443

== ENCOUNTER 2023-11-14 10:45 | Outpatient (CLI) | payer OTHER, SELFPAY ==
[2023-11-14 16:55] LABS: Microscopic, Urine URINE MICROSCOPIC (MICROSCOPIC)
[2023-11-14 18:18] LABS: Appearance,Urine CLEAR (Clear); Bilirubin,Urine Negative (Negative); Blood, Urine 1+ (Negative); Color,Urine YELLOW (Yellow); Glucose,Urine (UA) Negative (Negative); Ketones,Urine Negative (Negative); Leukocyte Esterase,Urine Negative (Negative); Nitrate,Urine Negative (Negative); Protein,Urine Negative (Negative); Specific Gravity, Urine 1.025 (1.005-1.030)
[2023-11-14 19:01] LABS: Bacteria,Urine Trace /lpf
== END 2023-11-14 23:59 | disposition home or self-care (01) ==
LOC: LAB.DROPOF 11-15 10:45
PROVIDERS: PCP Urology; Visit Provider Urology
DX: R31.9 Hematuria, unspecified (principal)
CPT/HCPCS: 81001

== ENCOUNTER 2023-11-24 10:07 | Outpatient (CLI) | payer OTHER, SELFPAY ==
--- NOTE | 2023-11-24 10:11 | US_ITS ---
FINAL REPORT CLINICAL HISTORY: pain/hematuria COMPARISON: None FINDINGS: RENAL ULTRASOUND Ultrasound images of the kidneys were obtained. Limited images of the liver parenchyma demonstrate fatty infiltration. The right kidney measures 12.2 cm in length. It is normal echogenicity. There is no hydronephrosis. The left kidney measures 12.0 cm in length. It is normal echogenicity. There is no hydronephrosis. IMPRESSION: Normal renal ultrasound. Fatty liver. Reviewed, Interpreted and Dictated by Chandra Hernandez III, MD Transcribed by Yenny Argueta Authenticated and [facility]
--- NOTE | 2023-11-24 10:11 | XR_ITS ---
FINAL REPORT CLINICAL HISTORY: possible renal; c/o left sided pain COMPARISON: None FINDINGS: SINGLE VIEW ABDOMEN A single view of the abdomen was obtained. There is a nonobstructive bowel gas pattern. There is a moderate stool burden. No abnormal calcifications are identified. IMPRESSION: Nonobstructive bowel gas pattern with a moderate stool burden. Reviewed, Interpreted and Dictated by Chandra Hernandez III, MD Transcribed by Yenny Argueta Authenticated and [facility]
== END 2023-11-24 23:59 | disposition home or self-care (01) ==
LOC: RAD 10:08
PROVIDERS: PCP Physician Assistant; Visit Provider Urology
DX: R31.9 Hematuria, unspecified (principal); Z87.448 Personal history of other diseases of urinary system
CPT/HCPCS: 74018; 76770

== ENCOUNTER 2023-12-12 16:00 | Outpatient (CLI) | payer OTHER, SELFPAY ==
[2023-12-12 15:59] LABS: Microscopic, Urine URINE MICROSCOPIC (MICROSCOPIC)
[2023-12-12 17:43] LABS: Appearance,Urine CLEAR (Clear); Bilirubin,Urine Negative (Negative); Blood, Urine TRACE-I (Negative); Color,Urine YELLOW (Yellow); Glucose,Urine (UA) Negative (Negative); Ketones,Urine Negative (Negative); Leukocyte Esterase,Urine Negative (Negative); Nitrate,Urine Negative (Negative); Protein,Urine Negative (Negative); Specific Gravity, Urine 1.025 (1.005-1.030); Urobilinogen,Urine 0.2 EU/dl (0.2)
== END 2023-12-12 23:59 | disposition home or self-care (01) ==
LOC: LAB.DROPOF 16:00
PROVIDERS: PCP Urology; Visit Provider Urology
DX: R31.9 Hematuria, unspecified (principal); E34.9 Endocrine disorder, unspecified
CPT/HCPCS: 81001

== ENCOUNTER 2024-01-04 12:13 | Day surgery (SDC) | payer OTHER, SELFPAY ==
--- NOTE | 2023-12-21 16:13 | SUR.PREOP ---
Spoke to pt regarding procedure. Went over arrival time and need for motor coach bus driver. Verified mailing address and let pt know we will be mailing a letter in the mail regarding EGD instructions, pt verbalized understanding.
[2024-01-04] MEDS: LACTATED RINGERS 1000ML 1,000 ML 25 ML IV (12:40)
[2024-01-04 12:42] VITALS: BP 115/67; PULSE 90; RESP 17; TEMP 36.6; O2SAT 98; BMI 43.5
[2024-01-04 13:40] VITALS: O2SAT 98
--- NOTE | 2024-01-04 13:48 | EXP.ANES.CKL ---
[facility] Disclaimer: The information contained in this section may have been updated after the patient was seen, as this information can be updated by other users. Medical History Gastroesophageal reflux disease Atypical chest pain Kidney stone Daytime somnolence Snoring Dyspnea Flank pain Testosterone deficiency (~09/25/17) Vitamin D deficiency (~09/25/17) Obesity, morbid, BMI 40.0-49.9 Obesity due to excess calories with serious comorbidity Constipation Pericarditis Surgical History H/O wisdom tooth extraction Family History Other Cancer Coronary artery disease Diabetes Hyperlipidemia Hypertension No significant family history Thyroid disorder Social History Smoking Status: Current every day smoker tobacco type: smokeless tobacco alcohol intake: current alcohol intake frequency: holidays/special occasions only counseling provided: none substance use type: denies use current occupational status: other Travel in the last 8 weeks: None household members: family housing: house [facility] Anesthesia Checklist Patient Identification Patient Identification: Arm Band Structural Data Admitted From: Home Planned Operative Procedure/s: EGD Consent for Planned Operative Procedure(s) Verified: Yes Verified Documents: Surgical Consent and History and Physical NPO Status Verified Time NPO: 00:00 Additional verifications Anesthesia Reactions: No Airway Assessment Mallampati Score:: Class II C-Spine Mobility Assessed: Yes TMJ Mobility Assessed: Yes Dentition: Good Dentition Neurological Assessment Level of Consciousness: Awake, Alert and Appropriate Anesthesia Plan Anesthesia Risk discussed: Yes Anesthesia Plan: Verified ASA Class: II Anesthesia Type: MAC
--- NOTE | 2024-01-04 13:53 | HMH.SCOPE ---
Procedure: Date: 01/04/24 Patient Date of :: 1995 Procedure Performed:: EGD Indications:: The patient is a 28-year-old who presents for EGD evaluation of chronic abdominal pain and intermittent dysphagia symptoms Performing Provider:: Landon Lopez MD Referring Provider:: Luh Akers APRN Sedation:: See RN record Procedure:: The gastroscope was gently passed through the incisoral orifice into the oral cavity and under direct visualization the esophagus was intubated. The endoscope was passed down the esophagus, through the stomach, and into the duodenum. Color, texture, mucosa, and anatomy of the esophagus, stomach, and duodenum were carefully examined with the scope. Findings:: The upper and mid esophagus appeared normal. In the lower third of the esophagus above the Z-line there was a small island of salmon-colored mucosa. Biopsies were obtained from this area and the distal and mid esophagus. Empiric esophageal dilatation was performed with a Cruz dilator at 54 Fr. inflammation characterized by erythema and congestion was found in the body and antrum of the stomach. Biopsies were taken with a cold forceps for histology. The examined duodenum appeared normal. On retroflexion view the fundus and cardia appeared normal. Impression: Small island of salmon-colored mucosa distal esophagus Gastritis Recommendations:: Await pathology Follow-up with referring provider as previously scheduled Complications:: None Estimated blood obtained (mL): 0 Colonoscopy Component Colonoscopy Component Was a colonoscopy performed during today's procedure?: No
[2024-01-04 13:55] VITALS: BP 140/91; PULSE 84; RESP 16; TEMP 36.8; O2SAT 94
[2024-01-04 14:05] VITALS: BP 137/74; PULSE 87; RESP 16; O2SAT 98
[2024-01-04 14:15] VITALS: BP 138/92; PULSE 81; RESP 18; O2SAT 97
[2024-01-04 14:25] VITALS: BP 118/72; PULSE 80; RESP 16; TEMP 36.6; O2SAT 98
== END 2024-01-04 14:25 | disposition home or self-care (01) ==
LOC: OUTP 12:14
PROVIDERS: PCP Physician Assistant; Visit Provider Internal Medicine
PROC: 0DJ08ZZ Inspection of Upper Intestinal Tract, Via Natural or Artificial Opening Endoscopic (ICD-10-PCS; CPT 43235; principal; 2024-01-04 13:30)
DX: R13.10 Dysphagia, unspecified (principal); R10.9 Unspecified abdominal pain
CPT/HCPCS: 43239; 43450; J7120

== ENCOUNTER 2024-02-19 09:46 | Emergency (ER) | payer OTHER, SELFPAY ==
[2024-02-19 10:54] VITALS: BP 124/79; PULSE 80; RESP 16; TEMP 36.6; O2SAT 97; BMI 43.2
--- NOTE | 2024-02-19 10:58 | ED_ITS ---
Discharge Plan Disposition Patient Disposition: Home, Self-Care Condition: Good Prescriptions Prescriptions: New amoxicillin 875 mg tablet 875 mg PO Q12H Qty: 20 0RF methylprednisolone 4 mg Tablets,Dose Pack 4 mg PO DIRECTED 6 Days Qty: 21 0RF Rx Instructions: Take 1 pack as directed for 6 days [id number]-[id number]-ZA [Bromfed DM] 2-30-10 mg/5 mL Syrup 5 ml PO Q6H PRN (Reason: Cough) Qty: 240 0RF Referrals Follow up/Referrals: Karyn Rivera PA [Primary Care Provider] - See instructions Activity Restrictions/Add. Instructions Additional Instructions/Restrictions: Drink plenty of fluids. Take tylenol or ibuprofen for pain or fever. Take the medications as directed. Follow up with your regular doctor. GO TO THE ER FOR ANY WORSENING SYMPTOMS Clinical Impressions Clinical Impression: Otitis media Instructions Patient Instructions: Middle Ear Infection Print Language Print Language: Belarusian Discharge ED Provider: Keny Edge [facility] [place] HPI General Stated complaint: Sore throat, pain in both ears, cough Mode of Arrival: Ambulatory Source of Information: Patient Limitations: No Limitations Time Seen by Provider: 02/19/24 10:58 Description of Symptoms (Recalled from Triage Doc. by RN): Reports sore throat and ear pain. HEENT Symptoms (Recalled from RN notes): Yes Resp Symptoms (Recalled from RN notes): No Skin Symptoms (Recalled from RN notes): No MS Symptoms (Recalled from RN notes): No Functional Status (Recalled from RN notes): wnl Related Data Previous Rx's ?Medication ?Instructions ?Recorded amoxicillin 875 mg tablet 875 mg PO Q12H #20 tabs 02/19/24 nvushkvqkpeywmm-wmgymhkkfupimfr-UQ 5 ml PO Q6H PRN Cough #240 mL 02/19/24 2 mg-30 mg-10 mg/5 mL oral syrup (Bromfed DM) methylprednisolone 4 mg tablets in 4 mg PO DIRECTED 6 days #21 tabs 02/19/24 a dose pack Allergies Allergy/AdvReac Type Severity Reaction Status Date / Time strawberry Allergy Verified 01/19/24 11:13 Worker's Comp Is this a Worker's Comp case?: No [facility] Disclaimer: The information contained in this section may have been updated after the patient was seen, as this information can be updated by other users. Medical History Gastroesophageal reflux disease Atypical chest pain Kidney stone Daytime somnolence Snoring Dyspnea Flank pain Testosterone deficiency (~09/25/17) Vitamin D deficiency (~09/25/17) Obesity, morbid, BMI 40.0-49.9 Obesity due to excess calories with serious comorbidity Constipation Pericarditis Surgical History H/O wisdom tooth extraction Family History Other Cancer Coronary artery disease Diabetes Hyperlipidemia Hypertension No significant family history Thyroid disorder Social History Smoking Status: Current every day smoker tobacco type: smokeless tobacco alcohol intake: current alcohol intake frequency: holidays/special occasions only counseling provided: none substance use type: denies use current occupational status: other Travel in the last 8 weeks: None household members: family housing: house ROS Obtained: Yes All systems reviewed & no additional complaints except as documented Constitutional Constitutional: Denies chills, Reports fever(s) and Reports poor appetite Eyes Eyes: Denies eye discharge ENT Ears, Nose, Mouth, and Throat: Denies ear discharge, Reports otalgia, Denies hearing loss, Denies sinus pain and Reports sore throat Cardiovascular Cardiovascular: Denies chest pain and Denies dyspnea Respiratory Respiratory: Denies chest congestion, Reports cough and Denies dyspnea Gastrointestinal Gastrointestingal: Denies abdominal pain, diarrhea, nausea or vomiting Musculoskeletal Musculoskeletal: Denies arthralgias Integumentary/Breasts Skin/Breast: Denies rash Physical Exam General General appearance: alert and in no apparent distress Head Head exam: atraumatic, normocephalic and normal inspection Eye Eye exam: Present normal appearance; Absent PERRL or EOMI ENT ENT exam: Present mucous membranes moist and normal external ear exam Expanded ENT Exam TM/Canal exam: Bilateral TM: erythema, bulging and effusion Nose exam: Absent sinus tenderness Nasal speculum exam: Bilateral: normal Mouth exam: Present normal external inspection and other; Absent drooling Teeth exam: Present normal inspection Throat exam: Present tonsillar erythema and tonsillomegaly Neck Neck exam: Present normal inspection, full ROM and trachea midline; Absent tenderness, meningismus or lymphadenopathy Chest Chest inspection: Present normal inspection and symmetric chest wall rise; Absent tenderness Respiratory Respiratory exam: Present normal lung sounds bilaterally; Absent respiratory distress, wheezes or stridor Cardiovascular Cardiovascular exam: Present regular rate, normal rhythm and normal heart sounds; Absent tachycardia or irregular rhythm Abdominal Exam Abdominal exam: Present soft and normal bowel sounds; Absent distention, tenderness, guarding, rebound or rigidity Extremities Exam Extremities exam: Present normal inspection and normal capillary refill; Absent tenderness, joint swelling or calf tenderness Back Exam Back exam: Present normal inspection and full ROM; Absent tenderness, CVA tenderness (R) or CVA tenderness (L) Neurological Exam Neurological exam: Present alert, oriented X3, CN II-XII intact, normal gait and reflexes normal; Absent motor sensory deficit Psychiatric Psychiatric exam: Present normal affect and normal mood Skin Skin exam: Present warm, dry, intact and normal color Lymphatic Lymphatic Findings: no adenopathy Medical Decision Making Medical Records Medical records reviewed: No I reviewed the patient's medical records. Daniel Inquiry Pt receiving controlled substance: No Vital Signs: 02/19/24 10:54 Temperature 97.9 F Temperature Source Oral Pulse Rate [Radial] 80 Respiratory Rate 16 Blood Pressure [Right Arm] 124/79 Blood Pressure Mean [Right Arm] 94 Blood Pressure Source [Right Arm] Automatic Cuff Blood Pressure Position [Right Arm] Sitting 02 Sat by Pulse Oximetry 97 Oxygen Delivery Method Room Air
[2024-02-19 11:00] LABS: UTC Strep Screen (Rapid) Negative (Negative)
[2024-02-19 11:21] VITALS: BP 124/79; PULSE 80; RESP 16; TEMP 36.6; O2SAT 97
== END 2024-02-19 11:22 | disposition home or self-care (01) ==
PROVIDERS: Emergency Provider Nurse Practitioner Family; PCP Physician Assistant
DX: H66.93 Otitis media, unspecified, bilateral (principal); R07.0 Pain in throat; H92.03 Otalgia, bilateral
CPT/HCPCS: 87880; 99212; 99214; G0463

== ENCOUNTER 2024-03-22 11:04 | Day surgery (SDC) | payer OTHER, SELFPAY ==
[2024-03-21 12:08] VITALS: BMI 43.5
[2024-03-22 11:14] VITALS: BP 139/67; PULSE 81; RESP 18; TEMP 36.3; O2SAT 97
[2024-03-22] MEDS: LACTATED RINGERS 1000ML 1,000 ML 25 ML IV (11:26)
--- NOTE | 2024-03-22 12:01 | EXP.ANES.CKL ---
[facility] Disclaimer: The information contained in this section may have been updated after the patient was seen, as this information can be updated by other users. Medical History Migraine Gastroesophageal reflux disease Atypical chest pain Kidney stone Daytime somnolence Snoring Dyspnea Flank pain Testosterone deficiency (~09/25/17) Vitamin D deficiency (~09/25/17) Obesity, morbid, BMI 40.0-49.9 Obesity due to excess calories with serious comorbidity Constipation Pericarditis Surgical History Hx of cardiac cath H/O wisdom tooth extraction Family History Other Bone cancer Breast cancer Cancer Coronary artery disease Diabetes Hyperlipidemia Hypertension Lung cancer Testicular cancer Thyroid disorder Social History Smoking Status: Current every day smoker tobacco type: smokeless tobacco alcohol intake: never counseling provided: none substance use type: denies use current occupational status: disabled Travel in the last 8 weeks: None household members: family housing: house caffeine: Yes [facility] Anesthesia Checklist Patient Identification Patient Identification: Arm Band and Verbal (Name & ) Structural Data Admitted From: Home Planned Operative Procedure/s: EGD Consent for Planned Operative Procedure(s) Verified: Yes Verified Documents: Surgical Consent and History and Physical NPO Status Verified Time NPO: 00:00 Additional verifications Anesthesia Reactions: No Airway Assessment Mallampati Score:: Class IV C-Spine Mobility Assessed: Yes TMJ Mobility Assessed: Yes Dentition: Good Dentition Neurological Assessment Level of Consciousness: Awake Hx Seizures: No Numbness or tingling in extremities: No Anesthesia Plan Anesthesia Risk discussed: Yes Anesthesia Plan: Verified ASA Class: III Anesthesia Type: MAC
[2024-03-22 13:10] VITALS: O2SAT 97
--- NOTE | 2024-03-22 13:18 | EXP.HP ---
History of Present Illness *Admission Date: 03/22/24 *Reason for visit:: Epigastric pain *History of present illness: Mr. Raymundo is a 28-year-old gentleman who is here for dyspepsia/epigastric pain. The examination is deemed medically necessary for EGD. The patient has been seen, interviewed and examined prior to the procedure by both myself and the anesthesia provider. [facility] Disclaimer: The information contained in this section may have been updated after the patient was seen, as this information can be updated by other users. Medical History Migraine Gastroesophageal reflux disease Atypical chest pain Kidney stone Daytime somnolence Snoring Dyspnea Flank pain Testosterone deficiency (~09/25/17) Vitamin D deficiency (~09/25/17) Obesity, morbid, BMI 40.0-49.9 Obesity due to excess calories with serious comorbidity Constipation Pericarditis Surgical History Hx of cardiac cath H/O wisdom tooth extraction Family History Other Bone cancer Breast cancer Cancer Coronary artery disease Diabetes Hyperlipidemia Hypertension Lung cancer Testicular cancer Thyroid disorder Social History Smoking Status: Current every day smoker tobacco type: smokeless tobacco alcohol intake: never counseling provided: none substance use type: denies use current occupational status: disabled Travel in the last 8 weeks: None household members: family housing: house caffeine: Yes Other Medical History Have you received the Flu Vaccine for this season: No Have you received the Pneumonia Vaccine: No Review of Systems Review of Systems Review of systems (narrative): Negative *Cardiovascular Comments: Negative *Gastrointestinal Comments: Negative *Genitourinary Comments: Negative *Musculoskeletal Comments: Negative *Neurologic Comments: Negative Meds Home Medications and Allergies Home Medications ?Medication ?Instructions ?Recorded ?Confirmed ?Type testosterone 1 pump topical DAILY 03/21/24 03/22/24 History New Prescriptions to Start Prescriptions: Allergies Allergy/AdvReac Type Severity Reaction Status Date / Time strawberry Allergy Unknown Verified 03/22/24 11:13 allergy reaction Exam Data for Last 24 hours Vital signs and Labs for Last 24 Hours: Temp Pulse Resp BP Pulse Ox O2 Del Method 97.3 F L 81 18 139/67 97 Room Air 03/22/24 11:14 03/22/24 11:14 03/22/24 11:14 03/22/24 11:14 03/22/24 11:14 03/22/24 11:14 I & O for Last 24 hours: Intake & Output 03/19/24 03/20/24 03/21/24 03/22/24 23:59 23:59 23:59 23:59 Weight 330 lb *Routine HEENT Exam Head: Present normocephalic Eye: Present EOMI and PERRL ENT: Present mucous membranes moist *Routine Neck Exam Neck: Present supple *Routine Respiratory Exam Respiratory: Present CTA bilaterally *Routine Cardiovascular Exam Cardiovascular: Present RRR *Routine Abdominal Exam Abdominal: Present soft and normoactive bowel sounds; Absent tenderness *Routine Rectal Exam Rectal:: deferred *Routine Genitalia Exam Genitalia:: deferred *Routine Extremities Exam Extremities: Absent cyanosis, clubbing or edema *Routine Skin Exam Skin: Present warm; Absent rash *Routine Neurological Exam Neurological: Present alert and oriented X3 Assessment and Plan *Assessment and plan (1) Epigastric pain: Status: Acute Category: Medical Code(s): R10.13 - Epigastric pain (2) Functional dyspepsia: Status: Acute Category: Medical Code(s): K30 - Functional dyspepsia Plan A/P: 1. Epigastric pain/functional dyspepsia with bloating and nausea is the preprocedural diagnosis. The patient will be anesthetized/sedated using MAC sedation. The patient has been seen and examined. Cardiac and lung assessment prior to the examination is stable. Proceed with planned EGD
--- NOTE | 2024-03-22 13:27 | P.PCN_ITS ---
[facility] [place] Procedure Note Date: 03/22/24 Time: 13:28 Procedure Note:: Upper Endoscopy Procedure Report: Esophagogastroduodenoscopy with cold biopsies Endoscopost: Farhat Power II, MD Referring Physician: Karyn Rivera PA-C Date of Procedure: March 22, 2024 Equipment: Olympus GIF 190 standard upper endoscope Sedation: MAC sedation Indications: Mr. Raymundo is a 28-year-old gentleman who is here for diagnostic evaluation of his epigastric abdominal pain and dyspepsia. He has had bloating, nausea and belching. He reports no heartburn or early satiety. He has had no weight loss. He did have an EGD on January 04, 2024 and had a small island of salmon-colored mucosa in the distal esophagus. Pathology at that point showed scant tissue and there was no histologic reading. Duodenal and gastric biopsies yielded no evidence of celiac disease or H. pylori. Procedure: Prior to the procedure, a history and physical exam was performed, and patient's medications and allergies were reviewed. The risks, benefits and alternatives of the sedation and procedure were discussed with the patient. All questions were answered and informed consent was obtained. The patient was brought to the procedure room. Patient identification and proposed procedure were verified by the physician and the nurse. The patient was placed in a left lateral decubitus position and the scope was passed under direct vision. Throughout the procedure, the patient's blood pressure, pulse, and oxygen saturations were monitored continuously. The upper GI endoscopy was accomplished without difficulty. The patient tolerated the procedure well. Findings: The scope was passed directly into the upper esophagus and advanced to the third portion of the duodenum. The post bulbar duodenum, ampulla and duodenal bulb were normal with normal mucosa and conniventes. The scope was withdrawn through a normal duodenal bulb and pylorus into the stomach. There was some linear reactive gastropathy of the antrum. The remainder of the antrum, body and fundus of the stomach were grossly normal. Upon retroflexion there was no hiatal hernia. 2 biopsies were taken in the antrum and along the lesser curvature for histology to rule out gastritis and/or H pylori. The scope was then withdrawn into the esophagus. There was a serrated Z-line but no evidence of Carbajal's esophagus. Biopsies were taken at the GE junction to rule out intestinal metaplasia of the GE junction. There was no evidence of reflux esophagitis, ring or other mucosal abnormalities. There were tertiary contractions and mild dysmotility. The remainder of the esophageal mucosa was normal. Impression: 1. Nonerosive GERD with mild esophageal dysmotility 2. Mild linear reactive gastropathy of antrum Plan: I will follow-up the biopsies. The patient is having symptoms of functional dyspepsia. We will discuss dietary measures and treatment options.
[2024-03-22 13:34] VITALS: BP 127/69; PULSE 87; RESP 16; TEMP 37.1; O2SAT 97
[2024-03-22 13:44] VITALS: BP 129/79; PULSE 74; RESP 16; O2SAT 97
[2024-03-22 13:54] VITALS: BP 133/77; PULSE 71; RESP 16; O2SAT 98
[2024-03-22 14:04] VITALS: BP 124/82; PULSE 72; RESP 16; O2SAT 98
== END 2024-03-22 14:15 | disposition home or self-care (01) ==
PROVIDERS: Visit Provider Internal Medicine Gastroenterology
PROC: 0DJ08ZZ Inspection of Upper Intestinal Tract, Via Natural or Artificial Opening Endoscopic (ICD-10-PCS; CPT 43239; principal; 2024-03-22 12:30)
DX: K30 Functional dyspepsia (principal); K21.9 Gastro-esophageal reflux disease without esophagitis; K22.4 Dyskinesia of esophagus; K31.9 Disease of stomach and duodenum, unspecified
CPT/HCPCS: 43239; J2704; J7120

== ENCOUNTER 2024-04-26 13:14 | Outpatient (CLI) | payer OTHER, SELFPAY ==
[2024-04-26 13:36] LABS: Alanine Aminotransferase 41 U/L (12-78); Albumin Level 4.3 g/dl (3.5-5.0); Albumin/Globulin Ratio 1.3 (1.1-1.8); Alkaline Phosphatase 94 U/L (38-126); Anion Gap 13.7 mEq/L (5-15); Aspartate Amino Transferase 34 U/L (17-59); Bilirubin,Total 0.6 mg/dl (0.2-1.3); Blood Urea Nitrogen 13 mg/dl (9-20); Calcium 9.3 mg/dl (8.4-10.2); Carbon Dioxide 27 mmol/L (22.0-30.0); Chloride 103 mmol/L (98-107); Estimated Glomerular Filt Rate 116 ml/min (>60); GFR (African American) 140 ML/MIN (>60); Globulin 3.2 g/dL (1.3-3.2); Glucose 73 mg/dl (74-100); Potassium 4.7 mmoL/L (3.5-5.1); Sodium 139 mmol/L (136-145); Total Protein,Serum 7.5 g/dl (6.3-8.2)
[2024-04-26 13:50] LABS: Free T4 (Free Thyroxine) 1.17 ng/dl (0.78-2.19)
[2024-04-26 14:06] LABS: Thyroid Stimulating Hormone 0.44 uIU/mL (0.465-4.68)
== END 2024-04-26 23:59 | disposition home or self-care (01) ==
LOC: LAB.DROPOF 13:14
PROVIDERS: PCP Internal Medicine; Visit Provider Internal Medicine
DX: Z00.00 Encounter for general adult medical examination without abnormal findings (principal); Z13.29 Encounter for screening for other suspected endocrine disorder
CPT/HCPCS: 80053; 84439; 84443

== ENCOUNTER 2024-05-04 16:44 | Outpatient (CLI) | payer OTHER, SELFPAY ==
[2024-05-04 16:35] LABS: Microscopic, Urine URINE MICROSCOPIC (MICROSCOPIC)
[2024-05-04 16:44] LABS: Appearance,Urine CLEAR (Clear); Bilirubin,Urine Negative (Negative); Blood, Urine TRACE-I (Negative); Color,Urine YELLOW (Yellow); Glucose,Urine (UA) Negative (Negative); Ketones,Urine Negative (Negative); Leukocyte Esterase,Urine Negative (Negative); Nitrate,Urine Negative (Negative); PH,Urine 6.5 (5.0-8.5); Protein,Urine Negative (Negative); Specific Gravity, Urine 1.025 (1.005-1.030)
[2024-05-04 17:06] LABS: Bacteria,Urine 1+ /lpf; Mucus,Urine 1+ /lpf; WBC,Urine Occasional #/hpf (0-3)
== END 2024-05-04 23:59 | disposition home or self-care (01) ==
LOC: LAB.DROPOF 16:45
PROVIDERS: PCP Internal Medicine; Visit Provider Internal Medicine
DX: R31.9 Hematuria, unspecified (principal); R30.0 Dysuria
CPT/HCPCS: 81001; 87086

== ENCOUNTER 2024-06-27 13:55 | Outpatient (CLI) | payer MEDICAID, SELFPAY | END 2024-06-27 23:59 | disposition home or self-care (01) | LOC: LAB.DROPOF 06-28 11:26 | PROVIDERS: PCP Internal Medicine; Visit Provider Nurse Practitioner Family | DX: R31.9 Hematuria, unspecified (principal) | CPT/HCPCS: 87086 ==

== ENCOUNTER 2024-07-16 10:50 | Outpatient (CLI) | payer MEDICAID, SELFPAY ==
[2024-07-17 13:11] LABS: H. pylori Breath Test Negative (Negative)
== END 2024-07-16 23:59 | disposition home or self-care (01) ==
LOC: LAB 10:51
PROVIDERS: PCP Internal Medicine; Visit Provider Nurse Practitioner Family
DX: K29.70 Gastritis, unspecified, without bleeding (principal); B96.81 Helicobacter pylori [H. pylori] as the cause of diseases classified elsewhere
CPT/HCPCS: 83013

== ENCOUNTER 2024-08-15 03:37 | Emergency (ER) | payer MEDICAID, SELFPAY ==
--- NOTE | 2024-08-15 03:34 | ECG_ITS ---
APPROVED REPORT Exam: Resting ECG HR:92 bpm ECG Measurements Heart Rate 92 AXES NM 139 P 28 QRSd 113 QRS 24 QT 336 T 38 QTc 386 Conclusion SINUS RHYTHM MODERATE INTRAVENTRICULAR CONDUCTION DELAY [110+ ms QRS DURATION] BORDERLINE ECG UNCONFIRMED REPORT Electronically signed by : KYM YEUNG, 08/16/2024 06:49:02
--- NOTE | 2024-08-15 03:38 | XR_ITS ---
PROCEDURE INFORMATION: Exam: XR Chest Exam date and time: 08/15/2024 3:52 AM Age: 29 years old Clinical indication: Pain; Chest pressure; Additional info: Cp TECHNIQUE: Imaging protocol: Radiologic exam of the chest. Views: 1 view. COMPARISON: CR CXR2V XR chest 2V 06/27/2018 8:52 PM FINDINGS: Lungs: Unremarkable. No consolidation. Pleural spaces: Unremarkable. No pleural effusion. No pneumothorax. Heart/Mediastinum: Unremarkable. No cardiomegaly. Vasculature: Unremarkable. Bones/joints: Unremarkable. IMPRESSION: No acute findings.
[2024-08-15 03:39] VITALS: BP 151/96; PULSE 81; RESP 17; TEMP 36.7; O2SAT 98; BMI 43.5
--- NOTE | 2024-08-15 03:40 | ED_ITS ---
Discharge Plan Disposition Patient Disposition: Home, Self-Care Prescriptions Prescriptions: No Action nicotine 21 mg/24 hr patch 24 hour 1 patch transdermal DAILY Qty: 14 0RF nicotine (polacrilex) 2 mg gum 2 mg buccal Q2H Qty: 20 1RF Referrals Follow up/Referrals: Provider,Referral, [Primary Care Provider] - See instructions Activity Restrictions/Add. Instructions Additional Instructions/Restrictions: Please follow-up with your primary care provider. Please return to the emergency department if you develop any new or worsening symptoms or become concerned for your health. Clinical Impressions Clinical Impression: Chest pain due to GERD Print Language Print Language: Hebrew Discharge ED Provider: Pilo Bush General Adult HPI General Chief complaint: Chest Pain Stated complaint: chest pain Time Seen by Provider: 08/15/24 03:40 History of Present Illness HPI narrative: 21-year-old male with history of morbid obese pericarditis, GERD, H. pylori presents for chest pain. He reports it is substernal in nature, nonradiating. It woke him from sleep approximately an hour prior to arrival. He reports that he has a heart problem but is not sure what it is. It was addressed a long time ago. He does not take anything for it. On chart review it appears that his issue was pericarditis. Patient also reports he has had some pain behind his left calf for the last month. No significant swelling or erythema. No history of blood clot. No recent fever or illness. No shortness of breath. Related Data Previous Rx's ?Medication ?Instructions ?Recorded nicotine (polacrilex) 2 mg gum 2 mg buccal Q2H #20 ea 06/01/24 nicotine 21 mg/24 hr daily 1 patch transdermal DAILY #14 ea 06/01/24 transdermal patch Allergies Allergy/AdvReac Type Severity Reaction Status Date / Time strawberry Allergy Unknown Verified 06/27/24 14:08 allergy reaction [facility] Disclaimer: The information contained in this section may have been updated after the patient was seen, as this information can be updated by other users. Medical History History of left heart catheterization Hx of sprain of arm Migraine Gastroesophageal reflux disease Atypical chest pain Kidney stone Daytime somnolence Snoring Dyspnea Flank pain Testosterone deficiency (~09/25/17) Vitamin D deficiency (~09/25/17) Obesity, morbid, BMI 40.0-49.9 Obesity due to excess calories with serious comorbidity Constipation Pericarditis Surgical History Hx of cardiac cath H/O wisdom tooth extraction Family History Other Bone cancer Breast cancer Cancer Coronary artery disease Diabetes Hyperlipidemia Hypertension Lung cancer Testicular cancer Thyroid disorder Social History Smoking Status: Current every day smoker tobacco type: smokeless tobacco alcohol intake: never counseling provided: none substance use type: denies use current occupational status: disabled Travel in the last 8 weeks: None household members: family housing: house caffeine: Yes Other Medical History Have you received the Flu Vaccine for this season: No Have you received the Pneumonia Vaccine: No ROS Obtained: Yes All systems reviewed & no additional complaints except as documented Physical Exam General General appearance: alert and in no apparent distress Head Head exam: atraumatic and normocephalic Eye Eye exam: Present normal appearance, PERRL and EOMI ENT ENT exam: Present normal oropharynx and normal external ear exam Neck Neck exam: Present normal inspection and full ROM Chest Chest inspection: Present normal inspection and symmetric chest wall rise; Absent tenderness Respiratory Respiratory exam: Present normal lung sounds bilaterally; Absent respiratory distress Cardiovascular Cardiovascular exam: Present regular rate and normal rhythm Abdominal Exam Abdominal exam: Present soft; Absent distention, tenderness or guarding Extremities Exam Extremities exam: Present normal inspection; Absent edema or joint swelling Back Exam Back exam: Present normal inspection; Absent tenderness Neurological Exam Neurological exam: Present alert and oriented X3; Absent motor sensory deficit Psychiatric Psychiatric exam: Present normal affect and normal mood Skin Skin exam: Present warm, dry and normal color Lymphatic Lymphatic Findings: no adenopathy Medical Decision Making Medical Records Medical records reviewed: Yes I reviewed the patient's medical records. Screening: Per USPSTF and CDC recommendations, given the prevalence of disease in our region, it is our hospital?s policy to screen for HIV and viral Hepatitis for all patients aged 18 and over and those with ongoing risk factors. Daniel Inquiry Pt receiving controlled substance: No Daniel was queried for this patient: No Vital Signs: 08/15/24 03:39 08/15/24 03:52 Temperature 98.0 F Temperature Source Oral Pulse Rate 81 Pulse Rate [Left] 81 Respiratory Rate 17 Blood Pressure [Right Arm] 151/96 H Blood Pressure Mean [Right Arm] 114 02 Sat by Pulse Oximetry 98 Oxygen Delivery Method Room Air Lab Data Lab results reviewed: Yes I reviewed the patient's lab results. Lab Results 08/15/24 03:38: WBC 10.0, RBC 5.38, Hgb 14.9, Hct 44.4, MCV 82.5, MCH 27.7, MCHC 33.6, RDW 13.0, Plt Count 344, MPV 9.3, Neut % (Auto) 45.5, Lymph % (Auto) 37.2, [place] % (Auto) 9.5 H, Eos % (Auto) 6.3, Baso % (Auto) 0.9, Neut # (Auto) 4.5, Lymph # (Auto) 3.7, [place] # (Auto) 1.0, Eos # (Auto) 0.6 H, Baso # (Auto) 0.1, D- Dimer 0.33, Sodium 139, Potassium 4.2, Chloride 105, Carbon Dioxide 25, Anion Gap 13.2, BUN 18, Creatinine 0.90, Estimated Creat Clear 138, Estimated GFR 100, Est GFR ( Amer) 122, Glucose 92, Calcium 9.2, Total Bilirubin 0.2, AST 30, ALT 37, Alkaline Phosphatase 108, Troponin I < 0.01, Total Protein 8.1, Albumin 4.5, Globulin 3.6 H, Albumin/Globulin Ratio 1.3, Lipase 121 08/15/24 03:38 08/15/24 03:38 Orders (Tests/Meds): ED MEDICATIONS Discontinued Medications Generic Name Dose Route Start Last Admin Trade Name Freq PRN Reason Stop Dose Admin Acetaminophen 1,000 mg 08/15/24 03:38 08/15/24 03:46 Acetaminophen 500mg Tab PO 08/15/24 03:39 1,000 mg ONCE ONE Administration Belladonna Alkaloids 60 ml 08/15/24 03:38 08/15/24 03:46 Belladonna Alkaloids 60 Ml Ml PO 08/15/24 03:39 60 ml ONCE ONE Administration ORDERS Category Date Time Status CXR --portable [XR chest portable] Stat Exams 08/15/24 03:38 Completed CBC w/Auto Diff [Complete Blood Count Auto Diff] Stat Lab 08/15/24 03:38 Completed CMP [Comprehensive Metabolic Panel] Stat Lab 08/15/24 03:38 Completed D-Dimer Stat Lab 08/15/24 03:38 Completed Lipase Stat Lab 08/15/24 03:38 Completed Troponin I Q3H Lab 08/15/24 03:38 Completed Troponin I Q3H Lab 08/15/24 06:45 Ordered ECG Data Tracing #1: I reviewed this ECG and interpreted as documented below: ECG initial impression date: 08/15/24 ECG initial impression time: 03:34 ECG normal with no acute: arrhythmias, ischemia, conduction abnormalities, chamber hypertrophy HEART Score History (anamnesis): Slightly suspicious ECG: Normal Age: <45 years Risk factors: 1-2 risk factors Troponin: </= normal limit HEART Score: 1 Medical Decision Narrative: 21-year-old male with history of obesity, GERD, distant history of pericarditis presents for chest pain. History was obtained via interactive discussion with patient, chart review. On arrival, patient is [afebrile, hemodynamically stable, satting appropriately, alert, oriented x4, GCS 15], moving all extremities spontaneously. Full physical exam performed and significant for no significant physical exam abnormality Differential includes but is not limited to GERD, musculoskeletal chest pain, ACS, PE, pericarditis. Patient was given Tylenol and GI cocktail with resolution of patient's chest pain. Workup initiated including chest x-ray EKG CBC CMP troponin D-dimer. On re-evaluation, patient continues to be chest pain-free Laboratory workup independently interpreted by me and significant for negative initial troponin, negative D-dimer, no significant electrolyte derangement. Imaging independently interpreted by me and significant for clear lungs bilaterally. See radiology read for full review of final results. Repeat troponin was considered, but deemed unnecessary given no significant concern for ACS at this time. Given patient history, exam and workup, patient's presentation most likely represents GERD. Patient was discharged in stable condition symptom-free. Return precautions given.. Procedures Risk/Benefits of Procedure(s) Were Explained: Yes Critical Care Critical Care Time Critical Care Time: No
[2024-08-15 03:45] LABS: Basophils # 0.1 K/mm3 (0-0.2); Basophils % 0.9 % (0.1-2.0); Eosinophils # 0.6 K/mm3 (0.0-0.4); Eosinophils % 6.3 % (0.1-12.0); Hematocrit 44.4 % (42.0-52.0); Hemoglobin 14.9 g/dL (14.1-18.0); Lymphocytes # 3.7 K/mm3 (0.7-4.5); Lymphocytes % 37.2 % (10-50); Mean Corpuscular HGB Conc 33.6 g/dL (31.8-35.4); Mean Corpuscular Hemoglobin 27.7 pg (27.0-31.2); Mean Corpuscular Volume 82.5 fl (80-94); Mean Platelet Volume 9.3 fl (7.4-10.4); Monocytes % 9.5 % (1.7-9.3); Neutrophils # 4.5 K/mm3 (1.8-7.8); Neutrophils % 45.5 % (37.0-80.0); Platelet Count 344 K/mm3 (142-424); Red Blood Count 5.38 M/mm3 (4.60-6.20)
[2024-08-15] MEDS: ACETAMINOPHEN 500MG TAB 1000 MG PO (03:46)
[2024-08-15] MEDS: BELLADONNA ALKALOIDS 60 ML ML PO (03:46)
[2024-08-15 03:51] LABS: Albumin Level 4.5 g/dl (3.5-5.0); Chloride 105 mmol/L (98-107); Potassium 4.2 mmoL/L (3.5-5.1); Sodium 139 mmol/L (136-145)
[2024-08-15 03:52] VITALS: PULSE 81
[2024-08-15 03:54] LABS: Alanine Aminotransferase 37 U/L (12-78); Albumin/Globulin Ratio 1.3 (1.1-1.8); Alkaline Phosphatase 108 U/L (38-126); Anion Gap 13.2 mEq/L (5-15); Aspartate Amino Transferase 30 U/L (17-59); Bilirubin,Total 0.2 mg/dl (0.2-1.3); Blood Urea Nitrogen 18 mg/dl (9-20); Calcium 9.2 mg/dl (8.4-10.2); Carbon Dioxide 25 mmol/L (22.0-30.0); Creatinine Clearance Estimated 138 mL/min (50-200); Estimated Glomerular Filt Rate 100 ml/min (>60); GFR (African American) 122 ML/MIN (>60); Globulin 3.6 g/dL (1.3-3.2); Glucose 92 mg/dl (74-100); Total Protein,Serum 8.1 g/dl (6.3-8.2)
[2024-08-15 04:00] LABS: D-Dimer 0.33 ug/mL (0.0-0.5)
[2024-08-15 04:08] LABS: Troponin I < 0.01 ng/ml (0.00-0.034)
[2024-08-15 04:11] LABS: Lipase 121 U/L (23-300)
[2024-08-15 04:23] VITALS: BP 126/84; PULSE 78; RESP 20; TEMP 36.6; O2SAT 96
== END 2024-08-15 04:24 | disposition home or self-care (01) ==
PROVIDERS: Emergency Provider Emergency Medicine
DX: K21.9 Gastro-esophageal reflux disease without esophagitis (principal); R07.9 Chest pain, unspecified; M79.605 Pain in left leg; F17.290 Nicotine dependence, other tobacco product, uncomplicated
CPT/HCPCS: 71045; 80053; 83690; 84484; 85025; 85378; 93005; 99284

== ENCOUNTER 2024-12-30 10:30 | Emergency (ER) | payer MEDICAID, SELFPAY ==
--- OUTSIDE RECORDS SUMMARY | 2024-12-30 10:36 | XMS_ITS | Clinical Summary ---
Author Organization [facility] Address [address] [place] [address] Care Team Providers Care Machine Heel Sprayer Name Role Phone Karyn Rivera Primary Care Provider [phone] Allergies Active Allergy Reactions Criticality Noted Date Comments Orient Unknown - Patient st ates they do not know rxn details Low 03/26/2024 Medications cholecalciferol (Vitamin D-3) 50 MCG (1999 UT) capsule Take 1 capsule (2,000 Units) by mouth 1 (one) time each day. Active testosterone (Androgel) 50 MG/5GM (1%) gel Place 50 mg on the skin 1 (one) time each day. Active Immunizations Immunization Administration Dates Next Due DTaP, Unspecified 09/14/2000, 8,01/22/1997,1996,0 1996 Hep B, Adolescent or Pediatric 06/18/1997,1996 HiB, unspecified 11/18/1997,01/22/1997, 7,1996 IPV 09/14/2000,1996,1996 MMR 11/18/1997 Meningococcal MPSV4 01/03/2009 OPV 06/18/1997 Tdap 01/19/2024,01/03/2009 Social History Tobacco Use Types Packs/Day Years Used Date Smoking Tobacco: Every Day Cigarettes Tobacco Cessation:Ready to Q uit: Not Asked; Counseling Given: Not Answered Alcohol Use Standard Drinks/Week Comments Yes 0 (1 standard drink = 0.6 oz pur e alcohol) holidays and occasions only Sex and Gender Information Value Date Recorded Sex Assigned at Not on file Legal Sex Male 8:52 PM EDT Gender Identity Not on file Sexual Orientation Not on file Plan of Treatment Health Maintenance Due Date Last Done Comments [facility]-Depression Screening 1996 [facility]-Infant/Child/Adol SDOH Screenings 1996 [facility]-Hepatitis B Vaccines (3 of 3 - 3-dose series) 08/13/1997 06/18/1997, 1996 [facility]-Varicella Vaccines (1 of 2 - 13+ 2-dose series) 2009 HPV Vaccines (1 - Male 3-dose series) 2011 [facility]- SDOH Screenings 2014 [facility]-Adult SDOH Screenings 2014 [id number] Vaccine ( - 2023- season) 2024 [facility]-Influenza Vaccine (#1) 2025 [facility]-DTaP,Tdap,and Td Vaccines (8 - Td or Tdap) 01/18/2034 01/19/2024, 01/03/2009, 09/14/2000, Additional history exists [facility]-Zoster Vaccines (1 of 2) 2046 [facility]-HIB Vaccines Completed 11/18/1997, 05/1997, 1996, Additional history exists [facility]-IPV Vaccines Completed 09/14/2000, 11/1997, 1996, Additional history exists [facility]-Hepatitis A Vaccines Aged Out No longer eligible based on patient's age to complete this topic [facility]-Pneumococcal Vaccine: Pediatrics (0 to 5 Years) and At-Risk Patients (6 to 49 Years) Aged Out No longer eligible based on patient's age to complete this topic [facility]-Rotavirus Vaccines Aged Out No lo nger eligible based on patient's age to complete this topic Insurance [facility] [place] [address] Care Teams Machine Heel Sprayer Relationship Specialty Start Date End Date Karyn Rivera PA [address] [place] [address] PCP - General 03/26/24
[2024-12-30 10:37] VITALS: BP 154/88; PULSE 69; RESP 15; TEMP 36.7; O2SAT 97; BMI 46.3
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
[2024-12-30] MEDS: ACETAMINOPHEN 500MG TAB 1000 MG PO (10:47)
[2024-12-30] MEDS: IBUPROFEN 600 MG TABLET PO (10:48)
[2024-12-30 10:54] LABS: Strep Scrn Group A (Rapid) Negative (Negative)
[2024-12-30 10:56] VITALS: BP 141/78; PULSE 88; RESP 15; TEMP 36.7; O2SAT 99
== END 2024-12-30 10:50 | disposition home or self-care (01) ==
PROVIDERS: Emergency Provider Student in an Organized Health Care Education/Training Program; PCP Internal Medicine
DX: H65.01 Acute serous otitis media, right ear (principal); J02.9 Acute pharyngitis, unspecified; K21.9 Gastro-esophageal reflux disease without esophagitis; F17.200 Nicotine dependence, unspecified, uncomplicated
CPT/HCPCS: 87430; 99283

== ENCOUNTER 2024-12-31 12:08 | Outpatient (CLI) | payer MEDICAID, SELFPAY ==
[2024-12-31 14:45] LABS: Coronavirus 19, PCR Not Detected (NotDetected); Influenza A, PCR Not Detected (NotDetected); Influenza B, PCR Not Detected (NotDetected)
--- OUTSIDE RECORDS SUMMARY | 2025-01-01 12:26 | XMS_ITS | Clinical Summary ---
Author Organization [facility] Address [address] [place] [address] Care Team Providers Care Precision Dancer Name Role Phone Karyn Rivera Primary Care Provider [phone] Allergies Active Allergy Reactions Criticality Noted Date Comments Duck Unknown - Patient st ates they do [...] SDOH Screenings 2014 [facility]-Adult SDOH Screenings 2014 [id number] Vaccine ( - 2023- season) 2024 [facility]-Influenza [...] patient's age to complete this topic Insurance [facility] MEDICAID Care Teams Precision Dancer Relationship Specialty Start Date End Date Karyn Rivera PA [address] [place] [address] PCP - General 03/26/24
== END 2024-12-31 23:59 | disposition home or self-care (01) ==
LOC: LAB.DROPOF 01-01 12:20
PROVIDERS: PCP Student in an Organized Health Care Education/Training Program; Visit Provider Student in an Organized Health Care Education/Training Program
DX: J06.9 Acute upper respiratory infection, unspecified (principal)
CPT/HCPCS: 87631

== ENCOUNTER 2025-05-30 13:48 | Outpatient (CLI) | payer MEDICAID, SELFPAY ==
[2025-05-30 20:38] LABS: Coronavirus 19, PCR Not Detected (NotDetected); Influenza A, PCR Not Detected (NotDetected); Influenza B, PCR Not Detected (NotDetected)
--- OUTSIDE RECORDS SUMMARY | 2025-05-31 09:44 | XMS_ITS ---
Author Organization Unknown ENCOUNTERS Encounter Performer Location Date Diagnosis Diagnosis Status Pre Admit [facility] [address] [place] [address] [id number] Emergency [facility] [address] [place] [address] [id number] [facility] Emergency [facility] [address] [place] [address] [id number] ESAU Pre Admit [facility] [address] [place] [address] [id number] Pre Admit [facility] [address] [place] [address] [id number] Emergency [facility] [address] [place] [address] [id number] ESAU Pre Admit [facility] [address] [place] [address] [id number] Emergency [facility] [address] [place] [address] [id number] ESAU Emergency [facility] [address] [place] [address] [id number] ESAU Pre Admit [facility] [address] [place] [address] [id number] Pre Admit [facility] [address] [place] [address] [id number] Emergency [facility] [address] [place] [address] [id number] ESAU Emergency [facility] [address] [place] [address] [id number] ESAU Pre Admit [facility] [address] [place] [address] [id number] Pre Admit Paty Guerrero [facility] [address] [place] [address] [id number] Emergency Paty Soliman [facility] [address] [place] [address] [id number] ESAU Emergency Keny Edge [facility] [address] [place] [address] [id number] ESAU Pre Admit Keny Minesh [facility] [address] [place] [address] [id number] Emergency Pilo Bush [facility] [address] [place] [address] [id number] ESAU Pre Admit Pilo Bush [facility] [address] [place] [address] [id number] Emergency [facility] [address] [place] [address] [id number] ESAU Emergency Karyn Rivera [facility] [address] [place] [address] [id number] ESAU Emergency [facility] [address] [place] [address] [id number] ESAU Emergency [facility] [address] [place] [address] [id number] ESAU Emergency [facility] [address] [place] [address] [id number] ESAU Emergency [facility] [address] [place] [address] [id number] ESAU Emergency Keny Minesh [facility] [address] [place] [address] [id number] ESAU Emergency Paty Guerrero [facility] [address] [place] [address] [id number] ESAU Emergency Jose Juarez [facility] [address] [place] [address] [id number] ESAU Emergency Basilio Main [facility] [address] [place] [address] [id number] ESAU *Note: Encounters from your own facility or health system may be excluded. Allergies, Adverse Reactions, Alerts Allergen Type Severity Identification Date strawberry drug allergy 0 [id number] STRAWBERRIES (FOOD) propensity to adverse reactions 0 [id number] Medications Name Date Quantity Days Supplied GPI Number
--- OUTSIDE RECORDS SUMMARY | 2025-05-31 09:44 | XMS_ITS | Clinical Summary ---
Author Organization [facility] Address [address] [place] [address] Care Team Providers Care Marketing Engineer Name Role Phone Karyn Rivera Primary Care Provider [phone] Allergies Active Allergy Reactions Criticality Noted Date Comments [place] Unknown - Patient st ates they do [...] of 2 - 13+ 2-dose series) 2009 [facility]- SDOH Screenings 2014 [facility]-Adult SDOH Screenings 2014 [id number]-40 Vaccine ( - 2024- season) 2025 [facility]-Influenza Vaccine (#1) 2025 [facility]-DTaP,Tdap,and Td Vaccines (8 - Td or Tdap) 01/18/2034 01/19/2024, 01/03/2009, 09/14/2000, Additional history exists [facility]-Zoster Vaccines (1 of 2) 2046 [facility]-HIB Vaccines Completed 11/18/1997, 05/1997, 1996, Additional history exists [facility]-IPV Vaccines Completed 09/14/2000, 11/1997, 1996, Additional history exists HPV Vaccines (No Doses Required) Completed [facility]-Hepatitis A Vaccines Aged Out No longer eligible based on patient's age to complete this topic [facility]-Pneumococcal Vaccine: Pediatrics (0 to 5 Years) and At-Risk Patients (6 to 49 Years) Aged Out No longer eligible based on patient's age to complete this topic [facility]-Rotavirus Vaccines Aged Out No lo nger eligible based on patient's age to complete this topic Insurance [facility] [place] [address] Care Teams Marketing Engineer Relationship Specialty Start Date End Date Karyn Rivera PA [address] [place] [address] PCP - General 03/26/24
== END 2025-05-30 23:59 | disposition home or self-care (01) ==
LOC: LAB.DROPOF 05-31 09:42
PROVIDERS: PCP Internal Medicine; Visit Provider Student in an Organized Health Care Education/Training Program
DX: J06.9 Acute upper respiratory infection, unspecified (principal)
CPT/HCPCS: 87631